=== PATIENT | female | born 1985 | race African-American/Black ===

== ENCOUNTER 2020-05-23 13:27 | Emergency (ER) | payer MEDICAID, SELFPAY ==
[2020-05-23 13:37] VITALS: BP 99/60; PULSE 79; RESP 16; TEMP 36.6; O2SAT 100; BMI 29.1
--- NOTE | 2020-05-23 14:02 | CT_ITS ---
EXAMINATION: CT ABDOMEN AND PELVIS WITHOUT CONTRAST CLINICAL INFORMATION: Back pain COMPARISON: Previous CT of the abdomen and pelvis January 2020 TECHNIQUE: Multidetector volumetric imaging was performed from the superior aspect of the liver through the pubic symphysis. Sagittal and coronal reformatted images were obtained on the technologist's workstation. This CT examination was performed using dose optimization techniques as appropriate, variously including the following: *Automated exposure control *Adjustment of mA and/or kV according to patient size (this includes techniques or standardized protocols for targeted exams where dose is matched to indication/reason for exam; i.e. extremities or head) *Use of iterative reconstruction technique DLP: 628 mGy-cm FINDINGS: LUNG BASES: The visualized lung bases are clear. There is a nodule in the medial inferior right breast that is partially visualized and measures 1 cm axial image 1. This is similar to January 2020 LIVER, GALLBLADDER, AND BILIARY TREE: The liver is normal in size, shape, and attenuation. No focal hepatic lesion or biliary ductal dilatation is present. The gallbladder is unremarkable with no evidence of radiopaque gallstones, gallbladder wall thickening, or obvious pericholecystic inflammatory changes. PANCREAS: Unremarkable. SPLEEN: Unremarkable. ADRENAL GLANDS: Unremarkable. KIDNEYS AND URETERS: The kidneys are normal in size, shape, and attenuation. No hydronephrosis, hydroureter, or calculi seen. No perinephric stranding. BLADDER: Unremarkable. GASTROINTESTINAL TRACT: The small and large bowel are unremarkable. The appendix has been removed. The stomach is unremarkable. ABDOMINAL WALL: No significant hernia is appreciated. LYMPH NODES: There is shotty bilateral inguinal lymphadenopathy that is stable. VASCULAR: Unremarkable. PELVIC VISCERA: Unremarkable. OSSEOUS STRUCTURES: Unremarkable. CT/CT abdomen pelvis wo con IMPRESSION: 1 cm nodule in the right medial inferior breast. This is only partially visualized. This appears unchanged from January 2020 exam. Correlation with physical exam and mammogram or ultrasound should be considered. Otherwise unremarkable exam.
--- NOTE | 2020-05-23 14:03 | ED_ITS ---
HPI - Back Pain/Injury General Chief Complaint: Back Pain/Injury Stated Complaint: LOWER BACK PAIN X1 DAY Time Seen by Provider: 05/23/20 13:42 Source: patient and EMS Mode of arrival: EMS Limitations: no limitations History of Present Illness HPI Narrative: 34yoF c PMHx of asthma presenting to the ED via EMS c complaints of lower back pain since yesterday. Worse with any type of movement. Relieved by nothing. Denies any additional complaints or concerns at this time. Related Data Previous Rx's Medication Instructions Recorded cyclobenzaprine 10 mg PO TID PRN #10 tab 05/23/20 ibuprofen 800 mg PO Q8H PRN #14 tab 05/23/20 lidocaine [Lidoderm] 1 patch TOPICAL DAILY #15 ea 05/23/20 oxycodone-acetaminophen [Percocet] 1 tab PO Q6H PRN #10 tab 05/23/20 prednisone 40 mg PO DAILY 5 Days #10 tab 05/23/20 Allergies Allergy/AdvReac Type Severity Reaction Status Date / Time No Known Allergies Allergy Unverified 03/22/20 15:41 Review of Systems Review of Systems: Constitutional : No trauma, No Weight loss, No Fever, No Chills, ENT/Mouth : No Hearing loss, No Ear Pain, No Nasal Congestion, No Sinus Pain, No Hoarseness, No sore throat, No Rhinorrhea, No Swallowing Difficulty Cardiovascular : No Chest Pain, No SOB Respiratory : No Cough, No Dyspnea Gastrointestinal : No Nausea, No Vomiting, No Diarrhea, No abdominal Pain, No Hematochezia, No Melena Genitourinary : No Dysuria, No Urinary Frequency, No Hematuria, No Urinary or Bowel Incontinence/retention Musculoskeletal : + Back pain, No neck pain, No joint stiffness, No joint swelling Skin : No Skin Lesions, No rash or signs of infection Neuro : No Weakness, No radiation, No Numbness, No Paresthesias, No headache, no loss of bowel or bladder incontinence, no saddle anesthesia Denies history of IV drug usage. Yes all other systems are reviewed and are negative [facility] Past Medical History Attestation statement: The following information was validated with the patient. Medical History Asthma Surgical History History of appendectomy Social History Social History Advance Directives: No Advance Directives Information Provided: No Physical Exam Vital Signs: Vital Signs: Last Vital Signs Temp 97.9 F 05/23/20 13:37 Pulse 79 05/23/20 13:37 Resp 16 05/23/20 13:37 BP 99/60 05/23/20 13:37 Pulse Ox 100 05/23/20 13:37 Body Mass Index 29.1 vital signs have been reviewed as normal and appeared to be correct. Blood pressure normal. Heart rate normal. Respiration rate normal. Temperature normal. Oxygen saturation normal. Appearance: Alert. Oriented X3. No acute distress. Head: Normal external exam. Normocephalic. Atraumatic. No Borjas signs noted. No raccoon eyes noted Eyes: PERRLA. EOMI. Conjunctiva and sclera normal. Eyelids normal. ENT: EAC normal. TM's Normal. Pharynx normal. Uvula midline. Moist mucous membranes. No trismus noted. No drooling noted. No muffled voice noted. Neck: Normal inspection. Neck supple. FROM. No adenopathy. Thyroid Normal. No meningeal signs. No neck mass noted. CVS: Normal heart rate and rhythm. Heart sound normal. No murmurs noted. Pulses normal throughout. Respiratory: No respiratory distress. Painless inspiration. Breath sounds normal. No wheezes/rales/rhonchi noted. Chest nontender. No accessory muscle usage noted or decreased air movement noted. Abdomen: Soft and nontender. Bowel sounds normal in all 4 quadrants. No distention noted. No organomegaly noted. No visible injury noted. Back: No CVA tenderness. Full range of motion noted. No obvious deformities, or edema. Mild para-spinal muscular tenderness from lumbar region to coccyx. Full ROM in back and lower extremities. 5/5 strength hip extension/flexion, abduction, adduction. Mild Lumbar pain with hip flexion against resistance. Straight leg raise test negative on right; Straight leg raise test negative on left; Reflexes normal ankle and knee bilaterally; EHL motor strength normal bilaterally Skin: Skin warm and dry. Normal skin color. Normal skin turgor. No rashes/lesions/lacerations noted. Extremities: No lower extremity edema. Extremities exhibit normal range of motion. Extremities nontender. Neuro: Oriented X 3. No motor deficit. No sensory deficit. Reflexes normal. Course Course Course Narrative: Pt c likely muscular pain, but could be herniated disc. Neuro exam shows no deficits. Not c/w AAA/epidural abscess/dissection.No high risk Hx (Incont, fever, immunosupp, recent surgery/LP, coag, signif trauma, wt loss, puls mass, hx/o Ca, TB, or IVDU) to warrant MRI today. Not c/w Pyelo/UTI/spinal fx. Not cauda equina syndrome. Will obtain a CT scan abdomen pelvis to evaluate for possible kidney stones or any other acute processes if negative will DC c meds and f/u. MDM - Back Pain/Injury Medical Records Attestation: I reviewed the patient's medical records. Imaging Data CT scan - abdomen: Attestation: I personally reviewed and interpreted this imaging study as follows: Radiologist's impression: FINDINGS: LUNG BASES: The visualized lung bases are clear. There is a nodule in the medial inferior right breast that is partially visualized and measures 1 cm axial image 1. This is similar to January 2020 LIVER, GALLBLADDER, AND BILIARY TREE: The liver is normal in size, shape, and attenuation. No focal hepatic lesion or biliary ductal dilatation is present. The gallbladder is unremarkable with no evidence of radiopaque gallstones, gallbladder wall thickening, or obvious pericholecystic inflammatory changes. PANCREAS: Unremarkable. SPLEEN: Unremarkable. ADRENAL GLANDS: Unremarkable. KIDNEYS AND URETERS: The kidneys are normal in size, shape, and attenuation. No hydronephrosis, hydroureter, or calculi seen. No perinephric stranding. BLADDER: Unremarkable. GASTROINTESTINAL TRACT: The small and large bowel are unremarkable. The appendix has been removed. The stomach is unremarkable. ABDOMINAL WALL: No significant hernia is appreciated. LYMPH NODES: There is shotty bilateral inguinal lymphadenopathy that is stable. VASCULAR: Unremarkable. PELVIC VISCERA: Unremarkable. OSSEOUS STRUCTURES: Unremarkable. CT/CT abdomen pelvis wo con IMPRESSION: 1 cm nodule in the right medial inferior breast. This is only partially visualized. This appears unchanged from January 2020 exam. Correlation with physical exam and mammogram or ultrasound should be considered. Otherwise unremarkable exam. Discharge Plan Discharge Clinical Impression: Back pain, Muscle spasm Patient Disposition: Home, Self-Care Instructions: Back Pain (ED), Lower Back Exercises (ED) Prescriptions: New cyclobenzaprine 10 mg tablet 10 mg PO TID PRN (Reason: muscle spasm) Qty: 10 RF: 0 ibuprofen 800 mg tablet 800 mg PO Q8H PRN (Reason: pain) Qty: 14 RF: 0 oxycodone-acetaminophen [Percocet] 5-325 mg tablet 1 tab PO Q6H PRN (Reason: pain) Qty: 10 RF: 0 prednisone 20 mg tablet 40 mg PO DAILY 5 Days Qty: 10 RF: 0 lidocaine [Lidoderm] 5 % adhesive patch,medicated 1 patch topical DAILY Qty: 15 RF: 0 Referrals: Physician,Unknown [Primary Care Provider] - 2 days (your pcp) Stand Alone Forms: Work/School Release Print Language: Singaporean
[2020-05-23] MEDS: Cyclobenzaprine HCl 10 MG TABLET PO (14:25)
[2020-05-23] MEDS: NaPROXEN 500 MG TABLET PO (14:25)
[2020-05-23] MEDS: oxyCODONE HCl Immed Release 5 MG TABLET PO (15:53)
== END 2020-05-23 16:31 | disposition home or self-care (01) ==
PROVIDERS: Emergency Provider Emergency Medicine
DX: M54.5 Low back pain (principal); M62.830 Muscle spasm of back; R10.9 Unspecified abdominal pain; Z79.899 Other long term (current) drug therapy
CPT/HCPCS: 74176; 99284

== ENCOUNTER 2020-10-23 12:01 | Emergency (ER) | payer MEDICAID, SELFPAY ==
--- NOTE | ~2020-10-23 | XR_ITS ---
EXAMINATION: XR CHEST CLINICAL INFORMATION: Cough. Chest tightness. COMPARISON: Thoracic spine radiographs dated 07/03/2019. TECHNIQUE: Frontal view of the chest was obtained. FINDINGS: The lungs are clear. The cardiomediastinal silhouette is normal in size. There is no pleural effusion or pneumothorax. No acute osseous abnormality. XR/XR chest 1V IMPRESSION: No acute cardiopulmonary findings.
--- NOTE | 2020-10-23 12:39 | ED_ITS ---
HPI - General Adult General Chief complaint: General Medical <FATOUMATA Lujan - Last Filed: 10/23/20 14:20> Stated complaint: RUNNING NOSE CHEST HEADACHE <FATOUMATA Lujan Last Filed: 10/23/20 14:20> Time Seen by Provider: 10/23/20 12:38 <FATOUMATA Lujan - Last Filed: 10/23/20 14:20> Source: patient <FATOUMATA Lujan - Last Filed: 10/23/20 14:20> Mode of arrival: ambulatory <FATOUMATA Lujan - Last Filed: 10/23/20 14:20> Limitations: no limitations <FATOUMATA Lujan Last Filed: 10/23/20 14:20> History of Present Illness HPI narrative: 35 y/o female with history of childhood asthma presenting with 2 days of chills, nasal congestion, headaches and dry cough. She also reports 2 episodes of nausea and vomiting. No abdominal pain but she reports a decreased appetite. No known COVID exposure but she works in a [employer]. She denies chest pain, SOB or [place]. <FATOUMATA Lujan - Last Filed: 10/23/20 14:20> MD complaint: COVID symptoms <FATOUMATA Lujan - Last Filed: 10/23/20 14:20> Onset (ago): day(s) (2) <FATOUMATA Lujan Last Filed: 10/23/20 14:20> Location: head, chest and abdomen <FATOUMATA Lujan Last Filed: 10/23/20 14:20> Radiation: non-radiation <FATOUMATA Lujan - Last Filed: 10/23/20 14:20> Severity: moderate <FATOUMATA Lujan Last Filed: 10/23/20 14:20> Quality: aching <FATOUMATA Lujan Last Filed: 10/23/20 14:20> Pain Consistency: intermittent <FATOUMATA Lujan Last Filed: 10/23/20 14:20> Relieving factors: rest <FATOUMATA Lujan Last Filed: 10/23/20 14:20> Exacerbating factors: none <FATOUMATA Lujan Last Filed: 10/23/20 14:20> Associated symptoms: cough, headaches, loss of appetite, nausea/vomiting and weakness <FATOUMATA Lujan - Last Filed: 10/23/20 14:20> Treatments prior to arrival: none <FATOUMATA Lujan - Last Filed: 10/23/20 14:20> Related Data Home medications: Previous Rx's Medication Instructions Recorded cyclobenzaprine 10 mg PO TID PRN #10 tab 05/23/20 ibuprofen 800 mg PO Q8H PRN #14 tab 05/23/20 lidocaine [Lidoderm] 1 patch TOPICAL DAILY #15 ea 05/23/20 oxycodone-acetaminophen [Percocet] 1 tab PO Q6H PRN #10 tab 05/23/20 prednisone 40 mg PO DAILY 5 Days #10 tab 05/23/20 <FATOUMATA Lujan - Last Filed: 10/23/20 14:20> Allergies/adverse reactions: Allergies Allergy/AdvReac Type Severity Reaction Status Date / Time No Known Allergies Allergy Unverified 03/22/20 15:41 <FATOUMATA Lujan - Last Filed: 10/23/20 14:20> Review of Systems Review of Systems: Constitutional: No Fever, No Chills ENT/Mouth: + sore throat, + Rhinorrhea Cardiovascular: No Chest Pain, No SOB Respiratory: + Cough, No Sputum, No Wheezing, No dyspnea Gastrointestinal: + Nausea, + Vomiting, No Diarrhea, No abdominal Pain Genitourinary: No Dysuria, No Urinary Frequency, No Hematuria Musculoskeletal: No joint pain, + Myalgias Skin: No Skin Lesions, No rash Neuro: No Weakness, No Numbness, + Dizziness, + Headache Psych: + Anxiety/Panic Heme/Lyph: No Lymphadenopathy <FATOUMATA Lujan - Last Filed: 10/23/20 14:20> [facility] Past Medical History Attestation statement: The following information was validated with the patient. <FATOUMATA Lujan - Last Filed: 10/23/20 14:20> Medical History: Medical History Asthma <FATOUMATA Lujan - Last Filed: 10/23/20 14:20> Surgical History: Surgical History History of appendectomy <FATOUMATA Lujan - Last Filed: 10/23/20 14:20> Social History Social History: Social History Alcohol intake: never Advance Directives: No Advance Directives Information Provided: No <FATOUMATA Lujan - Last Filed: 10/23/20 14:20> Physical Exam Vital Signs: Vital Signs: Last Vital Signs Temp 99.0 F 10/23/20 12:43 Pulse 95 10/23/20 12:43 Resp 16 10/23/20 12:43 BP 118/76 10/23/20 12:43 Pulse Ox 97 10/23/20 12:43 Body Mass Index 29.0 Appearance: Alert. Oriented X3. No acute distress. Eyes: Pupils equal, round and reactive to light. ENT: Pharynx normal. Neck: Normal inspection. Neck supple. CVS: Normal heart rate and rhythm. Pulses normal. Respiratory: No respiratory distress. Breath sounds normal. Abdomen: Soft and nontender. +BS x4 Skin: Skin warm and dry. Normal skin color. Normal skin turgor. No rashes. Extremities: No lower extremity edema. Neuro: Oriented X 3. Non-focal, steady gait. <FATOUMATA Lujan - Last Filed: 10/23/20 14:20> Vital Signs: Last Vital Signs Temp 99.0 F 10/23/20 12:43 Pulse 95 10/23/20 12:43 Resp 16 10/23/20 12:43 BP 118/76 10/23/20 12:43 Pulse Ox 97 10/23/20 12:43 Body Mass Index 29.0 <Graham Fried MD - Last Filed: 10/31/20 09:05> Course Course Course Narrative: Rapid medical exam: 35 yo otherwise healthy female presenting with feeling unwell for the last 2 days. She reports dry cough, body aches, headaches, nasal congestion, and chest tightness when coughing. Appears non-toxic and lungs are clear. Will get Viral PCR and CXR. <FATOUMATA Lujan - Last Filed: 10/23/20 14:20> I have reviewed the chart <Graham Fried MD - Last Filed: 10/31/20 09:05> Reevaluation(s) Reevaluation #1: CXR negative. Viral PCR + for COVID. Patient counseled on diagnosis and management. She is vitally stable and is stable for discharge home. <FATOUMATA Lujan - Last Filed: 10/23/20 14:20> Medical Decision Making Lab Data Labs: Lab Results 10/23/20 Range/Units 12:59 Coronavirus (PCR) POSITIVE A (Negative) Influenza Type A (PCR) NEGATIVE (Negative) Influenza Type B (PCR) NEGATIVE (Negative) RSV RNA Qual (PCR) NEGATIVE (Negative) <FATOUMATA Lujan - Last Filed: 10/23/20 14:20> Lab Results 10/23/20 Range/Units 12:59 Coronavirus (PCR) POSITIVE A (Negative) Influenza Type A (PCR) NEGATIVE (Negative) Influenza Type B (PCR) NEGATIVE (Negative) RSV RNA Qual (PCR) NEGATIVE (Negative) <Graham Fried MD - Last Filed: 10/31/20 09:05> Critical Care Time Critical Care Time Critical Care Time: No <FATOUMATA Lujan - Last Filed: 10/23/20 14:20> Discharge Plan Discharge Clinical Impression: COVID-19 <FATOUMATA Lujan - Last Filed: 10/23/20 14:20> Patient Disposition: Home, Self-Care <FATOUMATA Lujan - Last Filed: 10/23/20 14:20> Instructions: COVID-19 (Coronavirus Disease 2019) (ED) <FATOUMATA Lujan - Last Filed: 10/23/20 14:20> Additional Instructions: You were found to be COVID-19 POSITIVE today. Your chest x-ray and oxygen levels were normal. Rest. Drink plenty of fluids. Do not go out in public for the next 10 days. Take over the counter cold/flu medications as needed for your symptoms. Take Tylenol and/or Motrin as needed for fevers and body aches. Follow up with your doctor this week. If you shortness of breath worsens , if you develop difficulty breathing or any other concerning symptom come back to the ER for further evaluation. <FATOUMATA Lujan - Last Filed: 10/23/20 14:20> Prescriptions: No Action cyclobenzaprine 10 mg tablet 10 mg PO TID PRN (Reason: muscle spasm) Qty: 10 RF: 0 ibuprofen 800 mg tablet 800 mg PO Q8H PRN (Reason: pain) Qty: 14 RF: 0 oxycodone-acetaminophen [Percocet] 5-325 mg tablet 1 tab PO Q6H PRN (Reason: pain) Qty: 10 RF: 0 prednisone 20 mg tablet 40 mg PO DAILY 5 Days Qty: 10 RF: 0 lidocaine [Lidoderm] 5 % adhesive patch,medicated 1 patch topical DAILY Qty: 15 RF: 0 <FATOUMATA Lujan - Last Filed: 10/23/20 14:20> Stand Alone Forms: Work/School Release <FATOUMATA Lujan - Last Filed: 10/23/20 14:20> Interventions: ED Discharge Assessment Last Done: 10/23/20 14:16 <FATOUMATA Lujan - Last Filed: 10/23/20 14:20> Discharge Date/Time: 10/23/20 14:17 <FATOUMATA Lujan - Last Filed: 10/23/20 14:20>
[2020-10-23 12:43] VITALS: BP 118/76; PULSE 95; RESP 16; TEMP 37.2; O2SAT 97; BMI 29.0
[2020-10-23 13:46] LABS: Influenza A PCR NEGATIVE (Negative); Influenza B PCR NEGATIVE (Negative); Resp Syncy Virus RNA Qual PCR NEGATIVE (Negative); SARS COV2 PCR INHOUSE POSITIVE (Negative)
== END 2020-10-23 14:17 | disposition home or self-care (01) ==
PROVIDERS: Physician Assistant; Emergency Provider Emergency Medicine
DX: U07.1 COVID-19 (principal)
CPT/HCPCS: 0241U; 36415; 71045; 99283

== ENCOUNTER 2021-02-28 10:19 | Emergency (ER) | payer MEDICAID, SELFPAY ==
--- NOTE | ~2021-02-28 | US_ITS ---
EXAMINATION: US PELVIS TRANSVAGINAL CLINICAL INFORMATION: Pain evaluate for cyst. COMPARISON: March 03, 2011 TECHNIQUE: Transcutaneous and transvaginal pelvic ultrasound. Transvaginal scanning was performed after voiding to better evaluate the endometrium and adnexa. FINDINGS: The uterus measures 9.3 x 5.9 x 6.5 cm. The uterus is anteverted. No suspicious abnormalities region of the cervix. The uterine contour is smooth. The endometrium measures 1.2 cm. No focal abnormalities within the myometrium. The right ovary measures approximately 2.8 x 1.8 x 1.7 cm. The calculated right ovarian volume is approximately 4.5 mL. No right adnexal abnormalities appreciated. The left ovary measures 3.3 x 2.2 x 2.3 cm. The calculated left ovarian volume is approximately 8.7 mL. No suspicious left adnexal findings. There is a small amount of free pelvic fluid present. US/US pelvic and transvaginal IMPRESSION: Small amount of fluid seen within the cul-de-sac. No adnexal cysts identified. No significant abnormality seen.
--- NOTE | 2021-02-28 10:34 | ED_ITS ---
HPI - Abdominal Pain General Chief Complaint: General Medical Stated Complaint: abd and back pain Time Seen by Provider: 02/28/21 10:33 Source: patient Mode of arrival: ambulatory Limitations: no limitations History of Present Illness HPI narrative: lower abdominal cramping x 2 weeks, LMP in January neg tests at home MD elicited complaint: abdominal pain Onset (ago): week(s) (2) Pain Consistency: intermittent Location: suprapubic Quality: cramping Radiation: none Exacerbating factors: nothing Relieving factors: nothing Associated symptoms: other (late for menses) Related Data Previous Rx's Medication Instructions Recorded cyclobenzaprine 10 mg tablet 10 mg PO TID PRN #10 tab 05/23/20 ibuprofen 800 mg tablet 800 mg PO Q8H PRN #14 tab 05/23/20 lidocaine 5 % topical patch 1 patch TOPICAL DAILY #15 ea 05/23/20 (Lidoderm) oxycodone-acetaminophen 5 mg-325 1 tab PO Q6H PRN #10 tab 05/23/20 mg tablet (Percocet) prednisone 20 mg tablet 40 mg PO DAILY 5 Days #10 tab 05/23/20 Allergies Allergy/AdvReac Type Severity Reaction Status Date / Time No Known Allergies Allergy Unverified 03/22/20 15:41 Review of Systems Review of Systems Constitutional : No Weight loss, No Fever, No Chills ENT/Mouth : No sore throat, No Rhinorrhea Eyes: No Swelling, No Redness Cardiovascular : No Chest Pain, No SOB, NoEdema Respiratory : No Cough, No Sputum, No Wheezing Gastrointestinal : no Nausea, no Vomiting, no Diarrhea, positive abdominal Pain, No Hematochezia, No Melena Genitourinary : No Dysuria, No Urinary Frequency, No Hematuria, No Urgency , irregular menses Musculoskeletal : No joint pain, No Myalgias, No Joint Swelling Skin : No Skin Lesions, No rash Neuro : No Weakness, No Numbness, No Dizziness, No Headache Psych : No Anxiety/Panic, No Depression Heme/Lymph: No Bruising, No Lymphadenopathy Endocrine : No Polyuria, No Polydipsia All other systems reviewed and are negative. Physical Exam Vital Signs: Vital Signs: Last Vital Signs Temp 98.1 F 02/28/21 10:36 Pulse 83 02/28/21 10:36 Resp 16 02/28/21 10:36 BP 109/71 02/28/21 10:36 Pulse Ox 98 02/28/21 10:36 Body Mass Index 32.3 Appearance: Alert. Oriented X3. No acute distress. Eyes: Pupils equal, round and reactive to light. ENT: Pharynx normal. Neck: Normal inspection. Neck supple. CVS: Normal heart rate and rhythm. Pulses normal. Respiratory: No respiratory distress. Breath sounds normal. Abdomen: Soft and nontender. Skin: Skin warm and dry. Normal skin color. Normal skin turgor. Extremities: No lower extremity edema. No calf ttp Neuro: Oriented X 3. No motor deficit. No sensory deficit. Course Course Course Narrative: no acute findings stable for DC MDM - Abdominal Pain MDM Narrative Medical decision making narrative: 35 yo female with hx of asthma, s/p appendectomy comes in with lower abdominal cramping denies STI concerns reports late LMP with neg tests at home - will obtain quant, US for ovarian cyst, UA, STI panel - dispo per results and findings. Lab Data Labs: Lab Results 02/28/21 02/28/21 02/28/21 Range/Units 11:01 11:02 11:05 Beta HCG, Quant < 2 mIU/mL Urine Color YELLOW Urine Appearance HAZY Urine pH 6.0 (5.0-8.0) Ur Specific Vanderbilt 1.025 (1.005-1.025) Urine Protein NEG (NEG-TRACE) MG/DL Urine Glucose (UA) NEG (NEG) MG/DL Urine Ketones NEG (NEG) MG/DL Urine Blood NEG (NEG) Urine Nitrite NEG (NEG) Ur Leukocyte Esterase NEG (NEG) Chlam trachomat DNA PCR NOT DETECTED (Not Detect.) N.gonorrhoeae DNA (PCR) NOT DETECTED (Not Detect.) Discharge Plan Discharge Clinical Impression: Lower abdominal pain Patient Disposition: Home, Self-Care Instructions: Abdominal Pain (ED) Additional Instructions: return to ED for any worsening symptoms or concerns The right ovary measures approximately 2.8 x 1.8 x 1.7 cm. The calculated right ovarian volume is approximately 4.5 mL. No right adnexal abnormalities appreciated. The left ovary measures 3.3 x 2.2 x 2.3 cm. The calculated left ovarian volume is approximately 8.7 mL. No suspicious left adnexal findings. There is a small amount of free pelvic fluid present. US/US pelvic and transvaginal IMPRESSION: Small amount of fluid seen within the cul-de-sac. ? No adnexal cysts identified. ? No significant abnormality seen. Prescriptions: No Action cyclobenzaprine 10 mg tablet 10 mg PO TID PRN (Reason: muscle spasm) Qty: 10 RF: 0 ibuprofen 800 mg tablet 800 mg PO Q8H PRN (Reason: pain) Qty: 14 RF: 0 oxycodone-acetaminophen [Percocet] 5-325 mg tablet 1 tab PO Q6H PRN (Reason: pain) Qty: 10 RF: 0 prednisone 20 mg tablet 40 mg PO DAILY 5 Days Qty: 10 RF: 0 lidocaine [Lidoderm] 5 % adhesive patch,medicated 1 patch topical DAILY Qty: 15 RF: 0 Stand Alone Forms: Work/School Release [facility] Past Medical History Attestation statement: The following information was validated with the patient. Medical History Asthma Surgical History History of appendectomy Social History Social History (Updated 02/28/21 @ 10:42 by Leah Thao DO) Alcohol intake: never Patient Tobacco Use Status: Never used Tobacco Advance Directives: No Advance Directives Information Provided: No Patient : No
[2021-02-28 10:36] VITALS: BP 109/71; PULSE 83; RESP 16; TEMP 36.7; O2SAT 98; BMI 32.3
[2021-02-28 11:20] LABS: Glucose Urine UA NEG (NEG); Leukocyte Esterase Urine NEG (NEG); Nitrite Urine NEG (NEG); Specific Gravity - Urine 1.025 (1.005-1.025); Urine Blood NEG (NEG); Urine Ketones NEG (NEG); Urine Protein NEG (NEG-TRACE)
[2021-02-28 11:23] LABS: Appearance Urine HAZY; Color Urine YELLOW
[2021-02-28 11:41] LABS: HCG Quantitative < 2 mIU/mL
[2021-02-28] MEDS: cephALEXin 500 MG CAPSULE PO (12:10)
[2021-02-28 12:57] LABS: CT PCR NOT DETECTED (Not Detect.); NG PCR NOT DETECTED (Not Detect.)
== END 2021-02-28 13:58 | disposition home or self-care (01) ==
PROVIDERS: Emergency Provider Emergency Medicine
DX: R10.30 Lower abdominal pain, unspecified (principal); Z86.16 Personal history of COVID-19
CPT/HCPCS: 36415; 76830; 76856; 81003; 84702; 87491; 87591; 99283; 99284

== ENCOUNTER 2021-03-07 13:05 | Emergency (ER) | payer MEDICAID, SELFPAY ==
[2021-03-07 13:28] VITALS: BP 106/76; PULSE 88; RESP 18; TEMP 36.8; O2SAT 99; BMI 31.9
--- NOTE | 2021-03-07 15:16 | ED_ITS ---
HPI - General Adult General Chief complaint: Upper Respiratory Symptoms Stated complaint: chills, sore throat Time Seen by Provider: 03/07/21 15:16 Source: patient Limitations: no limitations History of Present Illness HPI narrative: Patient presenting with 2 day history of cough and body aches. Patient has not been vaccinated for COVID-19 no known COVID 19 exposure. Symptoms are mild to moderate positive tobacco history denies history of diabetes. Slight history of asthma. No recent travel history denies COVID-19 in the past. No chest pain fever chills at this time. Cough is nonproductive. Related Data Previous Rx's Medication Instructions Recorded cyclobenzaprine 10 mg tablet 10 mg PO TID PRN #10 tab 05/23/20 ibuprofen 800 mg tablet 800 mg PO Q8H PRN #14 tab 05/23/20 lidocaine 5 % topical patch 1 patch TOPICAL DAILY #15 ea 05/23/20 (Lidoderm) oxycodone-acetaminophen 5 mg-325 1 tab PO Q6H PRN #10 tab 05/23/20 mg tablet (Percocet) prednisone 20 mg tablet 40 mg PO DAILY 5 Days #10 tab 05/23/20 Allergies Allergy/AdvReac Type Severity Reaction Status Date / Time No Known Allergies Allergy Verified 03/07/21 13:28 Review of Systems Review of Systems: Constitutional : No Weight loss, No Fever, No Chills, No Night Sweats, No Fatigue, No Malaise, positive body ENT/Mouth : No Hearing loss, No Ear Pain, positive nasal congestion sore throat Eyes: No Eye Pain, No Swelling, No Redness, No Foreign Body, No Discharge, No Vision Changes Cardiovascular : No Chest Pain, No SOB, No Dyspnea on Exertion, No Orthopnea, No Edema, No Palpitations Respiratory : Positive Cough, No Sputum, No Wheezing, No Dyspnea Gastrointestinal : No Nausea, No Vomiting, No Diarrhea, No Constipation, No abdominal Pain, No Hematochezia, No Melena Musculoskeletal : No joint pain, No Myalgias, No Joint SwellingSkin : No Skin Lesions, No rash Neuro : No Weakness, No Numbness, No Paresthesias, No Loss of Consciousness, No Dizziness, No Headache Psych : No Anxiety/Panic, No Depression, No SI/HI/AH/VH, No Social Issues, Heme/Lymph: No Bruising, No Bleeding,No Lymphadenopathy Endocrine : No Polyuria, No Polydipsia, No Temperature Intolerance [facility] Past Medical History Attestation statement: The following information was validated with the patient. Medical History Asthma COVID-19 Surgical History History of appendectomy Social History Social History Alcohol intake: never Patient Tobacco Use Status: Never used Tobacco Advance Directives: No Advance Directives Information Provided: No Patient : No Physical Exam Vital Signs: Vital Signs: Last Vital Signs Temp 98.2 F 03/07/21 13:28 Pulse 88 03/07/21 13:28 Resp 18 03/07/21 13:28 BP 106/76 03/07/21 13:28 Pulse Ox 99 03/07/21 13:28 Body Mass Index 31.9 vital signs have been reviewed as normal and appeared to be correct. Blood pressure normal. Heart rate normal. Respiration rate normal. Temperature normal. Oxygen saturation normal. Appearance: Alert. Oriented X3. No acute distress. Head: Normal external exam. Normocephalic. Atraumatic. Eyes: PERRLA. EOMI. Conjunctiva and sclera normal. Eyelids normal. ENT: Pharynx normal. Uvula midline. Moist mucous membranes. No trismus noted. No drooling noted. No muffled voice noted. Neck: Soft full range of motion, no JVD CVS: Heart regular rate and rhythm no murmurs and rubs Respiratory: Breath sounds are clear to auscultation bilaterally. No accessory muscle use noted. Abdomen: Soft nontender no rebound or guarding positive bowel sounds Back: No CVA tenderness. Full range of motion noted. Skin: Skin warm and dry. Normal skin color. Normal skin turgor. No rashes/lesions/lacerations noted. Extremities: No lower extremity edema. Extremities exhibit normal range of motion. Extremities nontender. Neuro: Oriented X 3. No motor deficit. No sensory deficit. Reflexes normal. Course Course Course Narrative: COVID-19 URI Viral syndrome Asthma exacerbation COVID-19 swab obtained Vital signs stable O2 sat 99% on room air Medical Decision Making Lab Data Labs: Lab Results 03/07/21 Range/Units 14:53 COVID-19 (PHI) Negative (Negative) COVID-19 Clin Com See Note Discharge Plan Discharge Clinical Impression: Upper respiratory infection Qualifiers: URI type: acute nasopharyngitis (common cold) Qualified Code(s): J00 - Acute nasopharyngitis [common cold] Patient Disposition: Home, Self-Care Instructions: Upper Respiratory Infection (ED) Additional Instructions: COVID-19 swab is negative Increase fluids rest Symptoms likely secondary to viral URI Prescriptions: No Action cyclobenzaprine 10 mg tablet 10 mg PO TID PRN (Reason: muscle spasm) Qty: 10 RF: 0 ibuprofen 800 mg tablet 800 mg PO Q8H PRN (Reason: pain) Qty: 14 RF: 0 oxycodone-acetaminophen [Percocet] 5-325 mg tablet 1 tab PO Q6H PRN (Reason: pain) Qty: 10 RF: 0 prednisone 20 mg tablet 40 mg PO DAILY 5 Days Qty: 10 RF: 0 lidocaine [Lidoderm] 5 % adhesive patch,medicated 1 patch topical DAILY Qty: 15 RF: 0
[2021-03-07 15:21] LABS: COVID-19 Test Negative (Negative)
== END 2021-03-07 15:51 | disposition home or self-care (01) ==
PROVIDERS: Emergency Provider Emergency Medicine
DX: J02.9 Acute pharyngitis, unspecified (principal); Z20.822 Contact with and (suspected) exposure to COVID-19; Z79.899 Other long term (current) drug therapy
CPT/HCPCS: 36415; 87635; 99283

== ENCOUNTER 2021-04-22 12:01 | Emergency (ER) | payer MEDICAID, SELFPAY ==
--- NOTE | ~2021-04-22 | XR_ITS ---
EXAMINATION: XR ANKLE, LEFT CLINICAL INFORMATION: Injury, pain COMPARISON: None TECHNIQUE: AP, lateral, and mortise views of the left ankle. FINDINGS: The bones and soft tissues are normal. No fracture. Alignment is anatomic. Joint spaces are maintained. No joint effusion. XR/XR ankle LT 2V IMPRESSION: Normal left ankle.
[2021-04-22 13:00] VITALS: BP 97/73; PULSE 73; RESP 18; TEMP 36.7; O2SAT 99; BMI 31.9
--- NOTE | 2021-04-22 13:01 | ED_ITS ---
HPI - Extremity Injury (Lower) General Chief Complaint: Extremity Problem Stated Complaint: ankle injury, low back pain Time Seen by Provider: 04/22/21 12:54 Related Data Previous Rx's Medication Instructions Recorded cyclobenzaprine 10 mg tablet 10 mg PO TID PRN #10 tab 05/23/20 ibuprofen 800 mg tablet 800 mg PO Q8H PRN #14 tab 05/23/20 lidocaine 5 % topical patch 1 patch TOPICAL DAILY #15 ea 05/23/20 (Lidoderm) oxycodone-acetaminophen 5 mg-325 1 tab PO Q6H PRN #10 tab 05/23/20 mg tablet (Percocet) prednisone 20 mg tablet 40 mg PO DAILY 5 Days #10 tab 05/23/20 ketorolac 10 mg tablet 10 mg PO TID 5 Days #15 tab 04/22/21 Allergies Allergy/AdvReac Type Severity Reaction Status Date / Time No Known Allergies Allergy Verified 03/07/21 13:28 [facility] Past Medical History Medical History Asthma COVID-19 Surgical History History of appendectomy Social History Social History Alcohol intake: never Patient Tobacco Use Status: Never used Tobacco Advance Directives: No Advance Directives Information Provided: No Physical Exam Vital Signs: Vital Signs: Last Vital Signs Temp 98.0 F 04/22/21 13:00 Pulse 73 04/22/21 13:00 Resp 18 04/22/21 13:00 BP 97/73 04/22/21 13:00 Pulse Ox 99 04/22/21 13:00 Body Mass Index 31.9 Course Course Course Narrative: 1300-This is rapid medical exam. 35 yo female here with complaints of left ankle pain and swelling after injury . Pain radiates up the leg. Will check x-ray. Deferred additional HPI, ROS, and PE to primary provider. Discharge Plan Discharge Clinical Impression: Ankle sprain Qualifiers: Encounter type: initial encounter Involved ligament of ankle: posterior talofibular ligament Laterality: left Qualified Code(s): S93.492A - Sprain of other ligament of left ankle, initial encounter Patient Disposition: Home, Self-Care Instructions: Ankle Sprain (ED), Crutch Instructions (ED), Ankle Stirrup Splint (ED), R.I.C.E. Treatment (ED) Additional Instructions: Please rest, ice, and elevate your ankle. Please use the Aircast until you are seen and released by Orthopedics. As we discussed, the more you baby your ankle the quicker ankle rolled recover. Please fill the prescription for ketorolac and take as prescribed. Do not take any ibuprofen, Motrin, Aleve, Excedrin, any ibuprofen containing medicine while you are on the ketorolac. Please do not weightbear, and use your crutches. I have written you a note for work that when you return to work you must be on light duty with no walking until Orthopedics releases you. I have referred you to orthopedics and they should be calling you. Prescriptions: New ketorolac 10 mg tablet 10 mg PO TID 5 Days Qty: 15 RF: 0 No Action cyclobenzaprine 10 mg tablet 10 mg PO TID PRN (Reason: muscle spasm) Qty: 10 RF: 0 ibuprofen 800 mg tablet 800 mg PO Q8H PRN (Reason: pain) Qty: 14 RF: 0 oxycodone-acetaminophen [Percocet] 5-325 mg tablet 1 tab PO Q6H PRN (Reason: pain) Qty: 10 RF: 0 prednisone 20 mg tablet 40 mg PO DAILY 5 Days Qty: 10 RF: 0 lidocaine [Lidoderm] 5 % adhesive patch,medicated 1 patch topical DAILY Qty: 15 RF: 0 Referrals: Everett Landeros MD [Physician] - 2 days (ankle sprain) Stand Alone Forms: Work/School Release Interventions: ED Discharge Assessment Last Done: 04/22/21 15:04 Discharge Date/Time: 04/22/21 15:05
[2021-04-22] MEDS: oxyCODONE HCl Immed Release 5 MG TABLET PO (14:44)
[2021-04-22] MEDS: Ketorolac Tromethamine 15 MG/ML VIAL IM (14:45)
--- NOTE | 2021-04-22 14:59 | ED_ITS ---
HPI - Extremity Problem General Chief complaint: Extremity Problem Stated complaint: ankle injury, low back pain Time Seen by Provider: 04/22/21 12:54 Source: patient Mode of arrival: ambulatory Limitations: no limitations History of Present Illness HPI Narrative: Five days of left ankle pain after inverting left ankle while running down stairs. Hurts to bear weight but patient can weightbear. Related Data Previous Rx's Medication Instructions Recorded cyclobenzaprine 10 mg tablet 10 mg PO TID PRN #10 tab 05/23/20 ibuprofen 800 mg tablet 800 mg PO Q8H PRN #14 tab 05/23/20 lidocaine 5 % topical patch 1 patch TOPICAL DAILY #15 ea 05/23/20 (Lidoderm) oxycodone-acetaminophen 5 mg-325 1 tab PO Q6H PRN #10 tab 05/23/20 mg tablet (Percocet) prednisone 20 mg tablet 40 mg PO DAILY 5 Days #10 tab 05/23/20 ketorolac 10 mg tablet 10 mg PO TID 5 Days #15 tab 04/22/21 Allergies Allergy/AdvReac Type Severity Reaction Status Date / Time No Known Allergies Allergy Verified 03/07/21 13:28 Review of Systems Review of Systems: Constitutional : No Weight loss, No Fever, No Chills, No Night Sweats,No Fatigue, No Malaise ENT/Mouth : No Hearing loss, No Ear Pain, No Nasal Congestion, NoSinus Pain, No Hoarseness, No sore throat, No Rhinorrhea, NoSwallowing Difficulty Eyes: No Eye Pain, No Swelling, No Redness, No Foreign Body, NoDischarge, No Vision Changes Cardiovascular : No Chest Pain, No SOB, No Dyspnea on Exertion, NoOrthopnea, No Edema, No Palpitations Respiratory : No Cough, No Sputum, No Wheezing, No Smoke Exposure, No Dyspnea Gastrointestinal : No Nausea, No Vomiting, No Diarrhea, NoConstipation, No a bdominal Pain, No Hematochezia, No Melena Musculoskeletal :left ankle pain Skin : No Skin Lesions, No rash Neuro : No Weakness, No Numbness, No Paresthesias, No Loss ofConsciousness, No Dizziness, No Headache PMFSH Past Medical History Medical History Asthma COVID-19 Surgical History History of appendectomy Social History Social History Alcohol intake: never Patient Tobacco Use Status: Never used Tobacco Advance Directives: No Advance Directives Information Provided: No Physical Exam Vital Signs: Vital Signs: Last Vital Signs Temp 98.0 F 04/22/21 13:00 Pulse 73 04/22/21 13:00 Resp 18 04/22/21 13:00 BP 97/73 04/22/21 13:00 Pulse Ox 99 04/22/21 13:00 Body Mass Index 31.9 Const: General: cooperative, no acute distress, well developed, alert and awake Nutritional Appearance: well nourished Orientation/consciousness: patient oriented x3 Limitations: no limitations Eyes: Pupils: Equal, round and reactive pupils present Neck: Neck: Yes full ROM, Yes no lymphadenopathy and Yes supple Resp: Effort & Inspection: normal respiratory effort and able to speak in complete sentences Auscultation: clear to auscultation bilaterally, no crackles, no rales, no rhonchi and no wheezes Cardio: Rate: regular rate Rhythm: regular rhythm Heart sounds: S1 normal heart sound present and S2 normal heart sound present Skin: General skin exam: no rashes or lesions noted Neuro: General: patient oriented x3, tone normal and moves all extremities Cranial nerves: Yes Equal, round and reactive pupils present Extrem: Left lower extremity: normal capillary refill and ankle Details: tenderness Location: of the lateral malleolus and of the anterior talofibular ligament, swelling Details: laterally, no edema and normal ROM; Negative for no warmth, no lacerations, no ecchymosis, no crepitus and achilles tendon exam normal; No no cyanosis Psych: Appearance: grossly normal Affect: normal affect Attitude: cooperative Thought process: Normal thought process present Course Course Course Narrative: Left ankle sprain. X-ray negative. Patient provided with air cast, crutches, instructions for RICE, follow-up with orthopedics Discharge Plan Discharge Clinical Impression: Ankle sprain Qualifiers: Encounter type: initial encounter Involved ligament of ankle: posterior talofibular ligament Laterality: left Qualified Code(s): S93.492A - Sprain of other ligament of left ankle, initial encounter Patient Disposition: Home, Self-Care Instructions: Ankle Sprain (ED), Crutch Instructions (ED), Ankle Stirrup Splint (ED), R.I.C.E. Treatment (ED) Additional Instructions: Please rest, ice, and elevate your ankle. Please use the Aircast until you are seen and released by Orthopedics. As we discussed, the more you baby your ankle the quicker ankle rolled recover. Please fill the prescription for ketorolac and take as prescribed. Do not take any ibuprofen, Motrin, Aleve, Excedrin, any ibuprofen containing medicine while you are on the ketorolac. Please do not weightbear, and use your crutches. I have written you a note for work that when you return to work you must be on light duty with no walking until Orthopedics releases you. I have referred you to orthopedics and they should be calling you. Prescriptions: New ketorolac 10 mg tablet 10 mg PO TID 5 Days Qty: 15 RF: 0 No Action cyclobenzaprine 10 mg tablet 10 mg PO TID PRN (Reason: muscle spasm) Qty: 10 RF: 0 ibuprofen 800 mg tablet 800 mg PO Q8H PRN (Reason: pain) Qty: 14 RF: 0 oxycodone-acetaminophen [Percocet] 5-325 mg tablet 1 tab PO Q6H PRN (Reason: pain) Qty: 10 RF: 0 prednisone 20 mg tablet 40 mg PO DAILY 5 Days Qty: 10 RF: 0 lidocaine [Lidoderm] 5 % adhesive patch,medicated 1 patch topical DAILY Qty: 15 RF: 0 Referrals: Everett Landeros MD [Physician] - 2 days (ankle sprain) Stand Alone Forms: Work/School Release
== END 2021-04-22 15:05 | disposition home or self-care (01) ==
PROVIDERS: Emergency Provider Student in an Organized Health Care Education/Training Program
DX: S93.492A Sprain of other ligament of left ankle, initial encounter (principal); M25.572 Pain in left ankle and joints of left foot; W10.9XXA Fall (on) (from) unspecified stairs and steps, initial encounter; Y93.9 Activity, unspecified; Y92.9 Unspecified place or not applicable; Y99.9 Unspecified external cause status
CPT/HCPCS: 29515; 73600; 96372; 99284; J1885

== ENCOUNTER → 2021-05-16 09:01 | Outpatient (BNVA) | payer MEDICAID, SELFPAY | PROVIDERS: Referring Provider Nurse Practitioner Family; Visit Provider Surgery | DX: L73.2 Hidradenitis suppurativa (principal) | CPT/HCPCS: 99202 ==

== ENCOUNTER 2021-05-29 07:15 | Day surgery (SDC) | payer MEDICAID, SELFPAY ==
[2021-05-22 12:41] VITALS: BMI 31.1
--- NOTE | 2021-05-28 09:01 | HO.ANESPROP2 ---
Documented by User: Miracle Childs NP 05/28/21 09:01 HPI - Anesthesia Eval Consult details Narrative: 35yo F for Wide Excision of Right Axillary Hidradenitis Suppurativa PMFSH Active Problems Active Problems: All Active Problems (Updated 05/22/21 @ 12:35 by Scarlett Roman RN) COVID-19 (Acute) Hidradenitis suppurativa (Acute) History of appendectomy (Acute) Asthma (Acute) Past Medical History Medical History (Updated 05/22/21 @ 12:35 by Scarlett Roman RN) Asthma COVID-19 Family History Family History Brother Leukemia Surgical History Surgical History (Updated 05/22/21 @ 12:35 by Scarlett Roman RN) History of appendectomy History of axillary surgery Social History Social History Alcohol intake: never Patient Tobacco Use Status: Never used Tobacco Advance Directives Information Provided: Yes (informational brochure mailed) Advance Directives on File: No Meds Allergies Allergy/AdvReac Type Severity Reaction Status Date / Time No Known Allergies Allergy Verified 05/29/21 07:26 Exam Exam Date and Time: May 28, 2021 09 Height,Weight and Vital Signs: Height 5 ft 6 in Weight 87.543 kg Assessment and Plan Assessment Anesthesia Assessment: Chart Reviewed Documented by User: Angelia Beltran MD 05/29/21 07:48 PMFSH Past Medical History Medical History (Updated 05/22/21 @ 12:35 by Scarlett Roman RN) Asthma COVID-19 Family History Family History Brother Leukemia Family history of problems with anesthesia: No Surgical History Surgical History (Updated 05/22/21 @ 12:35 by Scarlett Roman RN) History of appendectomy History of axillary surgery History of Problems with Anesthesia: No Social History Social History Alcohol intake: never Patient Tobacco Use Status: Never used Tobacco Advance Directives Information Provided: Yes (informational brochure mailed) Advance Directives on File: No Meds Allergies Allergy/AdvReac Type Severity Reaction Status Date / Time No Known Allergies Allergy Verified 05/29/21 07:26 Exam Airway Mallampati Class: II TM Dist: >3cm Neck ROM: Full Heart: rrr Lungs: cta Assessment and Plan Assessment Anesthesia Assessment: Anesthesia Plan Discussed and Chart Reviewed Final Anesthetic Review Family History of Problems with Anesthesia: No History of Problems with Anesthesia: No NPO: Yes ASA Class: II Final Preanesthetic Review: No Changes in Pt Med Stat, Meds/Allgs Chart Reviewed and Consent Obtained/Reviewed Patient Risk: Intermediate Procedure Risk: Intermediate Anesthetic Plan Anesthetic Plan: GA Disposition: Standard PACU
[2021-05-29] VITALS (9 sets, daily range): BP systolic 111–121; BP diastolic 70–83; PULSE 72–83; RESP 16; TEMP 36.1–36.6; O2SAT 96–99
[2021-05-29 07:47] LABS: UPreg QC Valid YES; Urine Pregnancy NEGATIVE (NEGATIVE)
[2021-05-29] MEDS: Lactated Ringers 1,000 ML 100 ML IVCONT (08:24)
--- NOTE | 2021-05-29 08:52 | P.OP_ITS ---
Operative Note Operative Note Date of Service: 05/29/21 Narrative: Preoperative diagnosis: Hidradenitis, right axilla Postoperative diagnosis: same Procedure: wide excision, hidradenitis, right axilla Surgeon: Ron Gibbs MD Engineering Administrator: Uyen Bar PA-C Anesthesia: General ET Indications for procedure: 35 yo female presenting with a recurrent hidradenitis right axilla Operative findings: Wide area of hidradenitis, right axilla Specimen: hidradenitis, right axilla Estimated blood loss:15 mls Complications:none Procedure details: Patient was brought to the OR placed in a supine position. After administering general anesthesia the patient's right axilla was prepped with Betadine and draped in a sterile fashion. A surgical time-out was called the consent confirmed. Patient received preoperative antibiotics and Venodyne boots were in place. Local anesthesia consisting of 0.5% Sensorcaine was infiltrated around the area of hidradenitis in the right axilla. An elliptical incision was then made oriented transversely to include multiple areas of hidrad enitis in the right axilla. Incision measuring approximately 10 x 4 cm was created and carried down into the subcutaneous tissue. Electrocautery was then used to dissect the skin off the subcutaneous tissue. Hemostasis was assured using electrocautery. Specimen was passed off the table and sent to pathology for further examination. Wounds were irrigated with saline solution and suctioned dry. Wounds were again checked for hemostasis. Dermis was then reapproximated using interrupted 3-0 Polysorb sutures. Skin was closed using interrupted 4-0 nylon sutures. Sterile dressings consisting of 4 x 4 gauze and paper tape were then applied. The patient tolerated the procedure well. Sponge, instrument, and needle counts reported as correct. The patient was transferred to PACU in stable condition.
--- NOTE | 2021-05-29 08:52 | MHC.SHP ---
Pre-Procedural Eval Section A Date of Service: 05/29/21 The patient is an INPATIENT: No Changes since office visit: Yes Patient answered all questions; No Cold of Flu in the past 2 weeks, No New Medical Problems and No Changes in Medication The History & Physical has been completed within 30 days and I have reviewed it.: Yes Section B Chief Complaint: Hidradenitis suppurativa Allergies: Allergies Allergy/AdvReac Type Severity Reaction Status Date / Time No Known Allergies Allergy Verified 05/29/21 07:26 Plan Diagnosis/Plan: Unchanged I have reviewed the history and physical and performed a pertinent physical examination on my patient. No changes have occurred unless specified.
[2021-05-29] MEDS: oxyCODONE HCl Immed Release 5 MG TABLET PO ×2 (10:33→10:50)
== END 2021-05-29 12:23 | disposition home or self-care (01) ==
PROVIDERS: Nurse Practitioner; Visit Provider Surgery
PROC: (CPT 11450; principal; 2021-05-29 08:40)
DX: L73.2 Hidradenitis suppurativa (principal); J45.909 Unspecified asthma, uncomplicated; Z86.16 Personal history of COVID-19
CPT/HCPCS: 11450; 81025; 88305; J0690; J1100; J1885; J2250; J2405; J3010

== ENCOUNTER → 2021-06-06 10:19 | Outpatient (BNVA) | payer MEDICAID, SELFPAY | PROVIDERS: Visit Provider Surgery | DX: Z48.817 Encounter for surgical aftercare following surgery on the skin and subcutaneous tissue (principal); L73.2 Hidradenitis suppurativa | CPT/HCPCS: 99212 ==

== ENCOUNTER 2021-10-13 13:11 | Emergency (ER) | payer MEDICAID, SELFPAY ==
[2021-10-13 13:21] VITALS: BP 107/70; PULSE 74; RESP 16; TEMP 36.7; O2SAT 98; BMI 32.3
[2021-10-13 13:40] LABS: Strep A Nucleic Acid Negative (Negative)
[2021-10-13 14:54] LABS: COVID-19 Test Negative (Negative); IDNOW Serial# 16C4AD1C; Influenza A Negative (Negative); Influenza B2 Negative (Negative)
--- NOTE | 2021-10-13 15:11 | ED_ITS ---
HPI - General Adult General Chief complaint: Upper Respiratory Symptoms Stated complaint: Fever/Back pain/Sore throat Time Seen by Provider: 10/13/21 14:20 Source: patient Mode of arrival: ambulatory Limitations: no limitations History of Present Illness HPI narrative: 36-year-old female presents to ED for sore throat also chronic lower back pain exacerbation. She states her child recently tested positive for flu. Patient denies any coughing, chest pain or shortness of breath. Patient states fever of 100.9. Patient denies any dysuria, hematuria, none pain, nausea, abdominal pain, or vomiting. Patient denies any immunocompromise diseases. Patient denies any IV drug use. Related Data Previous Rx's Medication Instructions Recorded cyclobenzaprine 10 mg tablet 10 mg PO TID PRN #10 tab 05/23/20 ibuprofen 800 mg tablet 800 mg PO Q8H PRN #14 tab 05/23/20 lidocaine 5 % topical patch 1 patch TOPICAL DAILY #15 ea 05/23/20 (Lidoderm) prednisone 20 mg tablet 40 mg PO DAILY 5 Days #10 tab 05/23/20 ketorolac 10 mg tablet 10 mg PO TID 5 Days #15 tab 04/22/21 acetaminophen 325 mg capsule 650 mg PO Q6H PRN #30 cap 06/03/21 (Tylenol) doxycycline hyclate 100 mg tablet 100 mg PO BID #20 tab 06/04/21 Allergies Allergy/AdvReac Type Severity Reaction Status Date / Time No Known Allergies Allergy Verified 06/06/21 10:28 Review of Systems Review of Systems: Sore throat, fever, and low back pain. Yes all other systems are reviewed and are negative PMF Past Medical History Medical History (Updated 10/13/21 @ 16:21 by FATOUMATA Hinojosa) Asthma COVID-19 Surgical History (Updated 06/06/21 @ 10:28 by ESA Wilson) History of appendectomy History of axillary surgery History of axillary surgery (~2020) Family History Family History Brother Leukemia Social History Social History Alcohol intake: never Patient Tobacco Use Status: Never used Tobacco Advance Directives: No Physical Exam ED Vital Signs: Vital Signs - 24 hr 10/13/21 13:21 10/13/21 16:32 Temperature 98.1 F 98.5 F Pulse Rate 74 80 Respiratory Rate 16 16 Blood Pressure 107/70 111/73 Pulse Oximetry 98 96 BMI result Body Mass Index 32.3 Const General: cooperative, healthy appearing, comfortable, no acute distress, well developed, alert, awake and Physically active Orientation/consciousness: patient oriented x3 [facility] Head: Yes normal to inspection, Yes No palpable skull fracture present, Yes normocephalic, Yes atraumatic and No abrasion Ears: hearing grossly normal bilaterally, external ears normal, TM's normal bilaterally, EAC's normal, mastoids normal and no periauricular adenopathy Throat: Yes posterior oropharynx normal, Yes tonsils normal and Yes uvula midline Eyes General: appearance normal, both eyes and all related structures Neck Neck: Yes normal visual inspection, Yes full ROM, Yes no lymphadenopathy, Yes no meningeal signs, Yes trachea midline, Yes supple, No anterior neck swelling and No tender Chest Chest palpation & inspection: normal inspection of the chest and normal palpation of entire chest wall Resp Effort & Inspection: normal respiratory effort and able to speak in complete sentences Auscultation: clear to auscultation bilaterally Cardio Jugular venous distension: no JVD Heart sounds: S1 normal heart sound present and S2 normal heart sound present GI Inspection: Yes normal to inspection and No abdominal wall ecchymosis Palpation (GI): Soft to palpation, not firm, nontender, no guarding and not rigid General: No CVA tenderness and Yes no CVA tenderness Back/Spine/Pelvis Back: no CVA tenderness, No CVA tenderness and No back tenderness Skin General skin exam: no rashes or lesions noted and elasticity normal Neuro General: patient oriented x3, gait normal and no meningeal signs Cranial nerves: Yes CN's II-XII intact bilaterally Extrem General: Yes normal to inspection and Yes full ROM Psych Appearance: grossly normal, well kempt and not disheveled Course Course Course Narrative: Strep test ordered and negative. Will add COVID influenza. Reevaluation(s) Reevaluation #1: Influenza COVID negative for any UA to make sure there is no UTI although very unlikely the patient have any spinal CVA tenderness Time: 15:19 Reevaluation #2: UA negative. Patient is safe for discharge. Not suspecting any epidural abscess or cauda equinus syndrome. Patient denies any urinary/bowel incontinence. Time: 16:18 Medical Decision Making MDM Narrative Medical decision making narrative: Viral syndrome. Lab Data Labs: Lab Results 10/13/21 10/13/21 10/13/21 Range/Units 13:28 14:27 14:27 Urine Color Urine Appearance Urine pH (5.0-8.0) Ur Specific Wayne (1.005-1.025) Urine Protein (NEG-TRACE) MG/DL Urine Glucose (UA) (NEG) MG/DL Urine Ketones (NEG) MG/DL Urine Blood (NEG) Urine Nitrite (NEG) Ur Leukocyte Esterase (NEG) Urine RBC (0) /HPF Urine WBC (0-4) /HPF Ur Squamous Epith Cells /LPF Urine Bacteria /LPF Urine Mucus /LPF Urine Test (NEGATIVE) COVID-19 (PHI) Negative (Negative) COVID-19 Clin Com See Note Influenza Type A (ALEJANDRA) Negative (Negative) Influenza Type B (ALEJANDRA) Negative (Negative) Influenza A & B Note See Note S. pyogenes GrpA ALEJANDRA Negative (Negative) 10/13/21 10/13/21 Range/Units 15:27 15:27 Urine Color YELLOW Urine Appearance CLEAR Urine pH 7.0 (5.0-8.0) Ur Specific Wayne 1.020 (1.005-1.025) Urine Protein NEG (NEG-TRACE) MG/DL Urine Glucose (UA) NEG (NEG) MG/DL Urine Ketones NEG (NEG) MG/DL Urine Blood TRACE (NEG) Urine Nitrite NEG (NEG) Ur Leukocyte Esterase NEG (NEG) Urine RBC 1-4 (0) /HPF Urine WBC 0-2 (0-4) /HPF Ur Squamous Epith Cells 2+ /LPF Urine Bacteria 1+ /LPF Urine Mucus TRACE /LPF Urine Test NEGATIVE (NEGATIVE) COVID-19 (PHI) (Negative) COVID-19 Clin Com Influenza Type A (ALEJANDRA) (Negative) Influenza Type B (ALEJANDRA) (Negative) Influenza A & B Note S. pyogenes GrpA ALEJANDRA (Negative) Discharge Plan Discharge Clinical Impression: Acute viral syndrome, Pharyngitis with viral syndrome Patient Disposition: Home, Self-Care Instructions: Pharyngitis (ED), Viral Syndrome (ED) Additional Instructions: Strep, influenza, and COVID swab came back negative. UA came back normal. Return to the ED for any chest pain, shortness of breath, coughing up blood, weakness, dizziness, inability tolerate solid food/liquids, abdominal pain, flank pain, dysuria, hematuria, or any other concerning symptoms. Prescriptions: No Action acetaminophen [Tylenol] 325 mg capsule 650 mg PO Q6H PRN (Reason: pain (scale score 4-6)) Qty: 30 2RF doxycycline hyclate 100 mg tablet 100 mg PO BID Qty: 20 0RF cyclobenzaprine 10 mg tablet 10 mg PO TID PRN (Reason: muscle spasm) Qty: 10 0RF ibuprofen 800 mg tablet 800 mg PO Q8H PRN (Reason: pain) Qty: 14 0RF prednisone 20 mg tablet 40 mg PO DAILY 5 Days Qty: 10 0RF lidocaine [Lidoderm] 5 % adhesive patch,medicated 1 patch topical DAILY Qty: 15 0RF Rx Instructions: leave on most painful area for up to 12 hrs ketorolac 10 mg tablet 10 mg PO TID 5 Days Qty: 15 0RF Stand Alone Forms: Work/School Release Interventions: ED Discharge Assessment Last Done: 10/13/21 16:32 Discharge Date/Time: 10/13/21 16:33 Print Language: Kiswahili
[2021-10-13 15:34] LABS: Appearance Urine CLEAR; Color Urine YELLOW; Glucose Urine UA NEG (NEG); Leukocyte Esterase Urine NEG (NEG); Nitrite Urine NEG (NEG); UACC Culture Trigger NO; Urine Blood TRACE (NEG); Urine Ketones NEG (NEG); Urine Protein NEG (NEG-TRACE)
[2021-10-13 15:35] LABS: UPreg QC Valid YES; Urine Pregnancy NEGATIVE (NEGATIVE)
[2021-10-13 15:41] LABS: Bacteria Urine 1+ /LPF; Mucus Urine TRACE /LPF; Squamous Epithelial Cell Urine 2+ /LPF; WBC Urine 0-2 /HPF (0-4)
[2021-10-13 16:32] VITALS: BP 111/73; PULSE 80; RESP 16; TEMP 36.9; O2SAT 96
== END 2021-10-13 16:33 | disposition home or self-care (01) ==
PROVIDERS: Physician Assistant; Emergency Provider Emergency Medicine
DX: J02.9 Acute pharyngitis, unspecified (principal); B34.9 Viral infection, unspecified; R50.9 Fever, unspecified; M54.50 Low back pain, unspecified; Z20.822 Contact with and (suspected) exposure to COVID-19; Z79.899 Other long term (current) drug therapy
CPT/HCPCS: 36415; 81001; 81025; 87502; 87635; 87651; 99283; 99284

== ENCOUNTER 2021-12-25 09:50 | Emergency (ER) | payer MEDICAID, SELFPAY ==
--- NOTE | ~2021-12-25 | XR_ITS ---
EXAMINATION: XR ANKLE, RIGHT CLINICAL INFORMATION: Twisting injury, pain. COMPARISON: None TECHNIQUE: AP, lateral, and mortise views of the right ankle. FINDINGS: No visible acute fracture or dislocation. Slight asymmetric of the ankle mortise may be related to positioning/projection. Talar dome appears intact. Base of the fifth metatarsal, anterior process of the calcaneus is intact. No significant tibiotalar joint effusion is identified. No abnormal soft tissue calcification. XR/XR ankle RT 2V IMPRESSION: No radiographically evident discrete acute fracture or dislocation.
[2021-12-25 10:12] VITALS: BP 116/70; PULSE 74; RESP 18; TEMP 36.2; O2SAT 97; BMI 32.3
--- NOTE | 2021-12-25 11:27 | ED.EXTPRO ---
HPI - Extremity Problem General Chief complaint: Extremity Problem Stated complaint: R Ankle Sprain Back Pain S/P Injury 12/23/21 Time Seen by Provider: 12/25/21 11:07 Source: patient Mode of arrival: ambulatory Limitations: no limitations History of Present Illness HPI Narrative: 36-year-old female here with reports of right ankle pain after twisting 2 days ago. Pain is worsened with weight-bearing. No redness, warmth, fevers, chills, numbness, tingling. Related Data Previous Rx's Medication Instructions Recorded cyclobenzaprine 10 mg tablet 10 mg PO TID PRN muscle spasm #10 05/23/20 tabs ibuprofen 800 mg tablet 800 mg PO Q8H PRN pain #14 tabs 05/23/20 lidocaine 5 % topical patch 1 patch topical DAILY pain #15 ea 05/23/20 (Lidoderm) prednisone 20 mg tablet 40 mg PO DAILY inflammation 5 05/23/20 days #10 tabs ketorolac 10 mg tablet 10 mg PO TID 5 days #15 tabs 04/22/21 acetaminophen 325 mg capsule 650 mg PO Q6H PRN pain (scale 06/03/21 (Tylenol) score 4-6) #30 caps doxycycline hyclate 100 mg tablet 100 mg PO BID Hidradenitis #20 06/04/21 tabs Allergies Allergy/AdvReac Type Severity Reaction Status Date / Time No Known Allergies Allergy Verified 06/06/21 10:28 Review of Systems Review of Systems: Yes all other systems are reviewed and are negative Constitutional: Constitutional: Reports no additional constitutional complaints, Denies body ache(s), Denies chills, Denies fever(s), Denies headache(s) and Denies weakness Eyes: Eyes: Reports no additional eye complaints and Denies change in vision ENT: Reports system reviewed and no additional complaints, except as documented, Denies dizziness, Denies headache(s), Denies nasal congestion, Denies nasal discharge and Denies neck pain Cardiovascular: Cardiovascular: Reports no additional cardiovascular complaints, Denies chest pain, Denies leg edema and Denies dyspnea Respiratory: Respiratory: Reports no additional respiratory complaints, Denies cough and Denies dyspnea Gastrointestinal: Gastrointestinal: Reports no additional gastrointestinal complaints, Denies abdominal pain, Denies diarrhea, Denies nausea and Denies vomiting Genitourinary: Genitourinary: Reports no additional female genitourinary complaints and Denies urinary incontinence Musculoskeletal: Musculoskeletal: Reports no additional musculoskeletal complaints, Denies back pain, Reports arthralgias, Reports joint swelling, Denies neck pain, Denies numbness and Denies tingling Integumentary/Breasts: Skin/Breast: Reports system reviewed and no additional complaints, except as docu and Denies rash Neurologic: Reports system reviewed and no additional complaints, except as documented, Denies Abnormal speech present, Denies dizziness, Denies headache(s), Denies numbness, Denies tingling and Denies weakness [facility] Past Medical History Attestation statement: The following information was validated with the patient. Source: old records reviewed and nursing notes reviewed Medical History COVID-19 Surgical History History of axillary surgery History of axillary surgery (~2020) Family History Family History Brother Leukemia Social History Social History Alcohol intake: never Patient Tobacco Use Status: Never used Tobacco Advance Directives: No Advance Directives Information Provided: No Physical Exam Vital Signs: Vital Signs: Last Vital Signs Temp 97.2 F 12/25/21 10:12 Pulse 74 12/25/21 10:12 Resp 18 12/25/21 10:12 BP 116/70 12/25/21 10:12 Pulse Ox 97 12/25/21 10:12 O2 Del Method 12/25/21 10:12 BMI result Body Mass Index 32.3 Const: General: cooperative, healthy appearing, comfortable and no acute distress Orientation/consciousness: patient oriented x3 Limitations: no limitations HEENT: Head: Yes normal to inspection Ears: hearing grossly normal bilaterally General nose exam: Normal external nose present Face and sinus: Yes normal facial exam Mouth: Normal oral and palatal mucosa present Throat: Yes posterior oropharynx normal Eyes: General: appearance normal, both eyes and all related structures Pupils: Equal, round and reactive pupils present Neck: Neck: Yes normal visual inspection Chest: Chest palpation & inspection: normal inspection of the chest Resp: Effort & Inspection: normal respiratory effort Auscultation: clear to auscultation bilaterally Cardio: Rate: regular rate Rhythm: regular rhythm Peripheral pulses: Peripheral pulses 2+ throughout GI: Inspection: Yes normal to inspection Palpation (GI): Soft to palpation and nontender Auscultation: normal bowel sounds Back/Spine/Pelvis: Thoracic/Lumbar Spine: thoracic and lumbar spine normal to inspection Skin: General skin exam: no rashes or lesions noted Neuro: General: patient oriented x3, no focal motor deficits and normal sensation to monofilament Cranial nerves: Yes Equal, round and reactive pupils present Cognition (Neuro): normal cognition Speech: No Abnormal speech present Gait exam (Neuro): Normal gait present Motor exam (neuro): 5/5 motor strength present throughout Extrem: Other: There is tenderness to the right lateral ankle there is full range of motion. There is no foot tenderness. There are palpable DP and but still pulses. There is no posterior ankle pain General: Yes normal to inspection Course Course Course Narrative: X-ray show no bony abnormality. Likely ankle sprain. Patient placed in air cast and given crutches for home. Reviewed rice. Reviewed worrisome signs and symptoms of when to return to the emergency department. Comfortable discharge home. MDM - Extremity (Nontraumatic) MDM Narrative Medical decision making narrative: 36-year-old female here with right ankle pain after twisting injury 2 days ago. Will check x-rays Medical Records Attestation: I reviewed the patient's medical records. Lab Data Attestation: I reviewed the patient's lab results. Imaging Data ankle xray: Attestation: I personally reviewed and interpreted this imaging study as follows: Radiologist's impression: Launch?Image [address] [address] XRay Report Signed Patient: Keli Tuttle MR#: [id number] : 1985 Acct:[id number] Age/Sex: 36 / F ADM Date: 12/25/21 Loc: .ED Attending Dr: Ordering Physician: Leah Thao DO Date of Service: 12/25/21 Procedure(s): XR ankle RT 2V Accession Number(s): [id number] cc: Leah Thao DO~ EXAMINATION: XR ANKLE, RIGHT CLINICAL INFORMATION: Twisting injury, pain.? COMPARISON: None? TECHNIQUE: AP, lateral, and mortise views of the right ankle. FINDINGS: No visible acute fracture or dislocation. Slight asymmetric of the ankle mortise may be related to positioning/projection. Talar dome appears intact. Base of the fifth metatarsal, anterior process of the calcaneus is intact. No significant tibiotalar joint effusion is identified. No abnormal soft tissue calcification.? XR/XR ankle RT 2V IMPRESSION: No radiographically evident discrete acute fracture or dislocation. Procedures Procedure Narrative Procedure Narrative: Aircast and crutches Discharge Plan Discharge Clinical Impression: Right ankle sprain Patient Disposition: Home, Self-Care Instructions: Ankle Sprain (ED) Additional Instructions: Ice, rest, elevation Use the Aircast and crutches until able to bear weight without experiencing pain Take Motrin or Tylenol for pain as needed Prescriptions: No Action acetaminophen [Tylenol] 325 mg capsule 650 mg PO Q6H PRN (Reason: pain (scale score 4-6)) Qty: 30 2RF doxycycline hyclate 100 mg tablet 100 mg PO BID Qty: 20 0RF cyclobenzaprine 10 mg tablet 10 mg PO TID PRN (Reason: muscle spasm) Qty: 10 0RF ibuprofen 800 mg tablet 800 mg PO Q8H PRN (Reason: pain) Qty: 14 0RF prednisone 20 mg tablet 40 mg PO DAILY 5 Days Qty: 10 0RF lidocaine [Lidoderm] 5 % adhesive patch,medicated 1 patch topical DAILY Qty: 15 0RF Rx Instructions: leave on most painful area for up to 12 hrs ketorolac 10 mg tablet 10 mg PO TID 5 Days Qty: 15 0RF Referrals: Physician,Unknown J [Primary Care Provider] - 1 week (For persistent symptoms) Stand Alone Forms: Work/School Release Interventions: ED Discharge Assessment Last Done: 12/25/21 12:44 Discharge Date/Time: 12/25/21 12:45
== END 2021-12-25 12:45 | disposition home or self-care (01) ==
PROVIDERS: Emergency Provider Emergency Medicine
DX: M25.571 Pain in right ankle and joints of right foot (principal)
CPT/HCPCS: 73600; 99283; 99284

== ENCOUNTER 2022-03-10 18:10 | Emergency (ER) | payer MEDICAID, SELFPAY ==
--- NOTE | ~2022-03-10 | XR_ITS ---
EXAMINATION: XR CHEST CLINICAL INFORMATION: Fall. COMPARISON: Chest x-ray 10/23/2020 TECHNIQUE: Frontal view of the chest was obtained. FINDINGS: No significant abnormality is noted involving the heart, lungs, mediastinum, bony thorax or soft tissues. XR/XR chest 1V IMPRESSION: Unremarkable examination.
--- NOTE | ~2022-03-10 | CT_ITS ---
EXAMINATION: CT HEAD WITHOUT CONTRAST CT CERVICAL SPINE WITHOUT CONTRAST CLINICAL INFORMATION: Nausea and vomiting. Headache. Neck pain. COMPARISON: None. TECHNIQUE: Imaging was performed from the skull base to vertex without intravenous administration of contrast. In addition, helical noncontrast CT imaging was acquired through the cervical spine and source images were reviewed along with axial reconstructions and sagittal and coronal MPRs. [This CT examination was performed using dose optimization techniques as appropriate, variously including the following: *Automated exposure control *Adjustment of mA and/or kV according to patient size (this includes techniques or standardized protocols for targeted exams where dose is matched to indication/reason for exam; i.e. extremities or head) *Use of iterative reconstruction technique] DLP: 1141 mGy-cm FINDINGS: HEAD: No intracranial mass, hemorrhage, or midline shift is visualized. The ventricles and sulci are proportional. No extra-axial collections are identified. The paranasal sinuses and mastoid air cells are well aerated. CERVICAL SPINE: There is no evidence of acute cervical spine fracture. Vertebral bodies remain normal in height. Cervical vertebrae have normal alignment. Minimal degenerative spurring of the endplates of the C4, C5 and C6 vertebrae. Facet joints are normal. No pre- or paravertebral soft tissue abnormality is identified. Limited assessment of the lung apices is unremarkable. CT/CT cervical spine wo IV con IMPRESSION: 1. No acute intracranial pathology. 2. No CT evidence of acute cervical spine fracture or traumatic subluxation
--- NOTE | ~2022-03-10 | CT_ITS ---
EXAMINATION: CT HEAD WITHOUT CONTRAST CT CERVICAL SPINE WITHOUT CONTRAST CLINICAL INFORMATION: Nausea and vomiting. Headache. Neck pain. COMPARISON: None. TECHNIQUE: Imaging was performed from the skull base to vertex without intravenous administration of contrast. In addition, helical noncontrast CT imaging was acquired through the cervical spine and source images were reviewed along with axial reconstructions and sagittal and coronal MPRs. [This CT examination was performed using dose optimization techniques as appropriate, variously including the following: *Automated exposure control *Adjustment of mA and/or kV according to patient size (this includes techniques or standardized protocols for targeted exams where dose is matched to indication/reason for exam; i.e. extremities or head) *Use of iterative reconstruction technique] DLP: 1141 mGy-cm FINDINGS: HEAD: No intracranial mass, hemorrhage, or midline shift is visualized. The ventricles and sulci are proportional. No extra-axial collections are identified. The paranasal sinuses and mastoid air cells are well aerated. CERVICAL SPINE: There is no evidence of acute cervical spine fracture. Vertebral bodies remain normal in height. Cervical vertebrae have normal alignment. Minimal degenerative spurring of the endplates of the C4, C5 and C6 vertebrae. Facet joints are normal. No pre- or paravertebral soft tissue abnormality is identified. Limited assessment of the lung apices is unremarkable. CT/CT head/brain wo IV con IMPRESSION: 1. No acute intracranial pathology. 2. No CT evidence of acute cervical spine fracture or traumatic subluxation
[2022-03-10 18:12] VITALS: BP 121/81; PULSE 77; RESP 18; TEMP 36.8; O2SAT 99; BMI 30.4
--- NOTE | 2022-03-10 22:16 | ED_ITS ---
HPI - Head Injury General Chief complaint: Head Injury Stated complaint: Light Headed S/P Injury 03/08/22 Time Seen by Provider: 03/10/22 22:14 Source: patient Mode of arrival: ambulatory Limitations: no limitations History of Present Illness HPI Narrative: This is a 36-year-old female history of asthma presenting to the emergency department with complaints of headache and neck pain status post hitting her head against a dresser on Thursday, 3 days ago. Patient tells me she woke up startled, rolled out of her bed falling out of her bed and hitting her head onto a dresser, she does not think she lost consciousness, she reports ever since then she has been having headaches, intermittent blurred vision, neck pain has been feeling extremely tired. Patient reports that she came in today because the symptoms are not going away on their own. She is not on blood thinners. Patient has associated complaints of nausea however no vomiting and complaints of intermittent lightheadedness. Denies chest pain, shortness of breath, fevers, chills. States vision is normal at the moment Related Data Previous Rx's Medication Instructions Recorded cyclobenzaprine 10 mg tablet 10 mg PO TID PRN muscle spasm #10 05/23/20 tabs ibuprofen 800 mg tablet 800 mg PO Q8H PRN pain #14 tabs 05/23/20 lidocaine 5 % topical patch 1 patch topical DAILY pain #15 ea 05/23/20 (Lidoderm) prednisone 20 mg tablet 40 mg PO DAILY inflammation 5 05/23/20 days #10 tabs ketorolac 10 mg tablet 10 mg PO TID 5 days #15 tabs 04/22/21 acetaminophen 325 mg capsule 650 mg PO Q6H PRN pain (scale 06/03/21 (Tylenol) score 4-6) #30 caps doxycycline hyclate 100 mg tablet 100 mg PO BID Hidradenitis #20 06/04/21 tabs cyclobenzaprine 10 mg tablet 10 mg PO BEDTIME PRN muscle spasm 03/10/22 #7 tabs lidocaine 5 % topical patch 1 patch topical DAILY PRN pain #15 03/10/22 ea Allergies Allergy/AdvReac Type Severity Reaction Status Date / Time No Known Allergies Allergy Verified 06/06/21 10:28 Review of Systems Review of Systems: Constitutional : No Weight loss, No Fever, No Chills, + Fatigue, + Malaise ENT/Mouth : No sore throat, No Rhinorrhea, + intermittent blurred vision Eyes: No Eye Pain, No Swelling, No Redness Cardiovascular : No Chest Pain, No SOB, No Dyspnea on Exertion, No Orthopnea, No Edema, No Palpitations Respiratory : No Cough, No Sputum, No Wheezing Gastrointestinal : + Nausea, No Vomiting, No Diarrhea, No Constipation, No abdominal Pain, No Hematochezia, No Melena Genitourinary : No Dysuria, No Urinary Frequency, No Hematuria, Musculoskeletal : No joint pain, No Myalgias, No Joint Swelling Skin : No Skin Lesions, No rash Neuro : No Weakness, No Numbness, + Dizziness, + Headache Psych : No Anxiety/Panic, No Depression All other systems reviewed and are negative Yes all other systems are reviewed and are negative [facility] Past Medical History Attestation statement: The following information was validated with the patient. Source: old records reviewed and nursing notes reviewed Medical History Asthma COVID-19 Surgical History History of appendectomy History of axillary surgery History of axillary surgery (~2020) Family History Family History Brother Leukemia Social History Social History Alcohol intake: never Patient Tobacco Use Status: Never used Tobacco Advance Directives: No Advance Directives Information Provided: No Physical Exam Vital Signs: Vital Signs: Last Vital Signs Temp 98.2 F 03/10/22 23:07 Pulse 64 03/10/22 23:07 Resp 16 03/10/22 23:07 BP 119/80 03/10/22 23:07 Pulse Ox 98 03/10/22 23:07 O2 Del Method 03/10/22 23:07 BMI result Body Mass Index 30.4 vss Appearance: Alert.? Oriented X3.? No acute distress.? Head: Normocephalic, atraumatic, no step-offs or deformities Eyes: Pupils equal, round and reactive to light.? Extraocular movements intact, no nystagmus. ENT: Pharynx normal.? Neck: Normal inspection.? Neck supple.? No meningeal signs. No midline tenderness. CVS: Normal heart rate and rhythm.? Pulses normal.? Respiratory: No respiratory distress.? Breath sounds normal.? Abdomen: Soft and nontender.? Skin: Skin warm and dry.? Normal skin color.? Normal skin turgor.? Extremities: No lower extremity edema.? No calf ttp. 5/5 strength to bilateral upper and lower extremities. Normal hand strength bilaterally. Back: No midline tenderness, no C-spine tenderness, full range of motion, no CVA tenderness bilaterally Neuro: Oriented X 3.? No motor deficit.? No sensory deficit. CN 2-12 intact . Patient ambulating with steady tandem gait, normal coordination. Normal rapid alternating movements, normal [id number], [id number]. Course Reevaluation(s) Reevaluation #1: CBC with no acute findings. Chemistry no acute electrolyte abnormalities requiring intervention. Beta-hCG negative. Coags within normal limits. UA without infection. COVID negative. Patient remains without nausea and vomiting, no blurred vision at this time, reports symptoms slightly improved with medication. At this time head CT and cervical spine CT pending. Time: 23:37 Reevaluation #2: Chest CT had no acute findings. Cervical spine CT and head CT is no acute findings, no signs of cervical spine fractures or dislocations or subluxations. Head CT in with no evidence of intracranial hemorrhage, no signs of stroke on exam. At this time patient will be discharged home, feeling better than she did when she arrived. Educated on post concussive syndrome and when to return. At this time I feel comfortable discharge. Time: 00:45 [facility] - Head Injury [facility] Narrative Medical decision making narrative: [id number] 36-year-old female presents with nausea, headache, neck pain status post hitting her head against a dresser on Thursday after rolling out of bed. Not on blood thinners. Physical examination benign. Unlikely ICH, cervical spine fracture. However, will obtain imaging to rule this out. Likely concussion. Unlikely post concussive syndrome. No meningeal signs on exam. Plan at this time is basic labs, imaging. Will give Lidoderm patch, cyclobenzaprine and Zofran for nausea. Medical Records Attestation: I reviewed the patient's medical records. Lab Data Attestation: I reviewed the patient's lab results. Result diagrams: 03/10/22 22:58 03/10/22 22:58 Labs: Lab Results 03/10/22 03/10/22 03/10/22 Range/Units 22:58 22:58 22:58 WBC 9.6 (4.8-10.8) X10*3/uL RBC 4.67 (4.20-5.50) X10*6/uL Hgb 11.9 L (12.0-16.0) g/dl Hct 37.5 (37.0-47.0) % MCV 80.3 (80.0-98.0) fL MCH 25.5 L (27.0-33.0) pg MCHC 31.7 (31.0-35.0) g/dl RDW 14.0 (11.0-16.0) % Plt Count 379 (160-400) X10*3/uL MPV 10.5 (9.4-12.3) fL Immature Gran % (Auto) 0.3 (0.0-0.4) % Neut % (Auto) 60.0 (45-73) % Lymph % (Auto) 32.6 (20-40) % [place] % (Auto) 4.5 (2-11) % Eos % (Auto) 1.9 (0-4) % Baso % (Auto) 0.7 (0-2) % Lymph # (Auto) 3.1 (1.2-4.9) X10*3/uL [place] # (Auto) 0.4 (0.1-1.2) X10*3/uL Eos # (Auto) 0.2 (0.0-0.4) X10*3/uL Baso # (Auto) 0.1 (0.0-0.2) X10*3/uL Abs Immat Gran (auto) 0.03 (0.00-0.03) X10*3/uL Absolute Neuts (auto) 5.8 (2.0-8.3) x10*3/uL Absolute Nucleated RBC 0.000 (0.0-0.012) X10*3/uL Nucleated RBC % (auto) 0.0 (0.0-0.2) /100WBC PT 11.0 (10.0-13.1) SEC INR 1.0 (0.9-1.1) Sodium 140 (135-145) mmol/L Potassium 3.7 (3.3-5.1) mmol/L Chloride 104 (96-108) mmol/L Carbon Dioxide 26 (22-29) mmol/L Anion Gap 14 (12-20) BUN 15 (9-16) mg/dL Creatinine 0.78 (0.5-1.4) mg/dL Estim Creat Clear Calc 111.0 Estimated GFR > 60 Random Glucose 96 (60-115) mg/dL Calcium 9.4 (8.4-10.2) mg/dL Magnesium 2.0 (1.6-2.6) mg/dL Total Bilirubin < 0.2 (0.0-1.0) mg/dL AST 17 (5-31) U/L ALT 22 (0-31) U/L Alkaline Phosphatase 84 (39-117) U/L Total Protein 8.3 H (6.5-8.0) g/dL Albumin 4.4 (3.5-5.0) g/dL Beta HCG, Quant < 2 mIU/mL Urine Color Urine Appearance Urine pH (5.0-9.0) Ur Specific [place] (1.005-1.025) Urine Protein (Neg-Trace) mg/dL Urine Glucose (UA) (Negative) mg/dL Urine Ketones (Negative) mg/dL Urine Blood (Negative) Urine Nitrite (Negative) Ur Leukocyte Esterase (Negative) Urine RBC (0-2) /HPF Urine WBC (0-5) /HPF Ur Squamous Epith Cells (0-2) /HPF Urine Bacteria (None Seen) Hyaline Casts (0-2) /LPF Urine Opiates Screen (Not Detect) Urine Fentanyl Screen (Not Detect) Ur Barbiturates Screen (Not Detect) Ur Phencyclidine Scrn (Not Detect) Ur Amphetamines Screen (Not Detect) U Benzodiazepines Scrn (Not Detect) Urine Cocaine Screen (Not Detect) U Marijuana (THC) Screen (Not Detect) COVID-19 (PHI) (Negative) COVID-19 Clin Com 03/10/22 03/10/22 03/10/22 Range/Units 22:58 23:11 23:11 WBC (4.8-10.8) X10*3/uL RBC (4.20-5.50) X10*6/uL Hgb (12.0-16.0) g/dl Hct (37.0-47.0) % MCV (80.0-98.0) fL MCH (27.0-33.0) pg MCHC (31.0-35.0) g/dl RDW (11.0-16.0) % Plt Count (160-400) X10*3/uL MPV (9.4-12.3) fL Immature Gran % (Auto) (0.0-0.4) % Neut % (Auto) (45-73) % Lymph % (Auto) (20-40) % [place] % (Auto) (2-11) % Eos % (Auto) (0-4) % Baso % (Auto) (0-2) % Lymph # (Auto) (1.2-4.9) X10*3/uL [place] # (Auto) (0.1-1.2) X10*3/uL Eos # (Auto) (0.0-0.4) X10*3/uL Baso # (Auto) (0.0-0.2) X10*3/uL Abs Immat Gran (auto) (0.00-0.03) X10*3/uL Absolute Neuts (auto) (2.0-8.3) x10*3/uL Absolute Nucleated RBC (0.0-0.012) X10*3/uL Nucleated RBC % (auto) (0.0-0.2) /100WBC PT (10.0-13.1) SEC INR (0.9-1.1) Sodium (135-145) mmol/L Potassium (3.3-5.1) mmol/L Chloride (96-108) mmol/L Carbon Dioxide (22-29) mmol/L Anion Gap (12-20) BUN (9-16) mg/dL Creatinine (0.5-1.4) mg/dL Estim Creat Clear Calc Estimated GFR Random Glucose (60-115) mg/dL Calcium (8.4-10.2) mg/dL Magnesium (1.6-2.6) mg/dL Total Bilirubin (0.0-1.0) mg/dL AST (5-31) U/L ALT (0-31) U/L Alkaline Phosphatase (39-117) U/L Total Protein (6.5-8.0) g/dL Albumin (3.5-5.0) g/dL Beta HCG, Quant mIU/mL Urine Color Yellow Urine Appearance Cloudy Urine pH 6.5 (5.0-9.0) Ur Specific [place] 1.025 (1.005-1.025) Urine Protein Trace (Neg-Trace) mg/dL Urine Glucose (UA) Negative (Negative) mg/dL Urine Ketones Negative (Negative) mg/dL Urine Blood Negative (Negative) Urine Nitrite Negative (Negative) Ur Leukocyte Esterase Trace H (Negative) Urine RBC 0-2 (0-2) /HPF Urine WBC 0-5 (0-5) /HPF Ur Squamous Epith Cells >20 (0-2) /HPF Urine Bacteria 4+ (None Seen) Hyaline Casts 0-2 (0-2) /LPF Urine Opiates Screen Not Detected (Not Detect) Urine Fentanyl Screen Not Detected (Not Detect) Ur Barbiturates Screen Not Detected (Not Detect) Ur Phencyclidine Scrn Not Detected (Not Detect) Ur Amphetamines Screen Not Detected (Not Detect) U Benzodiazepines Scrn Not Detected (Not Detect) Urine Cocaine Screen Not Detected (Not Detect) U Marijuana (THC) Screen Not Detected (Not Detect) COVID-19 (PHI) Negative (Negative) COVID-19 Clin Com See Note Critical Care Time Critical Care Time Critical Care Time: No Discharge Plan Discharge Clinical Impression: Concussion without loss of consciousness Patient Disposition: Home, Self-Care Instructions: Post Concussion Syndrome (ED) Additional Instructions: Take your medications as prescribed. If you were prescribed antibiotics today, it is important that you take your medication to their entirety, do not skip any doses, do not finish them early. Follow-up with your primary care provider this week. Return to the emergency department with new or worsening symptoms. Such as fevers, chills, chest pain, shortness of breath, nausea, vomiting, dizziness, headache, vision changes, lethargy In case of emergency call 911 Please limit screen time. We have discussed signs and symptoms of post concussive syndrome and I gave you a handout to read, if any of these arise please report immediately to the emergency department. You can take ibuprofen every 6 hours, Tylenol every 4 as needed for pain or discomfort. XR/XR chest 1V IMPRESSION: Unremarkable examination. CT/CT head/brain wo IV con IMPRESSION: 1. No acute intracranial pathology. 2. No CT evidence of acute cervical spine fracture or traumatic subluxation ? ? ? Prescriptions: New cyclobenzaprine 10 mg tablet 10 mg PO BEDTIME PRN (Reason: muscle spasm) Qty: 7 0RF lidocaine 5 % adhesive patch,medicated 1 patch topical DAILY PRN (Reason: pain) Qty: 15 0RF Rx Instructions: leave on most painful area for up to 12 hrs No Action acetaminophen [Tylenol] 325 mg capsule 650 mg PO Q6H PRN (Reason: pain (scale score 4-6)) Qty: 30 2RF doxycycline hyclate 100 mg tablet 100 mg PO BID Qty: 20 0RF cyclobenzaprine 10 mg tablet 10 mg PO TID PRN (Reason: muscle spasm) Qty: 10 0RF ibuprofen 800 mg tablet 800 mg PO Q8H PRN (Reason: pain) Qty: 14 0RF prednisone 20 mg tablet 40 mg PO DAILY 5 Days Qty: 10 0RF lidocaine [Lidoderm] 5 % adhesive patch,medicated 1 patch topical DAILY Qty: 15 0RF Rx Instructions: leave on most painful area for up to 12 hrs ketorolac 10 mg tablet 10 mg PO TID 5 Days Qty: 15 0RF Referrals: [facility] [Physician] - 2 days Stand Alone Forms: Work/School Release
[2022-03-10 23:03] LABS: MANUAL DIFF FLAG NO
[2022-03-10 23:04] LABS: Basophils Absolute Auto 0.1 X10*3/uL (0.0-0.2); Basophils Percent Auto 0.7 % (0-2); Eosinophils Absolute Auto 0.2 X10*3/uL (0.0-0.4); Eosinophils Percent Auto 1.9 % (0-4); Hematocrit 37.5 % (37.0-47.0); Hemoglobin 11.9 g/dl (12.0-16.0); Imm Gran Abs Auto 0.03 X10*3/uL (0.00-0.03); Imm Gran Pct Auto 0.3 % (0.0-0.4); Lymphocytes Absolute Auto 3.1 X10*3/uL (1.2-4.9); Lymphocytes Percent Auto 32.6 % (20-40); Mean Corpuscular HGB Conc 31.7 g/dl (31.0-35.0); Mean Corpuscular Hemoglobin 25.5 pg (27.0-33.0); Mean Corpuscular Volume 80.3 fL (80.0-98.0); Mean Platelet Volume 10.5 fL (9.4-12.3); Monocytes Absolute Auto 0.4 X10*3/uL (0.1-1.2); Monocytes Percent Auto 4.5 % (2-11); Neutrophils Absolute Auto 5.8 x10*3/uL (2.0-8.3); Platelet Count 379 X10*3/uL (160-400); Red Blood Count 4.67 X10*6/uL (4.20-5.50); White Blood Count 9.6 X10*3/uL (4.8-10.8)
[2022-03-10 23:07] VITALS: BP 119/80; PULSE 64; RESP 16; TEMP 36.8; O2SAT 98
[2022-03-10 23:19] LABS: COVID-19 Test Negative (Negative)
[2022-03-10 23:20] LABS: Appearance Urine Cloudy; Color Urine Yellow; Glucose Urine UA Negative (Negative); Leukocyte Esterase Urine Trace (Negative); Nitrite Urine Negative (Negative); PH 6.5 (5.0-9.0); Specific Gravity - Urine 1.025 (1.005-1.025); Urine Blood Negative (Negative); Urine Ketones Negative (Negative); Urine Protein Trace mg/dL (Neg-Trace)
[2022-03-10 23:20] LABS: Alanine Aminotransferase 22 U/L (0-31); Albumin Level 4.4 g/dL (3.5-5.0); Alkaline Phosphatase 84 U/L (39-117); Anion Gap 14 (12-20); Aspartate Amino Transferase 17 U/L (5-31); Bilirubin Total < 0.2 mg/dL (0.0-1.0); Blood Urea Nitrogen 15 mg/dL (9-16); Calcium 9.4 mg/dL (8.4-10.2); Carbon Dioxide 26 mmol/L (22-29); Chloride 104 mmol/L (96-108); Estimated Glomerular Filt Rate > 60; Glucose Random 96 mg/dL (60-115); Potassium 3.7 mmol/L (3.3-5.1); Sodium 140 mmol/L (135-145); Total Protein 8.3 g/dL (6.5-8.0)
[2022-03-10] MEDS: Lidocaine 4 % Patch ADH..PATCH 1 PATCH TRANSDERMA (23:20)
[2022-03-10] MEDS: Ondansetron ODT 4 MG TAB.RAPDIS TRANSLINGU (23:20)
[2022-03-10] MEDS: Cyclobenzaprine HCl 10 MG TABLET PO (23:20)
[2022-03-10 23:25] LABS: Bacteria Urine 4+ (None Seen); Hyaline Casts Urine 0-2 /LPF (0-2); RBC Urine 0-2 /HPF (0-2); Squamous Epithelial Cell Urine >20 /HPF (0-2); WBC Urine 0-5 /HPF (0-5)
[2022-03-10 23:26] LABS: HCG Quantitative < 2 mIU/mL
[2022-03-10 23:38] LABS: Amphetamine Screen Urine Not Detected (Not Detect); Barbiturates, Urine Not Detected (Not Detect); Benzodiazepines Screen Urine Not Detected (Not Detect); Cannabinoid Screen Urine Not Detected (Not Detect); Cocaine Screen Urine Not Detected (Not Detect); Fentanyl, urine Not Detected (Not Detect); Opiate Screen Urine Not Detected (Not Detect); Phencyclidine Screen Urine Not Detected (Not Detect)
[2022-03-11] MEDS: Ketorolac Tromethamine 15 MG/ML VIAL 30 MG IVPUSH (00:39)
[2022-03-11 00:59] VITALS: BP 119/84; PULSE 55; RESP 16; TEMP 36.8; O2SAT 98
== END 2022-03-11 01:31 | disposition home or self-care (01) ==
PROVIDERS: Physician Assistant; Emergency Provider Student in an Organized Health Care Education/Training Program
DX: S06.0X0A Concussion without loss of consciousness, initial encounter (principal); W06.XXXA Fall from bed, initial encounter; Z20.822 Contact with and (suspected) exposure to COVID-19; Y93.84 Activity, sleeping; Y92.032 Bedroom in apartment as the place of occurrence of the external cause; Y99.9 Unspecified external cause status; Z79.899 Other long term (current) drug therapy
CPT/HCPCS: 70450; 71045; 72125; 80053; 80307; 81001; 83735; 84702; 85025; 85610; 87635; 96374; 99284; J1885

== ENCOUNTER 2022-05-25 13:18 | Emergency (ER) | payer MEDICAID, SELFPAY ==
--- NOTE | ~2022-05-25 | XR_ITS ---
EXAMINATION: XR CHEST CLINICAL INFORMATION: Cough. COMPARISON: 03/10/2022 chest radiograph. TECHNIQUE: Frontal view of the chest was obtained. FINDINGS: No significant abnormality is noted involving the heart, lungs, mediastinum, bony thorax or soft tissues. XR/XR chest 1V IMPRESSION: No acute cardiopulmonary process.
--- NOTE | 2022-05-25 13:32 | ED.URI ---
HPI - URI/Sore Throat General Chief Complaint: Nausea/Vomiting/Diarrhea <FATOUMATA Sarmiento - Last Filed: 05/25/22 13:37> Stated Complaint: Vomiting/Headache/Chest tightness <FATOUMATA Sarmiento - Last Filed: 05/25/22 13:37> Time Seen by Provider: 05/25/22 16:20 <FATOUMATA Sarmiento - Last Filed: 05/25/22 13:37> Source: patient <Jamie Zuniga MD - Last Filed: 05/25/22 20:32> Mode of arrival: ambulatory <Jamie Zuniga MD - Last Filed: 05/25/22 20:32> Limitations: no limitations <Jamie Zuniga MD - Last Filed: 05/25/22 20:32> History of Present Illness HPI Narrative: Patient been feeling sick for last 4 days with headache occasional dry cough vomiting once or twice a day and diarrhea 3- 4 times since yesterday no fever no shortness of breath has mild hyper abdominal pain no urinary complaint <Jamie Zuniga MD - Last Filed: 05/25/22 20:32> Related Data Home Medications: Previous Rx's Medication Instructions Recorded cyclobenzaprine 10 mg tablet 10 mg PO TID PRN muscle spasm #10 05/23/20 tabs ibuprofen 800 mg tablet 800 mg PO Q8H PRN pain #14 tabs 05/23/20 lidocaine 5 % topical patch 1 patch topical DAILY pain #15 ea 05/23/20 (Lidoderm) prednisone 20 mg tablet 40 mg PO DAILY inflammation 5 05/23/20 days #10 tabs ketorolac 10 mg tablet 10 mg PO TID 5 days #15 tabs 04/22/21 acetaminophen 325 mg capsule 650 mg PO Q6H PRN pain (scale 06/03/21 (Tylenol) score 4-6) #30 caps doxycycline hyclate 100 mg tablet 100 mg PO BID Hidradenitis #20 06/04/21 tabs cyclobenzaprine 10 mg tablet 10 mg PO BEDTIME PRN muscle spasm 03/10/22 #7 tabs lidocaine 5 % topical patch 1 patch topical DAILY PRN pain #15 03/10/22 ea ondansetron 4 mg disintegrating 4 mg PO Q6-8H PRN nausea and 05/25/22 tablet vomiting #7 tabs <FATOUMATA Sarmiento - Last Filed: 05/25/22 13:37> Allergies/Adverse Reactions: Allergies Allergy/AdvReac Type Severity Reaction Status Date / Time No Known Allergies Allergy Verified 05/25/22 13:34 <FATOUMATA Sarmiento - Last Filed: 05/25/22 13:37> Review of Systems Review of Systems: Yes all other systems are reviewed and are negative <Jamie Zuniga MD - Last Filed: 05/25/22 20:32> [facility] Past Medical History Medical History: Medical History Asthma COVID-19 <FATOUMATA Sarmiento - Last Filed: 05/25/22 13:37> Surgical History: Surgical History History of appendectomy History of axillary surgery History of axillary surgery (~2020) <FATOUMATA Sarmiento - Last Filed: 05/25/22 13:37> Family History Family History: Family History Brother Leukemia <FATOUMATA Sarmiento - Last Filed: 05/25/22 13:37> Social History Social History: Social History Alcohol intake: never Patient Tobacco Use Status: Never used Tobacco Advance Directives: No Advance Directives Information Provided: Yes <FATOUMATA Sarmiento - Last Filed: 05/25/22 13:37> Physical Exam Vital Signs: Vital Signs: Last Vital Signs Temp 97.8 F 05/25/22 16:00 Pulse 75 05/25/22 16:00 Resp 16 05/25/22 16:00 BP 108/65 05/25/22 16:00 Pulse Ox 98 05/25/22 16:00 O2 Del Method 05/25/22 16:00 BMI result Body Mass Index 30.2 <FATOUMATA Sarmiento - Last Filed: 05/25/22 13:37> Vital Signs: Last Vital Signs Temp 97.8 F 05/25/22 16:00 Pulse 75 05/25/22 16:00 Resp 16 05/25/22 16:00 BP 108/65 05/25/22 16:00 Pulse Ox 98 05/25/22 16:00 O2 Del Method 05/25/22 16:00 BMI result Body Mass Index 30.2 <Jamie Zuniga MD - Last Filed: 05/25/22 20:32> Appearance: Alert. Oriented X3. No acute distress. Eyes: PERRLA, No Nystagmus ENT: Pharynx normal. Oral Mucosa moist Neck: Normal inspection. Neck supple. CVS: Normal heart rate and rhythm. Pulses normal. Respiratory: No respiratory distress. Equal air entry bilateral, no wheezing/rales/rhonchi Abdomen: Soft and nontender. Bowel sounds are present, no mass palpable, no CVA tenderness Skin: Skin warm and dry. Normal skin color. Normal skin turgor. Extremities: No lower extremity edema. No calf tenderness Neuro: Oriented X 3. <Jamie Zuniga MD - Last Filed: 05/25/22 20:32> Course Course Course Narrative: RME--36 year-old female with past medical history of asthma presenting to complaining of dry cough, chest tightness lower quadrant abdominal pain, nausea, and vomiting x4 days. LMP 05/06. Admits to fever on , resolved at present. Denies urinary symptoms. Abdomen soft with RLQ tenderness, no rebound or guarding. EKG, COVID-19/ influenza, CXR, CT AP, IVF, IV Zofran ordered in triage <FATOUMATA Sarmiento - Last Filed: 05/25/22 13:37> Medications Administered Discontinued Medications Generic Name Dose Route Start Last Admin Trade Name Freq PRN Reason Stop Dose Admin Sodium Chloride 1,000 mls @ 999 mls/hr 05/25/22 13:45 05/25/22 18:09 Ns IV 05/25/22 14:45 Infused .Q1H1M ELIDIA Infusion Ondansetron HCl 4 mg 05/25/22 13:32 05/25/22 16:22 Ondansetron Hcl 4 Mg/2 Ml Vial IVPUSH 05/25/22 13:33 4 mg ONCE ONE Administration <FATOUMATA Sarmiento - Last Filed: 05/25/22 13:37> Medications Administered Discontinued Medications Generic Name Dose Route Start Last Admin Trade Name Roman PRN Reason Stop Dose Admin Sodium Chloride 1,000 mls @ 999 mls/hr 05/25/22 13:45 05/25/22 18:09 Ns IV 05/25/22 14:45 Infused .Q1H1M ELIDIA Infusion Ondansetron HCl 4 mg 05/25/22 13:32 05/25/22 16:22 Ondansetron Hcl 4 Mg/2 Ml Vial IVPUSH 05/25/22 13:33 4 mg ONCE ONE Administration <Jamie Zuniga MD - Last Filed: 05/25/22 20:32> MDM - URI/Sore Throat Lab Data Attestation: I reviewed the patient's lab results. <Jamie Zuniga MD - Last Filed: 05/25/22 20:32> Result diagrams: : 05/25/22 15:16 05/25/22 15:16 <FATOUMATA Sarmiento - Last Filed: 05/25/22 13:37> Labs: Lab Results 05/25/22 05/25/22 05/25/22 Range/Units 15:16 15:16 15:16 WBC 5.5 (4.8-10.8) X10*3/uL RBC 5.02 (4.20-5.50) X10*6/uL Hgb 12.6 (12.0-16.0) g/dl Hct 40.5 (37.0-47.0) % MCV 80.7 (80.0-98.0) fL MCH 25.1 L (27.0-33.0) pg MCHC 31.1 (31.0-35.0) g/dl RDW 13.7 (11.0-16.0) % Plt Count 334 (160-400) X10*3/uL MPV 10.6 (9.4-12.3) fL Immature Gran % (Auto) 0.2 (0.0-0.4) % Neut % (Auto) 56.8 (45-73) % Lymph % (Auto) 31.6 (20-40) % [place] % (Auto) 8.0 (2-11) % Eos % (Auto) 2.7 (0-4) % Baso % (Auto) 0.7 (0-2) % Lymph # (Auto) 1.7 (1.2-4.9) X10*3/uL [place] # (Auto) 0.4 (0.1-1.2) X10*3/uL Eos # (Auto) 0.2 (0.0-0.4) X10*3/uL Baso # (Auto) 0.0 (0.0-0.2) X10*3/uL Abs Immat Gran (auto) 0.01 (0.00-0.03) X10*3/uL Absolute Neuts (auto) 3.1 (2.0-8.3) x10*3/uL Absolute Nucleated RBC 0.000 (0.0-0.012) X10*3/uL Nucleated RBC % (auto) 0.0 (0.0-0.2) /100WBC Sodium 140 (135-145) mmol/L Potassium 4.1 (3.3-5.1) mmol/L Chloride 106 (96-108) mmol/L Carbon Dioxide 28 (22-29) mmol/L Anion Gap 10 L (12-20) BUN 14 (9-16) mg/dL Creatinine 0.80 (0.5-1.4) mg/dL Estim Creat Clear Calc 107.7 Estimated GFR > 60 Random Glucose 94 (60-115) mg/dL Calcium 9.6 (8.4-10.2) mg/dL Magnesium 2.0 (1.6-2.6) mg/dL Total Bilirubin 0.2 (0.0-1.0) mg/dL Direct Bilirubin < 0.2 (0.0-0.5) mg/dL AST 20 (5-31) U/L ALT 23 (0-31) U/L Alkaline Phosphatase 73 (39-117) U/L Troponin I High Sens < 3.5 (<3.5-17.0) ng/L Total Protein 8.2 H (6.5-8.0) g/dL Albumin 4.5 (3.5-5.0) g/dL Lipase 21 (8-78) U/L Urine Color Urine Appearance Urine pH (5.0-9.0) Ur Specific [place] (1.005-1.025) Urine Protein (Neg-Trace) mg/dL Urine Glucose (UA) (Negative) mg/dL Urine Ketones (Negative) mg/dL Urine Blood (Negative) Urine Nitrite (Negative) Ur Leukocyte Esterase (Negative) Urine Test (NEGATIVE) COVID-19 (PHI) (Negative) COVID-19 Clin Com Influenza Type A (ALEJANDRA) (Negative) Influenza Type B (ALEJANDRA) (Negative) Influenza A & B Note 05/25/22 05/25/22 05/25/22 Range/Units 15:16 15:16 16:48 WBC (4.8-10.8) X10*3/uL RBC (4.20-5.50) X10*6/uL Hgb (12.0-16.0) g/dl Hct (37.0-47.0) % MCV (80.0-98.0) fL MCH (27.0-33.0) pg MCHC (31.0-35.0) g/dl RDW (11.0-16.0) % Plt Count (160-400) X10*3/uL MPV (9.4-12.3) fL Immature Gran % (Auto) (0.0-0.4) % Neut % (Auto) (45-73) % Lymph % (Auto) (20-40) % [place] % (Auto) (2-11) % Eos % (Auto) (0-4) % Baso % (Auto) (0-2) % Lymph # (Auto) (1.2-4.9) X10*3/uL [place] # (Auto) (0.1-1.2) X10*3/uL Eos # (Auto) (0.0-0.4) X10*3/uL Baso # (Auto) (0.0-0.2) X10*3/uL Abs Immat Gran (auto) (0.00-0.03) X10*3/uL Absolute Neuts (auto) (2.0-8.3) x10*3/uL Absolute Nucleated RBC (0.0-0.012) X10*3/uL Nucleated RBC % (auto) (0.0-0.2) /100WBC Sodium (135-145) mmol/L Potassium (3.3-5.1) mmol/L Chloride (96-108) mmol/L Carbon Dioxide (22-29) mmol/L Anion Gap (12-20) BUN (9-16) mg/dL Creatinine (0.5-1.4) mg/dL Estim Creat Clear Calc Estimated GFR Random Glucose (60-115) mg/dL Calcium (8.4-10.2) mg/dL Magnesium (1.6-2.6) mg/dL Total Bilirubin (0.0-1.0) mg/dL Direct Bilirubin (0.0-0.5) mg/dL AST (5-31) U/L ALT (0-31) U/L Alkaline Phosphatase (39-117) U/L Troponin I High Sens (<3.5-17.0) ng/L Total Protein (6.5-8.0) g/dL Albumin (3.5-5.0) g/dL Lipase (8-78) U/L Urine Color Yellow Urine Appearance Clear Urine pH 6.0 (5.0-9.0) Ur Specific [place] >= 1.030 H (1.005-1.025) Urine Protein Trace (Neg-Trace) mg/dL Urine Glucose (UA) Negative (Negative) mg/dL Urine Ketones Trace (Negative) mg/dL Urine Blood Negative (Negative) Urine Nitrite Negative (Negative) Ur Leukocyte Esterase Negative (Negative) Urine Test (NEGATIVE) COVID-19 (PHI) Negative (Negative) COVID-19 Clin Com See Note Influenza Type A (ALEJANDRA) Negative (Negative) Influenza Type B (ALEJANDRA) Negative (Negative) Influenza A & B Note See Note 05/25/22 Range/Units 16:48 WBC (4.8-10.8) X10*3/uL RBC (4.20-5.50) X10*6/uL Hgb (12.0-16.0) g/dl Hct (37.0-47.0) % MCV (80.0-98.0) fL MCH (27.0-33.0) pg MCHC (31.0-35.0) g/dl RDW (11.0-16.0) % Plt Count (160-400) X10*3/uL MPV (9.4-12.3) fL Immature Gran % (Auto) (0.0-0.4) % Neut % (Auto) (45-73) % Lymph % (Auto) (20-40) % [place] % (Auto) (2-11) % Eos % (Auto) (0-4) % Baso % (Auto) (0-2) % Lymph # (Auto) (1.2-4.9) X10*3/uL [place] # (Auto) (0.1-1.2) X10*3/uL Eos # (Auto) (0.0-0.4) X10*3/uL Baso # (Auto) (0.0-0.2) X10*3/uL Abs Immat Gran (auto) (0.00-0.03) X10*3/uL Absolute Neuts (auto) (2.0-8.3) x10*3/uL Absolute Nucleated RBC (0.0-0.012) X10*3/uL Nucleated RBC % (auto) (0.0-0.2) /100WBC Sodium (135-145) mmol/L Potassium (3.3-5.1) mmol/L Chloride (96-108) mmol/L Carbon Dioxide (22-29) mmol/L Anion Gap (12-20) BUN (9-16) mg/dL Creatinine (0.5-1.4) mg/dL Estim Creat Clear Calc Estimated GFR Random Glucose (60-115) mg/dL Calcium (8.4-10.2) mg/dL Magnesium (1.6-2.6) mg/dL Total Bilirubin (0.0-1.0) mg/dL Direct Bilirubin (0.0-0.5) mg/dL AST (5-31) U/L ALT (0-31) U/L Alkaline Phosphatase (39-117) U/L Troponin I High Sens (<3.5-17.0) ng/L Total Protein (6.5-8.0) g/dL Albumin (3.5-5.0) g/dL Lipase (8-78) U/L Urine Color Urine Appearance Urine pH (5.0-9.0) Ur Specific [place] (1.005-1.025) Urine Protein (Neg-Trace) mg/dL Urine Glucose (UA) (Negative) mg/dL Urine Ketones (Negative) mg/dL Urine Blood (Negative) Urine Nitrite (Negative) Ur Leukocyte Esterase (Negative) Urine Test NEGATIVE (NEGATIVE) COVID-19 (PHI) (Negative) COVID-19 Clin Com Influenza Type A (ALEJANDRA) (Negative) Influenza Type B (ALEJANDRA) (Negative) Influenza A & B Note <FATOUMATA Sarmiento - Last Filed: 05/25/22 13:37> Lab Results 05/25/22 05/25/22 05/25/22 Range/Units 15:16 15:16 15:16 WBC 5.5 (4.8-10.8) X10*3/uL RBC 5.02 (4.20-5.50) X10*6/uL Hgb 12.6 (12.0-16.0) g/dl Hct 40.5 (37.0-47.0) % MCV 80.7 (80.0-98.0) fL MCH 25.1 L (27.0-33.0) pg MCHC 31.1 (31.0-35.0) g/dl RDW 13.7 (11.0-16.0) % Plt Count 334 (160-400) X10*3/uL MPV 10.6 (9.4-12.3) fL Immature Gran % (Auto) 0.2 (0.0-0.4) % Neut % (Auto) 56.8 (45-73) % Lymph % (Auto) 31.6 (20-40) % [place] % (Auto) 8.0 (2-11) % Eos % (Auto) 2.7 (0-4) % Baso % (Auto) 0.7 (0-2) % Lymph # (Auto) 1.7 (1.2-4.9) X10*3/uL [place] # (Auto) 0.4 (0.1-1.2) X10*3/uL Eos # (Auto) 0.2 (0.0-0.4) X10*3/uL Baso # (Auto) 0.0 (0.0-0.2) X10*3/uL Abs Immat Gran (auto) 0.01 (0.00-0.03) X10*3/uL Absolute Neuts (auto) 3.1 (2.0-8.3) x10*3/uL Absolute Nucleated RBC 0.000 (0.0-0.012) X10*3/uL Nucleated RBC % (auto) 0.0 (0.0-0.2) /100WBC Sodium 140 (135-145) mmol/L Potassium 4.1 (3.3-5.1) mmol/L Chloride 106 (96-108) mmol/L Carbon Dioxide 28 (22-29) mmol/L Anion Gap 10 L (12-20) BUN 14 (9-16) mg/dL Creatinine 0.80 (0.5-1.4) mg/dL Estim Creat Clear Calc 107.7 Estimated GFR > 60 Random Glucose 94 (60-115) mg/dL Calcium 9.6 (8.4-10.2) mg/dL Magnesium 2.0 (1.6-2.6) mg/dL Total Bilirubin 0.2 (0.0-1.0) mg/dL Direct Bilirubin < 0.2 (0.0-0.5) mg/dL AST 20 (5-31) U/L ALT 23 (0-31) U/L Alkaline Phosphatase 73 (39-117) U/L Troponin I High Sens < 3.5 (<3.5-17.0) ng/L Total Protein 8.2 H (6.5-8.0) g/dL Albumin 4.5 (3.5-5.0) g/dL Lipase 21 (8-78) U/L Urine Color Urine Appearance Urine pH (5.0-9.0) Ur Specific [place] (1.005-1.025) Urine Protein (Neg-Trace) mg/dL Urine Glucose (UA) (Negative) mg/dL Urine Ketones (Negative) mg/dL Urine Blood (Negative) Urine Nitrite (Negative) Ur Leukocyte Esterase (Negative) Urine Test (NEGATIVE) COVID-19 (PHI) (Negative) COVID-19 Clin Com Influenza Type A (ALEJANDRA) (Negative) Influenza Type B (ALEJANDRA) (Negative) Influenza A & B Note 05/25/22 05/25/22 05/25/22 Range/Units 15:16 15:16 16:48 WBC (4.8-10.8) X10*3/uL RBC (4.20-5.50) X10*6/uL Hgb (12.0-16.0) g/dl Hct (37.0-47.0) % MCV (80.0-98.0) fL MCH (27.0-33.0) pg MCHC (31.0-35.0) g/dl RDW (11.0-16.0) % Plt Count (160-400) X10*3/uL MPV (9.4-12.3) fL Immature Gran % (Auto) (0.0-0.4) % Neut % (Auto) (45-73) % Lymph % (Auto) (20-40) % [place] % (Auto) (2-11) % Eos % (Auto) (0-4) % Baso % (Auto) (0-2) % Lymph # (Auto) (1.2-4.9) X10*3/uL [place] # (Auto) (0.1-1.2) X10*3/uL Eos # (Auto) (0.0-0.4) X10*3/uL Baso # (Auto) (0.0-0.2) X10*3/uL Abs Immat Gran (auto) (0.00-0.03) X10*3/uL Absolute Neuts (auto) (2.0-8.3) x10*3/uL Absolute Nucleated RBC (0.0-0.012) X10*3/uL Nucleated RBC % (auto) (0.0-0.2) /100WBC Sodium (135-145) mmol/L Potassium (3.3-5.1) mmol/L Chloride (96-108) mmol/L Carbon Dioxide (22-29) mmol/L Anion Gap (12-20) BUN (9-16) mg/dL Creatinine (0.5-1.4) mg/dL Estim Creat Clear Calc Estimated GFR Random Glucose (60-115) mg/dL Calcium (8.4-10.2) mg/dL Magnesium (1.6-2.6) mg/dL Total Bilirubin (0.0-1.0) mg/dL Direct Bilirubin (0.0-0.5) mg/dL AST (5-31) U/L ALT (0-31) U/L Alkaline Phosphatase (39-117) U/L Troponin I High Sens (<3.5-17.0) ng/L Total Protein (6.5-8.0) g/dL Albumin (3.5-5.0) g/dL Lipase (8-78) U/L Urine Color Yellow Urine Appearance Clear Urine pH 6.0 (5.0-9.0) Ur Specific [place] >= 1.030 H (1.005-1.025) Urine Protein Trace (Neg-Trace) mg/dL Urine Glucose (UA) Negative (Negative) mg/dL Urine Ketones Trace (Negative) mg/dL Urine Blood Negative (Negative) Urine Nitrite Negative (Negative) Ur Leukocyte Esterase Negative (Negative) Urine Test (NEGATIVE) COVID-19 (PHI) Negative (Negative) COVID-19 Clin Com See Note Influenza Type A (ALEJANDRA) Negative (Negative) Influenza Type B (ALEJANDRA) Negative (Negative) Influenza A & B Note See Note 05/25/22 Range/Units 16:48 WBC (4.8-10.8) X10*3/uL RBC (4.20-5.50) X10*6/uL Hgb (12.0-16.0) g/dl Hct (37.0-47.0) % MCV (80.0-98.0) fL MCH (27.0-33.0) pg MCHC (31.0-35.0) g/dl RDW (11.0-16.0) % Plt Count (160-400) X10*3/uL MPV (9.4-12.3) fL Immature Gran % (Auto) (0.0-0.4) % Neut % (Auto) (45-73) % Lymph % (Auto) (20-40) % [place] % (Auto) (2-11) % Eos % (Auto) (0-4) % Baso % (Auto) (0-2) % Lymph # (Auto) (1.2-4.9) X10*3/uL [place] # (Auto) (0.1-1.2) X10*3/uL Eos # (Auto) (0.0-0.4) X10*3/uL Baso # (Auto) (0.0-0.2) X10*3/uL Abs Immat Gran (auto) (0.00-0.03) X10*3/uL Absolute Neuts (auto) (2.0-8.3) x10*3/uL Absolute Nucleated RBC (0.0-0.012) X10*3/uL Nucleated RBC % (auto) (0.0-0.2) /100WBC Sodium (135-145) mmol/L Potassium (3.3-5.1) mmol/L Chloride (96-108) mmol/L Carbon Dioxide (22-29) mmol/L Anion Gap (12-20) BUN (9-16) mg/dL Creatinine (0.5-1.4) mg/dL Estim Creat Clear Calc Estimated GFR Random Glucose (60-115) mg/dL Calcium (8.4-10.2) mg/dL Magnesium (1.6-2.6) mg/dL Total Bilirubin (0.0-1.0) mg/dL Direct Bilirubin (0.0-0.5) mg/dL AST (5-31) U/L ALT (0-31) U/L Alkaline Phosphatase (39-117) U/L Troponin I High Sens (<3.5-17.0) ng/L Total Protein (6.5-8.0) g/dL Albumin (3.5-5.0) g/dL Lipase (8-78) U/L Urine Color Urine Appearance Urine pH (5.0-9.0) Ur Specific [place] (1.005-1.025) Urine Protein (Neg-Trace) mg/dL Urine Glucose (UA) (Negative) mg/dL Urine Ketones (Negative) mg/dL Urine Blood (Negative) Urine Nitrite (Negative) Ur Leukocyte Esterase (Negative) Urine Test NEGATIVE (NEGATIVE) COVID-19 (PHI) (Negative) COVID-19 Clin Com Influenza Type A (ALEJANDRA) (Negative) Influenza Type B (ALEJANDRA) (Negative) Influenza A & B Note <Jamie Zuniga MD - Last Filed: 05/25/22 20:32> Discharge Plan Discharge Clinical Impression: Gastroenteritis <FATOUMATA Sarmiento - Last Filed: 05/25/22 13:37> Patient Disposition: Home, Self-Care <FATOUMATA Sarmiento - Last Filed: 05/25/22 13:37> Instructions: Gastroenteritis (ED) <FATOUMATA Sarmiento - Last Filed: 05/25/22 13:37> Additional Instructions: Drink plenty of fluids Nausea medicine as prescribed Follow with PCP as needed <FATOUMATA Sarmiento - Last Filed: 05/25/22 13:37> Prescriptions: New ondansetron 4 mg tablet,disintegrating 4 mg PO Q6-8H PRN (Reason: nausea and vomiting) Qty: 7 0RF No Action acetaminophen [Tylenol] 325 mg capsule 650 mg PO Q6H PRN (Reason: pain (scale score 4-6)) Qty: 30 2RF doxycycline hyclate 100 mg tablet 100 mg PO BID Qty: 20 0RF cyclobenzaprine 10 mg tablet 10 mg PO TID PRN (Reason: muscle spasm) Qty: 10 0RF ibuprofen 800 mg tablet 800 mg PO Q8H PRN (Reason: pain) Qty: 14 0RF prednisone 20 mg tablet 40 mg PO DAILY 5 Days Qty: 10 0RF lidocaine [Lidoderm] 5 % adhesive patch,medicated 1 patch topical DAILY Qty: 15 0RF Rx Instructions: leave on most painful area for up to 12 hrs ketorolac 10 mg tablet 10 mg PO TID 5 Days Qty: 15 0RF cyclobenzaprine 10 mg tablet 10 mg PO BEDTIME PRN (Reason: muscle spasm) Qty: 7 0RF lidocaine 5 % adhesive patch,medicated 1 patch topical DAILY PRN (Reason: pain) Qty: 15 0RF Rx Instructions: leave on most painful area for up to 12 hrs <FATOUMATA Sarmiento - Last Filed: 05/25/22 13:37> Stand Alone Forms: Work/School Release <FATOUMATA Sarmiento - Last Filed: 05/25/22 13:37> Interventions: ED Discharge Assessment Last Done: 05/25/22 18:21 <FATOUMATA Sarmiento - Last Filed: 05/25/22 13:37> Discharge Date/Time: 05/25/22 18:22 <FATOUMATA Sarmiento - Last Filed: 05/25/22 13:37>
[2022-05-25 13:34] VITALS: BP 120/97; PULSE 75; RESP 16; TEMP 36.8; O2SAT 97; BMI 30.2
--- NOTE | 2022-05-25 13:34 | ECG_ITS ---
Test Reason : CHEST TIGHTNESS Blood Pressure : / mmHG Vent. Rate : 068 BPM Atrial Rate : 068 BPM P-R Int : 124 ms QRS Dur : 076 ms QT Int : 388 ms P-R-T Axes : 010 -13 -11 degrees QTc Int : 412 ms Normal sinus rhythm RSR' or QR pattern in V1 suggests right ventricular conduction delay Nonspecific T wave abnormality Anterolateral leads Abnormal ECG No previous ECGs available Referred By: Evelin Luna Electronically Signed By:SUSHANT PALUMBO MD
[2022-05-25 15:22] LABS: MANUAL DIFF FLAG NO
[2022-05-25 15:23] LABS: Basophils Percent Auto 0.7 % (0-2); Eosinophils Absolute Auto 0.2 X10*3/uL (0.0-0.4); Eosinophils Percent Auto 2.7 % (0-4); Hematocrit 40.5 % (37.0-47.0); Hemoglobin 12.6 g/dl (12.0-16.0); Imm Gran Abs Auto 0.01 X10*3/uL (0.00-0.03); Imm Gran Pct Auto 0.2 % (0.0-0.4); Lymphocytes Absolute Auto 1.7 X10*3/uL (1.2-4.9); Lymphocytes Percent Auto 31.6 % (20-40); Mean Corpuscular HGB Conc 31.1 g/dl (31.0-35.0); Mean Corpuscular Hemoglobin 25.1 pg (27.0-33.0); Mean Corpuscular Volume 80.7 fL (80.0-98.0); Mean Platelet Volume 10.6 fL (9.4-12.3); Monocytes Absolute Auto 0.4 X10*3/uL (0.1-1.2); Neutrophils Absolute Auto 3.1 x10*3/uL (2.0-8.3); Neutrophils Percent Auto 56.8 % (45-73); Platelet Count 334 X10*3/uL (160-400); Red Blood Count 5.02 X10*6/uL (4.20-5.50); Red Cell Distribution Width 13.7 % (11.0-16.0); White Blood Count 5.5 X10*3/uL (4.8-10.8)
[2022-05-25 15:38] LABS: COVID-19 Test Negative (Negative); IDNOW Serial# 16C4AD1C; IDNOW Serial# BCCEAD1C; Influenza A Negative (Negative); Influenza B2 Negative (Negative)
[2022-05-25 15:39] LABS: Alanine Aminotransferase 23 U/L (0-31); Albumin Level 4.5 g/dL (3.5-5.0); Alkaline Phosphatase 73 U/L (39-117); Anion Gap 10 (12-20); Aspartate Amino Transferase 20 U/L (5-31); Bilirubin Direct < 0.2 mg/dL (0.0-0.5); Bilirubin Total 0.2 mg/dL (0.0-1.0); Blood Urea Nitrogen 14 mg/dL (9-16); Calcium 9.6 mg/dL (8.4-10.2); Carbon Dioxide 28 mmol/L (22-29); Chloride 106 mmol/L (96-108); Creatinine Clr Calc Pharmacy 107.7; Estimated Glomerular Filt Rate > 60; Glucose Random 94 mg/dL (60-115); Lipase 21 U/L (8-78); Potassium 4.1 mmol/L (3.3-5.1); Sodium 140 mmol/L (135-145); Total Protein 8.2 g/dL (6.5-8.0)
[2022-05-25 15:46] LABS: Troponin-I High Sensitivity < 3.5 ng/L (<3.5-17.0)
[2022-05-25 16:00] VITALS: BP 108/65; PULSE 75; RESP 16; TEMP 36.6; O2SAT 98
[2022-05-25] MEDS: 0.9 % Sodium Chloride 1,000 ML 999 ML IV (16:21)
[2022-05-25] MEDS: ondansetron HCL 4 MG/2 ML VIAL IVPUSH (16:22)
[2022-05-25 16:58] LABS: Appearance Urine Clear; Color Urine Yellow; Glucose Urine UA Negative (Negative); Leukocyte Esterase Urine Negative (Negative); Nitrite Urine Negative (Negative); Specific Gravity - Urine >= 1.030 (1.005-1.025); Urine Blood Negative (Negative); Urine Ketones Trace mg/dL (Negative); Urine Protein Trace mg/dL (Neg-Trace)
[2022-05-25 17:00] LABS: UPreg QC Valid YES; Urine Pregnancy NEGATIVE (NEGATIVE)
== END 2022-05-25 18:22 | disposition home or self-care (01) ==
PROVIDERS: Physician Assistant; Emergency Provider Internal Medicine
DX: K52.9 Noninfective gastroenteritis and colitis, unspecified (principal); R07.89 Other chest pain; R11.2 Nausea with vomiting, unspecified; R51.9 Headache, unspecified; Z20.822 Contact with and (suspected) exposure to COVID-19; Z79.899 Other long term (current) drug therapy
CPT/HCPCS: 71045; 80048; 80076; 81003; 81025; 83690; 83735; 84484; 85025; 87502; 87635; 93005; 99284; J2405

== ENCOUNTER 2022-06-14 14:22 | Emergency (ER) | payer MEDICAID, SELFPAY ==
--- NOTE | ~2022-06-14 | XR_ITS ---
EXAMINATION: XR LUMBOSACRAL SPINE CLINICAL INFORMATION: Back pain. COMPARISON: CT abdomen pelvis 05/23/2020 TECHNIQUE: Three views of the lumbosacral spine. FINDINGS: The vertebral bodies and posterior elements are normal. The disc spaces are preserved and the vertebral alignment is normal. The paraspinal soft tissues are normal. XR/XR lumbar spine 2-3V IMPRESSION: Unremarkable examination.
--- NOTE | ~2022-06-14 | XR_ITS ---
EXAMINATION: XR THORACIC SPINE CLINICAL INFORMATION: Thoracic back pain status post heavy lifting. COMPARISON: None TECHNIQUE: 3 views of the thoracic spine were obtained. FINDINGS: Mild mid thoracic dextro scoliosis is seen. There is normal spinal alignment. The vertebral bodies and intervertebral disc spaces are unremarkable. The posterior ribs are intact. The soft tissues are unremarkable. XR/XR thoracic spine 3V IMPRESSION: Mild mid thoracic dextro scoliosis. No acute abnormality or significant degenerative changes.
[2022-06-14 14:27] VITALS: BP 110/67; PULSE 72; RESP 16; O2SAT 97; BMI 29.0
--- NOTE | 2022-06-14 14:27 | ED.BACK ---
HPI - Back Pain/Injury General Chief Complaint: Back Pain/Injury <FATOUMATA Purvis - Last Filed: 06/14/22 14:31> Stated Complaint: back inj at work <FATOUMATA Purvis - Last Filed: 06/14/22 14:31> Time Seen by Provider: 06/14/22 15:15 <FATOUMATA Purvis - Last Filed: 06/14/22 14:31> Source: patient <Sangita Palomo NP - Last Filed: 06/14/22 16:54> Mode of arrival: ambulatory <Sangita Palomo NP - Last Filed: 06/14/22 16:54> Limitations: no limitations <Sangita Palomo NP - Last Filed: 06/14/22 16:54> History of Present Illness HPI Narrative: 36-year-old female with a past medical history of asthma presents to the emergency department today, with her daughter, complaining of a low back strain 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 She states she has been having issues walking since the injury due to pain. She denies any loss bladder or bowel control however she does endorse new pelvic pressure after urinating. Rectal exam is deferred by patient. She denies any chest pain, shortness of breath, diarrhea, constipation, headache, or change of vision. She denies any recent illness, fever, chills. <Sangita Palomo NP - Last Filed: 06/14/22 16:54> MD elicited complaint: back pain and back injury <Sangita Palomo NP - Last Filed: 06/14/22 16:54> Onset (ago): day(s) (1) <Sangita Palomo NP - Last Filed: 06/14/22 16:54> Timing: constant <Sangita Palomo NP - Last Filed: 06/14/22 16:54> Severity: moderate <Sangita Palomo NP - Last Filed: 06/14/22 16:54> Pain scale (0-10): 6 <Sangita Palomo NP - Last Filed: 06/14/22 16:54> Similar Symptoms Previously: No <Sangita Palomo NP - Last Filed: 06/14/22 16:54> Quality: sharp <Sangita Palomo NP - Last Filed: 06/14/22 16:54> Location: lumbar spine and thoracic spine <Sangita Palomo NP - Last Filed: 06/14/22 16:54> Radiation: left upper leg and neck <Sangita Palomo NP - Last Filed: 06/14/22 16:54> Exacerbating factors: movement, supine positioning, sitting upright and walking <Sangita Palomo NP - Last Filed: 06/14/22 16:54> Relieving factors: none <Sangita Palomo NP - Last Filed: 06/14/22 16:54> Context: other (pushing/leaning) <Sangita Palomo NP - Last Filed: 06/14/22 16:54> Associated symptoms: denies other symptoms <Sangita Palomo NP - Last Filed: 06/14/22 16:54> Work related injury: Yes <Sangita Palomo NP - Last Filed: 06/14/22 16:54> Related Data Home Medications: Previous Rx's Medication Instructions Recorded cyclobenzaprine 10 mg tablet 10 mg PO TID PRN muscle spasm #10 05/23/20 tabs ibuprofen 800 mg tablet 800 mg PO Q8H PRN pain #14 tabs 05/23/20 lidocaine 5 % topical patch 1 patch topical DAILY pain #15 ea 05/23/20 (Lidoderm) prednisone 20 mg tablet 40 mg PO DAILY inflammation 5 05/23/20 days #10 tabs ketorolac 10 mg tablet 10 mg PO TID 5 days #15 tabs 04/22/21 acetaminophen 325 mg capsule 650 mg PO Q6H PRN pain (scale 06/03/21 (Tylenol) score 4-6) #30 caps doxycycline hyclate 100 mg tablet 100 mg PO BID Hidradenitis #20 06/04/21 tabs cyclobenzaprine 10 mg tablet 10 mg PO BEDTIME PRN muscle spasm 03/10/22 #7 tabs lidocaine 5 % topical patch 1 patch topical DAILY PRN pain #15 03/10/22 ea ondansetron 4 mg disintegrating 4 mg PO Q6-8H PRN nausea and 05/25/22 tablet vomiting #7 tabs cefuroxime axetil 500 mg tablet 500 mg PO BID 5 days #10 tabs 06/14/22 cyclobenzaprine 5 mg tablet 5 mg PO TID PRN muscle spasm #14 06/14/22 tabs lidocaine 4 % topical patch 1 patch topical TID PRN pain #10 ea 06/14/22 naproxen 500 mg tablet 500 mg PO BID PRN pain #30 tabs 06/14/22 <FATOUMATA Purvis Last Filed: 06/14/22 14:31> Allergies/Adverse Reactions: Allergies Allergy/AdvReac Type Severity Reaction Status Date / Time No Known Allergies Allergy Verified 05/25/22 13:34 <FATOUMATA Purvis Last Filed: 06/14/22 14:31> Review of Systems Review of Systems: In addition to documented HPI above, the additional ROS was obtained: Constitutional: No Weight loss, No Fever, No Chills ENT/Mouth: No Ear Pain, No Nasal Congestion, No Sinus Pain, No Hoarseness, No sore throat, No Rhinorrhea, No Swallowing Difficulty Cardiovascular: No Chest Pain, No SOB Respiratory: No Cough, No Sputum, No Wheezing Gastrointestinal: No Nausea, No Vomiting, No Diarrhea, No Constipation, No Abdominal pain Genitourinary: No Dysuria, No Urinary Frequency, No Hematuria, No Urinary Incontinence/retention, No Urgency, No Flank Pain Musculoskeletal: No joint pain, No Myalgias, No Joint Swelling Skin: No Skin Lesions, No rash Neuro: per HPI <Sangita Palomo NP - Last Filed: 06/14/22 16:54> Yes all other systems are reviewed and are negative <Sangita Palomo NP - Last Filed: 06/14/22 16:54> [facility] Past Medical History Attestation statement: The following information was validated with the patient. <LEONOR Brothers Last Filed: 06/14/22 16:54> Source: old records reviewed <LEONOR Brothers Last Filed: 06/14/22 16:54> Medical History: Medical History Asthma COVID-19 <FATOUMATA Purvis - Last Filed: 06/14/22 14:31> Surgical History: Surgical History History of appendectomy History of axillary surgery History of axillary surgery (~2020) <FATOUMATA Purvis - Last Filed: 06/14/22 14:31> Family History Family History: Family History Brother Leukemia <FATOMUATA Purvis - Last Filed: 06/14/22 14:31> Social History Social History: Social History Alcohol intake: never Patient Tobacco Use Status: Never used Tobacco Advance Directives: No Advance Directives Information Provided: No <FATOUMATA Purvis - Last Filed: 06/14/22 14:31> Physical Exam Vital Signs: Vital Signs: Last Vital Signs Pulse 72 06/14/22 14:27 Resp 16 06/14/22 14:27 BP 110/67 06/14/22 14:27 Pulse Ox 97 06/14/22 14:27 O2 Del Method 06/14/22 14:27 BMI result Body Mass Index 29.0 <FATOUMATA Purvis - Last Filed: 06/14/22 14:31> Vital Signs: Last Vital Signs Pulse 72 06/14/22 14:27 Resp 16 06/14/22 14:27 BP 110/67 06/14/22 14:27 Pulse Ox 97 06/14/22 14:27 O2 Del Method 06/14/22 14:27 BMI result Body Mass Index 29.0 <Sangita Palomo NP - Last Filed: 06/14/22 16:54> Const: General: cooperative, alert and awake <Sangita Palomo NP - Last Filed: 06/14/22 16:54> Nutritional Appearance: well nourished <Sangita Palomo SHIPBOARD INTELLIGENCE ANALYST - Last Filed: 06/14/22 16:54> Orientation/consciousness: patient oriented x3 <Sanigta Palomo SHIPBOARD INTELLIGENCE ANALYST - Last Filed: 06/14/22 16:54> Limitations: no limitations <Sangita Palomo SHIPBOARD INTELLIGENCE ANALYST - Last Filed: 06/14/22 16:54> HEENT: Head: Yes normal to inspection, Yes normocephalic and Yes atraumatic <Sangita Palomo SHIPBOARD INTELLIGENCE ANALYST - Last Filed: 06/14/22 16:54> Ears: hearing grossly normal bilaterally and external ears normal <Sangita Palomo SHIPBOARD INTELLIGENCE ANALYST - Last Filed: 06/14/22 16:54> General nose exam: Normal external nose present <Sangita Palomo SHIPBOARD INTELLIGENCE ANALYST - Last Filed: 06/14/22 16:54> Face and sinus: Yes normal facial exam <Sangita Palomo SHIPBOARD INTELLIGENCE ANALYST - Last Filed: 06/14/22 16:54> Eyes: General: appearance normal, both eyes and all related structures <Sangita Palomo SHIPBOARD INTELLIGENCE ANALYST - Last Filed: 06/14/22 16:54> Visual Plascencia: normal visual plascencia by confrontation <Sangita Palomo SHIPBOARD INTELLIGENCE ANALYST - Last Filed: 06/14/22 16:54> Alignment and Position: alignment normal <Sangita Palomo SHIPBOARD INTELLIGENCE ANALYST - Last Filed: 06/14/22 16:54> Periorbital: periorbital findings normal <Sangita Palomo SHIPBOARD INTELLIGENCE ANALYST - Last Filed: 06/14/22 16:54> Eyelids: Yes eyelids normal <Sangita Palomo SHIPBOARD INTELLIGENCE ANALYST - Last Filed: 06/14/22 16:54> Conjunctivae: conjunctivae normal <Sangita Palomo SHIPBOARD INTELLIGENCE ANALYST - Last Filed: 06/14/22 16:54> Sclerae: sclerae normal <Sangita Palomo SHIPBOARD INTELLIGENCE ANALYST - Last Filed: 06/14/22 16:54> Corneas: corneas normal <Sangita Palomo SHIPBOARD INTELLIGENCE ANALYST - Last Filed: 06/14/22 16:54> Pupils: Equal, round and reactive pupils present <Sangita Palomo SHIPBOARD INTELLIGENCE ANALYST - Last Filed: 06/14/22 16:54> EOM: EOMs intact bilaterally <Sangita Plucfuentesrussell, SHIPBOARD INTELLIGENCE ANALYST - Last Filed: 06/14/22 16:54> Neck: Neck: Yes normal visual inspection and Yes full ROM <Sangitabharat Palomo, SHIPBOARD INTELLIGENCE ANALYST - Last Filed: 06/14/22 16:54> Chest: Chest palpation & inspection: normal inspection of the chest <Sangita Palomo SHIPBOARD INTELLIGENCE ANALYST - Last Filed: 06/14/22 16:54> Resp: Effort & Inspection: normal respiratory effort, no cough and not labored <Sangitabharat Palomo, SHIPBOARD INTELLIGENCE ANALYST - Last Filed: 06/14/22 16:54> Auscultation: clear to auscultation bilaterally, no crackles, no rhonchi and no wheezes <Sangitaalena Palomo, SHIPBOARD INTELLIGENCE ANALYST - Last Filed: 06/14/22 16:54> Cardio: Rate: regular rate <Sangitaalena Palomo, SHIPBOARD INTELLIGENCE ANALYST - Last Filed: 06/14/22 16:54> Rhythm: regular rhythm <Sangitabharat Palomo, SHIPBOARD INTELLIGENCE ANALYST - Last Filed: 06/14/22 16:54> GI: Rectal Exam - Female: deferred <Sangitabharat Palomo, SHIPBOARD INTELLIGENCE ANALYST - Last Filed: 06/14/22 16:54> Back/Spine/Pelvis: Back: No erythema, No warmth and No ecchymosis <Sangitabharat Palomo, SHIPBOARD INTELLIGENCE ANALYST - Last Filed: 06/14/22 16:54> Cervical Spine: cervical ROM normal <Sangitabharat Palomo, SHIPBOARD INTELLIGENCE ANALYST - Last Filed: 06/14/22 16:54> Thoracic/Lumbar Spine: straight leg raise negative bilaterally, No kyphosis, pain with thoraco-lumbar ROM and No Thoracic/lumbar scoliosis <Sangitabharat Palomo, SHIPBOARD INTELLIGENCE ANALYST - Last Filed: 06/14/22 16:54> Skin: General skin exam: no rashes or lesions noted <Sangitaalena Palomo, SHIPBOARD INTELLIGENCE ANALYST - Last Filed: 06/14/22 16:54> Neuro: General: patient oriented x3, gait normal, tone normal and moves all extremities <Sangita Palomo SHIPBOARD INTELLIGENCE ANALYST - Last Filed: 06/14/22 16:54> Cranial nerves: Yes Equal, round and reactive pupils present <Sangita Palomo NP - Last Filed: 06/14/22 16:54> Cognition (Neuro): normal cognition <Sangita Palomo NP - Last Filed: 06/14/22 16:54> Gait exam (Neuro): Normal gait present <Sangita Palomo NP - Last Filed: 06/14/22 16:54> Motor exam (neuro): 5/5 motor strength present throughout <Sangita Palomo NP - Last Filed: 06/14/22 16:54> Extrem: General: Yes normal to inspection, Yes full ROM and Yes capillary refill normal <Sangita Palomo NP - Last Filed: 06/14/22 16:54> Course Course Course Narrative: 1427 36 year old female hx of asthma presents w/ work related injury complaining of thoracic and lumbar back pain X2 days. 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 Since then has had pain. Denies red flag sx. Ambulatory into triage w/ discomfort PE- ambulatory w/ slight discomfort Plan- xray <FATOUMATA Purvis - Last Filed: 06/14/22 14:31> Medications Administered Discontinued Medications Generic Name Dose Route Start Last Admin Trade Name Freq PRN Reason Stop Dose Admin Cefuroxime Axetil 500 mg 06/14/22 15:49 06/14/22 15:59 Cefuroxime Axetil 500 Mg Tablet PO 06/14/22 15:50 500 mg ONCE ONE Administration Ketorolac Tromethamine 15 mg 06/14/22 15:37 06/14/22 15:58 Ketorolac Tromethamine 15 Mg/Ml Vial IM 06/14/22 15:38 15 mg ONCE ONE Administration <FATOUMATA Purvis - Last Filed: 06/14/22 14:31> Medications Administered Discontinued Medications Generic Name Dose Route Start Last Admin Trade Name Freq PRN Reason Stop Dose Admin Cefuroxime Axetil 500 mg 06/14/22 15:49 06/14/22 15:59 Cefuroxime Axetil 500 Mg Tablet PO 06/14/22 15:50 500 mg ONCE ONE Administration Ketorolac Tromethamine 15 mg 06/14/22 15:37 06/14/22 15:58 Ketorolac Tromethamine 15 Mg/Ml Vial IM 06/14/22 15:38 15 mg ONCE ONE Administration <Sangita Palomo NP - Last Filed: 06/14/22 16:54> Medical Decision Making Medical Decision Making MDM Narrative: 36-year-old female with a past medical history of asthma presents to the emergency department today for 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 X-ray thoracic with no acute abnormality or significant degenerative changes. X-ray lumbar spine unremarkable. Urinalysis positive for urinary tract infection. Cefuroxime 500 mg started in the emergency department with plan to continue at home for 5 day course. On physical exam no step-offs or red flags noted. Low back pain consistent with muscle strain.? Low suspicion of cauda equina, epidural abscess, lumbar stenosis. Pt is safe for discharge with symptom management.? Prescriptions written for Flexeril, naproxen, and Lidocaine topical patches.? HPI, physical exam, plan discussed with patient and family with no unanswered questions at this time.?Educated to return to the emergency department with new numbness or weakness, loss of bladder or bowel function, inability to urinate, fever, chills, headache, vision changes, or any other concerning emergent symptoms.? Recommended follow-up with her primary care provider for further treatment and management. <Sangita Palomo NP - Last Filed: 06/14/22 16:54> Discharge Plan Discharge Clinical Impression: Urinary tract infection, Back pain <FATOUMATA Purvis - Last Filed: 06/14/22 14:31> Patient Disposition: Home, Self-Care <FATOUMATA Purvis - Last Filed: 06/14/22 14:31> Instructions: Urinary Tract Infection in Women (ED), Acute Low Back Pain (ED), Back Pain (ED) <FATOUMATA Purvis - Last Filed: 06/14/22 14:31> Additional Instructions: Your urinalysis is positive for a urinary tract infection. Antibiotics have been written for you for treatment of your UTI. Please complete course of antibiotics and take as directed. A muscle relaxer, lidocaine patches, and naproxen have been prescribed to you for your acute low back pain. Please take as directed. Please return to the emergency department with new numbness or weakness, loss of bladder or bowel function, inability to urinate, fever, chills, headache, vision changes, or any other concerning emergent symptoms. Recommended to follow-up the primary care for provider. <FATOUMATA Purvis - Last Filed: 06/14/22 14:31> Prescriptions: New cefuroxime axetil 500 mg tablet 500 mg PO BID 5 Days Qty: 10 0RF cyclobenzaprine 5 mg tablet 5 mg PO TID PRN (Reason: muscle spasm) Qty: 14 0RF naproxen 500 mg tablet 500 mg PO BID PRN (Reason: pain) Qty: 30 0RF lidocaine 4 % adhesive patch,medicated 1 patch topical TID PRN (Reason: pain) Qty: 10 0RF No Action acetaminophen [Tylenol] 325 mg capsule 650 mg PO Q6H PRN (Reason: pain (scale score 4-6)) Qty: 30 2RF doxycycline hyclate 100 mg tablet 100 mg PO BID Qty: 20 0RF cyclobenzaprine 10 mg tablet 10 mg PO TID PRN (Reason: muscle spasm) Qty: 10 0RF ibuprofen 800 mg tablet 800 mg PO Q8H PRN (Reason: pain) Qty: 14 0RF prednisone 20 mg tablet 40 mg PO DAILY 5 Days Qty: 10 0RF lidocaine [Lidoderm] 5 % adhesive patch,medicated 1 patch topical DAILY Qty: 15 0RF Rx Instructions: leave on most painful area for up to 12 hrs ketorolac 10 mg tablet 10 mg PO TID 5 Days Qty: 15 0RF cyclobenzaprine 10 mg tablet 10 mg PO BEDTIME PRN (Reason: muscle spasm) Qty: 7 0RF lidocaine 5 % adhesive patch,medicated 1 patch topical DAILY PRN (Reason: pain) Qty: 15 0RF Rx Instructions: leave on most painful area for up to 12 hrs ondansetron 4 mg tablet,disintegrating 4 mg PO Q6-8H PRN (Reason: nausea and vomiting) Qty: 7 0RF <FATOUMATA Purvis - Last Filed: 06/14/22 14:31> [place] [facility] [place] [facility] [place] Group] [facility] [Provider Group] <FATOUMATA Purvis - Last Filed: 06/14/22 14:31> Stand Alone Forms: Work/School Release <FATOUMATA Purvis - Last Filed: 06/14/22 14:31> Interventions: ED Discharge Assessment Last Done: 06/14/22 16:07 <FATOUMATA Purvis - Last Filed: 06/14/22 14:31> Discharge Date/Time: 06/14/22 16:09 <FATOUMATA Purvis - Last Filed: 06/14/22 14:31> Print Language: [place]ican <FATOUMATA Purvis - Last Filed: 06/14/22 14:31>
[2022-06-14 15:45] LABS: Appearance Urine Turbid; Color Urine Yellow; Glucose Urine UA Negative (Negative); Leukocyte Esterase Urine Large (3+) (Negative); Nitrite Urine Positive (Negative); UMIC TRIGGER UACC YES; Urine Blood Moderate (2+) (Negative); Urine Ketones Trace mg/dL (Negative); Urine Protein 300 (3+) mg/dL (Neg-Trace)
[2022-06-14] MEDS: Ketorolac Tromethamine 15 MG/ML VIAL IM (15:58)
[2022-06-14 16:02] LABS: Bacteria Urine 4+ (None Seen); RBC Urine >20 /HPF (0-2); UACC Culture Trigger YES; WBC Urine >50 /HPF (0-5)
== END 2022-06-14 16:09 | disposition home or self-care (01) ==
PROVIDERS: Nurse Practitioner Family; Emergency Provider Emergency Medicine
DX: N39.0 Urinary tract infection, site not specified (principal); M54.50 Low back pain, unspecified
CPT/HCPCS: 72072; 72100; 81001; 87086; 87088; 87186; 96372; 99283; 99284; J1885

== ENCOUNTER 2022-07-05 15:54 | Emergency (ER) | payer MEDICAID, SELFPAY ==
[2022-07-05 16:32] VITALS: BP 127/79; PULSE 102; RESP 16; TEMP 36.7; O2SAT 98; BMI 29.0
--- NOTE | 2022-07-05 16:32 | ED_ITS ---
HPI - General Adult General Chief complaint: Animal Bite Stated complaint: Dog bite Time Seen by Provider: 07/05/22 16:37 Source: patient Mode of arrival: ambulatory Limitations: no limitations History of Present Illness HPI narrative: Patient is a 37 year old assigned female at with a history of hidradenitis suppurativa presenting to the emergency department today with a dog bite to her left upper thigh. Patient states that her neighbors dog bit her left upper thigh. Patient states that her neighbor produced paperwork to confirm the dog is up to date on all shots. Patient states that she had a tetanus shot last year. Patient denies any dizziness, lightheadedness, abdominal pain, nausea, vomiting, fever, chills, blurry vision, double vision, loss of vision, chest pain, difficulty breathing, shortness of breath, back pain, night sweats, pain with urination, increased urinary frequency, increased urinary urgency, blood in her urine or stool, syncope or a near syncopal episode, bowel incontinence, bladder incontinence, bowel retention, bladder retention, or any other complaints at this time. Onset (ago): minute(s) Location: left and lower extremity Severity: mild Severity scale (1-10): 2 Relieving factors: none Exacerbating factors: none Associated symptoms: denies other symptoms Treatments prior to arrival: none Related Data Previous Rx's Medication Instructions Recorded cyclobenzaprine 10 mg tablet 10 mg PO TID PRN muscle spasm #10 05/23/20 tabs ibuprofen 800 mg tablet 800 mg PO Q8H PRN pain #14 tabs 05/23/20 lidocaine 5 % topical patch 1 patch topical DAILY pain #15 ea 05/23/20 (Lidoderm) prednisone 20 mg tablet 40 mg PO DAILY inflammation 5 05/23/20 days #10 tabs ketorolac 10 mg tablet 10 mg PO TID 5 days #15 tabs 04/22/21 acetaminophen 325 mg capsule 650 mg PO Q6H PRN pain (scale 06/03/21 (Tylenol) score 4-6) #30 caps doxycycline hyclate 100 mg tablet 100 mg PO BID Hidradenitis #20 06/04/21 tabs cyclobenzaprine 10 mg tablet 10 mg PO BEDTIME PRN muscle spasm 03/10/22 #7 tabs lidocaine 5 % topical patch 1 patch topical DAILY PRN pain #15 09/05/22 ea ondansetron 4 mg disintegrating 4 mg PO Q6-8H PRN nausea and 05/25/22 tablet vomiting #7 tabs cefuroxime axetil 500 mg tablet 500 mg PO BID 5 days #10 tabs 06/14/22 cyclobenzaprine 5 mg tablet 5 mg PO TID PRN muscle spasm #14 06/14/22 tabs lidocaine 4 % topical patch 1 patch topical TID PRN pain #10 ea 06/14/22 naproxen 500 mg tablet 500 mg PO BID PRN pain #30 tabs 06/14/22 amoxicillin 875 mg-potassium 1 tab PO BID 7 days #14 tabs 07/05/22 clavulanate 125 mg tablet amoxicillin 875 mg-potassium 1 tab PO BID dog bite 10 days #20 07/07/22 clavulanate 125 mg tablet tabs Allergies Allergy/AdvReac Type Severity Reaction Status Date / Time No Known Allergies Allergy Verified 07/05/22 16:32 Review of Systems Constitutional: Constitutional: Reports no additional constitutional complaints, Denies chills, Denies fever(s) and Denies night sweats Eyes: Eyes: Reports no additional eye complaints, Denies blurry vision, Denies change in vision, Denies diplopia, Denies eye discharge, Denies loss of vision and Denies eye pain ENT: Denies dizziness Cardiovascular: Cardiovascular: Reports no additional cardiovascular complaints, Denies chest pain, Denies lightheadedness, Denies Loss of Consciousness and Denies dyspnea Respiratory: Respiratory: Reports no additional respiratory complaints and Denies dyspnea Gastrointestinal: Gastrointestinal: Reports no additional gastrointestinal complaints, Denies abdominal pain, Denies melena, Denies hematochezia, Denies change in bowel habits and Denies change in stool character Genitourinary: Genitourinary: Denies hematuria, Denies urinary frequency, Denies dysuria, Denies urinary incontinence, Denies urinary hesitancy and Denies urinary urgency Musculoskeletal: Musculoskeletal: Reports no additional musculoskeletal complaints, Denies numbness and Denies tingling Integumentary/Breasts: Comments: dog bite to the left upper thigh Neurologic: Denies dizziness, Denies loss of vision, Denies numbness and Denies tingling Psychiatric: Psychiatric: Reports no additional psychiatric complaints Endocrine: Endocrine: Reports no additional endocrine complaints Hematologic/Lymphatic: Hematologic/Lymphatic: Reports no additional hematologic/lymphatic complaints Allergic/Immunologic: Allergic/Immunologic: Reports no additional allergic/immunologic complaints [facility] Past Medical History Attestation statement: The following information was validated with the patient. Source: old records reviewed and nursing notes reviewed Medical History Asthma COVID-19 Surgical History History of appendectomy History of axillary surgery History of axillary surgery (~2020) Family History Family History Brother Leukemia Social History Social History Alcohol intake: never Patient Tobacco Use Status: Never used Tobacco Advance Directives: No Advance Directives Information Provided: No Physical Exam ED Vital Signs: Vital Signs - 24 hr 07/05/22 16:32 Temperature 98.0 F Pulse Rate 102 H Respiratory Rate 16 Blood Pressure 127/79 Pulse Oximetry 98 Oxygen Delivery Method Room Air BMI result Body Mass Index 29.0 Const General: cooperative, no acute distress, alert and awake Nutritional Appearance: well nourished Orientation/consciousness: patient oriented x3 Limitations: no limitations HENMT Head: Yes normal to inspection and Yes atraumatic Ears: hearing grossly normal bilaterally and external ears normal General nose exam: Normal external nose present, no nasal discharge noted and no epistaxis Face and sinus: Yes normal facial exam, No abrasion and No laceration Mouth: Normal oral and palatal mucosa present, no drooling and no muffled voice Eyes General: appearance normal, both eyes and all related structures Periorbital: periorbital findings normal Eyelids: Yes eyelids normal Conjunctivae: conjunctivae normal Pupils: Equal, round and reactive pupils present EOM: EOMs intact bilaterally Neck Neck: Yes normal visual inspection, Yes full ROM and Yes no lymphadenopathy Chest Chest palpation & inspection: normal inspection of the chest Resp Effort & Inspection: normal respiratory effort and able to speak in complete sentences Auscultation: clear to auscultation bilaterally Cardio Rate: regular rate Rhythm: regular rhythm GI Inspection: Yes normal to inspection Palpation (GI): Soft to palpation, not firm, nontender, no guarding and not r igid Skin Other: small laceration to the left upper thigh - no active bleeding, no gaping areas Neuro General: patient oriented x3 and moves all extremities Cranial nerves: Yes Equal, round and reactive pupils present Cognition (Neuro): normal cognition Motor exam (neuro): 5/5 motor strength present throughout Sensory Exam: Normal double simultaneous stimulation for sensation Coordination: [id number] test normal Extrem General: Yes full ROM and Yes capillary refill normal Psych Appearance: grossly normal Mental Status: mental status grossly normal Affect: normal affect Attitude: cooperative Thought process: Normal thought process present Thought content: Normal thought content present Insight: Good insight present (Psych) Medical Decision Making Medical Decision Making MDM Narrative: Patient is a 37 year old assigned female at with a history of hidradenitis suppurativa presenting to the emergency department today with a dog bite to the left upper thigh. Patient's physical exam showed a small and superficial laceration to the left upper thigh but was otherwise unremarkable. I explained my physical exam findings to the patient. I answered all questions asked by the patient. I stressed the importance of the patient taking her medication as prescribed. I stressed the importance of the patient following up with her primary care provider. I stressed the importance of the patient returning to the emergency department immediately if her symptoms were to worsen or if she were to develop any dizziness, shortness of breath, difficulty breathing, chest pain, blurry vision, loss of vision, nausea, vomiting, abdominal pain, fever, chills, back pain, or any other complaints. Patient verbalized agreement and understanding with this treatment plan and discharge. Differential Diagnosis Differential Diagnoses: The differential diagnosis associated with the presentation includes dog bite, laceration Discharge Plan Discharge Clinical Impression: Dog bite Patient Disposition: Home, Self-Care Instructions: Animal Bite (ED) Additional Instructions: Follow up with your primary care provider. Return to the emergency department immediately if your symptoms worsen or if you develop any dizziness, shortness of breath, difficulty breathing, chest pain, blurry vision, loss of vision, nausea, vomiting, abdominal pain, fever, chills, back pain, or any other complaints. Prescriptions: New amoxicillin-pot clavulanate 875-125 mg tablet 1 tab PO BID 7 Days Qty: 14 0RF No Action acetaminophen [Tylenol] 325 mg capsule 650 mg PO Q6H PRN (Reason: pain (scale score 4-6)) Qty: 30 2RF doxycycline hyclate 100 mg tablet 100 mg PO BID Qty: 20 0RF cyclobenzaprine 10 mg tablet 10 mg PO TID PRN (Reason: muscle spasm) Qty: 10 0RF ibuprofen 800 mg tablet 800 mg PO Q8H PRN (Reason: pain) Qty: 14 0RF prednisone 20 mg tablet 40 mg PO DAILY 5 Days Qty: 10 0RF lidocaine [Lidoderm] 5 % adhesive patch,medicated 1 patch topical DAILY Qty: 15 0RF Rx Instructions: leave on most painful area for up to 12 hrs ketorolac 10 mg tablet 10 mg PO TID 5 Days Qty: 15 0RF cyclobenzaprine 10 mg tablet 10 mg PO BEDTIME PRN (Reason: muscle spasm) Qty: 7 0RF lidocaine 5 % adhesive patch,medicated 1 patch topical DAILY PRN (Reason: pain) Qty: 15 0RF Rx Instructions: leave on most painful area for up to 12 hrs ondansetron 4 mg tablet,disintegrating 4 mg PO Q6-8H PRN (Reason: nausea and vomiting) Qty: 7 0RF cefuroxime axetil 500 mg tablet 500 mg PO BID 5 Days Qty: 10 0RF cyclobenzaprine 5 mg tablet 5 mg PO TID PRN (Reason: muscle spasm) Qty: 14 0RF naproxen 500 mg tablet 500 mg PO BID PRN (Reason: pain) Qty: 30 0RF lidocaine 4 % adhesive patch,medicated 1 patch topical TID PRN (Reason: pain) Qty: 10 0RF amoxicillin-pot clavulanate 875-125 mg tablet 1 tab PO BID 10 Days Qty: 20 0RF Referrals: [facility] Family Medicine [Provider Group] (Call to establish and follow up with a primary care provider. If you already have a primary care provider, please follow up with them. ) [facility] Primary CareTheresa [Provider Group] (Call to establish and follow up with a primary care provider. If you already have a primary care provider, please follow up with them. ) [facility] Primary CareYasmin [Provider Group] (Call to establish and follow up with a primary care provider. If you already have a primary care provider, please follow up with them. ) Stand Alone Forms: Work/School Release Interventions: ED Discharge Assessment Last Done: 07/05/22 16:38 Discharge Date/Time: 07/05/22 16:46 Print Language: Occitan
--- OUTSIDE RECORDS SUMMARY | 2022-07-05 16:42 | XMS_ITS | Continuity of Care Document ---
:1985 Author Organization [facility] Address [address] [place] [id number]- Care Team Providers Name Role Phone Chinyere PRUITT, Adin Montague Primary Care Physician Encounter [facility] Date(s): 08/10/19 - 08/10/[address] [address]- [facility] Attending Physician: Angelia Moore
== END 2022-07-05 16:46 | disposition home or self-care (01) ==
LOC: HO.ED 16:40
PROVIDERS: Emergency Provider Emergency Medicine
DX: S70.372A Other superficial bite of left thigh, initial encounter (principal); W54.0XXA Bitten by dog, initial encounter; Y93.9 Activity, unspecified; Y92.480 Sidewalk as the place of occurrence of the external cause; Y99.9 Unspecified external cause status
CPT/HCPCS: 99282; 99283

== ENCOUNTER 2022-07-07 10:45 | Emergency (ER) | payer MEDICAID, SELFPAY ==
[2022-07-07 11:17] VITALS: BP 117/81; PULSE 70; RESP 16; TEMP 36.4; O2SAT 98; BMI 29.0
--- NOTE | 2022-07-07 11:17 | ED.RECABL ---
HPI - Recheck/Abnormal Lab/Rx General Chief Complaint: Wound/Laceration Stated Complaint: follow dog bite Time Seen by Provider: 07/07/22 11:26 Source: patient Mode of arrival: ambulatory Limitations: no limitations History of Present Illness HPI narrative: 37-year-old female presenting to the ER for wound recheck after she was seen here on 07/05/2022 for a dog bite to her left buttock/thigh area. She was sent home with Augmentin although she has not actually started due to the pharmacy has been close at [facility] and she reports that she did not think about calling us to change pharmacy. She denies any new symptoms related to this. She reports she is up-to-date on tetanus. She has not been in contact with animal control she is unsure if the dog is up-to-date on rabies although reports that if we give her the information she can call today. She denies any other symptoms complaints or concerns at this time. MD complaint: wound re-check Initial visit (ago): day(s) (3) Initial visit for: animal bite Returns today for: wound recheck Symptoms since prior visit: no new symptoms Context: other (Has not been able to picker and sorter load and unload her antibiotic) Associated symptoms: none Related Data Previous Rx's Medication Instructions Recorded cyclobenzaprine 10 mg tablet 10 mg PO TID PRN muscle spasm #10 05/23/20 tabs ibuprofen 800 mg tablet 800 mg PO Q8H PRN pain #14 tabs 05/23/20 lidocaine 5 % topical patch 1 patch topical DAILY pain #15 ea 05/23/20 (Lidoderm) prednisone 20 mg tablet 40 mg PO DAILY inflammation 5 05/23/20 days #10 tabs ketorolac 10 mg tablet 10 mg PO TID 5 days #15 tabs 04/22/21 acetaminophen 325 mg capsule 650 mg PO Q6H PRN pain (scale 06/03/21 (Tylenol) score 4-6) #30 caps doxycycline hyclate 100 mg tablet 100 mg PO BID Hidradenitis #20 06/04/21 tabs cyclobenzaprine 10 mg tablet 10 mg PO BEDTIME PRN muscle spasm 03/10/22 #7 tabs lidocaine 5 % topical patch 1 patch topical DAILY PRN pain #15 03/10/22 ea ondansetron 4 mg disintegrating 4 mg PO Q6-8H PRN nausea and 05/25/22 tablet vomiting #7 tabs cefuroxime axetil 500 mg tablet 500 mg PO BID 5 days #10 tabs 06/14/22 cyclobenzaprine 5 mg tablet 5 mg PO TID PRN muscle spasm #14 06/14/22 tabs lidocaine 4 % topical patch 1 patch topical TID PRN pain #10 ea 06/14/22 naproxen 500 mg tablet 500 mg PO BID PRN pain #30 tabs 06/14/22 amoxicillin 875 mg-potassium 1 tab PO BID 7 days #14 tabs 07/05/22 clavulanate 125 mg tablet amoxicillin 875 mg-potassium 1 tab PO BID dog bite 10 days #20 07/07/22 clavulanate 125 mg tablet tabs Allergies Allergy/AdvReac Type Severity Reaction Status Date / Time No Known Allergies Allergy Verified 07/05/22 16:32 Review of Systems Review of Systems: Constitutional : Denies history of same, Denies any other sites involved, Denies IV drug use, Denies history of MRSA, Denies swollen glands, Denies injury, Denies Fever, Denies Chills, NO Sig Pain, Denies Systemic symptoms Cardiovascular : No Chest Pain, No SOB Respiratory : No Dyspnea Gastrointestinal : No abdominal pain Musculoskeletal : No Joint Swelling Skin : + DOG BITE WOUNDS TO LEFT BUTTOCK/THIGH AREA, no abscess, No surrounding erythema, No skin laceration, No Foreign bodies, No spreading rash, Denies any new bites, Denies discharge, Neuro : No Weakness, No Numbness/tingling Psych : No SI/HI/thoughts of self injury Yes all other systems are reviewed and are negative [facility] Past Medical History Attestation statement: The following information was validated with the patient. Source: old records reviewed and nursing notes reviewed Medical History Asthma COVID-19 Surgical History History of appendectomy History of axillary surgery History of axillary surgery (~2020) Family History Family History Brother Leukemia Social History Social History Alcohol intake: never Patient Tobacco Use Status: Never used Tobacco Advance Directives: No Advance Directives Information Provided: No Physical Exam Vital Signs: Vital Signs: Last Vital Signs Temp 97.6 F 07/07/22 11:17 Pulse 70 07/07/22 11:17 Resp 16 07/07/22 11:17 BP 117/81 07/07/22 11:17 Pulse Ox 98 07/07/22 11:17 O2 Del Method 07/07/22 11:17 BMI result Body Mass Index 29.0 vital signs have been reviewed as normal and appeared to be correct. Blood pressure normal Heart rate normal. Respiration rate normal. Temperature normal. Oxygen saturation normal. Appearance: Alert. Oriented X3. No acute distress. Head: Normal external exam. Normocephalic. Atraumatic. Eyes: PERRLA. EOMI. Conjunctiva and sclera normal. Eyelids normal. ENT: Pharynx normal. Uvula midline. Moist mucous membranes. Neck: Normal inspection. Neck supple. FROM. CVS: Normal heart rate and rhythm. Respiratory: No respiratory distress. Painless inspiration. Skin: Skin warm and dry. Normal skin color. Normal skin turgor. Patient well healing dog bite wounds to left buttock/thigh. No surrounding erythema only soft tissue swelling and ecchymosis noted. No purulent drainage or streaking noted. No addition rashes/lesions/lacerations noted. Extremities: No lower extremity edema. Extremities exhibit normal range of motion. Extremities nontender. Neuro: Oriented X 3. No motor deficit. No sensory deficit. Reflexes normal. Normal steady gait. No focal neuro deficits noted. Vascular: + radial pulses/+ 2 distal pedal pulses/+2 dorsalis pedis b/l. Normal cap refill. No cyanosis noted to upper extremity nails and lower extremity toes nails. Course Course Course Narrative: Therefore at this time no additional labs or imaging indicated at this time. Vital signs are stable. No streaking is noted. No signs of abscess noted. Patient will be discharged with a new antibiotic sent to a new pharmacy and instructions return if any new or worsening symptoms and to call us if she cannot fill the prescription. She will also call animal control today I gave her information. She understands agrees with this plan. Discharge Plan Discharge Clinical Impression: Dog bite Patient Disposition: Home, Self-Care Instructions: Animal Bite (ED) Prescriptions: New amoxicillin-pot clavulanate 875-125 mg tablet 1 tab PO BID 10 Days Qty: 20 0RF No Action acetaminophen [Tylenol] 325 mg capsule 650 mg PO Q6H PRN (Reason: pain (scale score 4-6)) Qty: 30 2RF doxycycline hyclate 100 mg tablet 100 mg PO BID Qty: 20 0RF cyclobenzaprine 10 mg tablet 10 mg PO TID PRN (Reason: muscle spasm) Qty: 10 0RF ibuprofen 800 mg tablet 800 mg PO Q8H PRN (Reason: pain) Qty: 14 0RF prednisone 20 mg tablet 40 mg PO DAILY 5 Days Qty: 10 0RF lidocaine [Lidoderm] 5 % adhesive patch,medicated 1 patch topical DAILY Qty: 15 0RF Rx Instructions: leave on most painful area for up to 12 hrs ketorolac 10 mg tablet 10 mg PO TID 5 Days Qty: 15 0RF cyclobenzaprine 10 mg tablet 10 mg PO BEDTIME PRN (Reason: muscle spasm) Qty: 7 0RF lidocaine 5 % adhesive patch,medicated 1 patch topical DAILY PRN (Reason: pain) Qty: 15 0RF Rx Instructions: leave on most painful area for up to 12 hrs ondansetron 4 mg tablet,disintegrating 4 mg PO Q6-8H PRN (Reason: nausea and vomiting) Qty: 7 0RF amoxicillin-pot clavulanate 875-125 mg tablet 1 tab PO BID 7 Days Qty: 14 0RF cefuroxime axetil 500 mg tablet 500 mg PO BID 5 Days Qty: 10 0RF cyclobenzaprine 5 mg tablet 5 mg PO TID PRN (Reason: muscle spasm) Qty: 14 0RF naproxen 500 mg tablet 500 mg PO BID PRN (Reason: pain) Qty: 30 0RF lidocaine 4 % adhesive patch,medicated 1 patch topical TID PRN (Reason: pain) Qty: 10 0RF Referrals: ED Physician,Generic [Physician] - 2 days (your pcp) Interventions: ED Discharge Assessment Last Done: 07/07/22 11:30 Discharge Date/Time: 07/07/22 11:32
== END 2022-07-07 11:32 | disposition home or self-care (01) ==
PROVIDERS: Emergency Provider Student in an Organized Health Care Education/Training Program
DX: Z48.00 Encounter for change or removal of nonsurgical wound dressing (principal); S31.825D Open bite of left buttock, subsequent encounter; W54.0XXD Bitten by dog, subsequent encounter
CPT/HCPCS: 99282; 99283

== ENCOUNTER 2022-10-30 11:43 | Emergency (ER) | payer MEDICAID, SELFPAY ==
--- NOTE | 2022-10-30 11:52 | ED_ITS ---
HPI - General Adult General Chief complaint: Upper Respiratory Symptoms <FATOUMATA Purvis - Last Filed: 10/30/22 11:55> Stated complaint: fever/ sore throat <FATOUMATA Purvis - Last Filed: 10/30/22 11:55> Time Seen by Provider: 10/30/22 12:03 <FATOUMATA Purvis - Last Filed: 10/30/22 11:55> Source: patient <FATOUMATA Sarmiento - Last Filed: 10/30/22 18:07> Mode of arrival: ambulatory <FATOUMATA Sarmiento - Last Filed: 10/30/22 18:07> History of Present Illness HPI narrative: 37-year-old female with past medical history of asthma, hidradenitis, presenting to the ED complaining of sore throat & subjective fever since last night. Denies ear pain, cough, SOB/CP, recent travel. + sick contacts <FATOUMATA Sarmiento - Last Filed: 10/30/22 18:07> Onset (ago): hour(s) <FATOUMATA Sarmiento - Last Filed: 10/30/22 18:07> Related Data Home medications: Previous Rx's Medication Instructions Recorded cyclobenzaprine 10 mg tablet 10 mg PO TID PRN muscle spasm #10 05/23/20 tabs ibuprofen 800 mg tablet 800 mg PO Q8H PRN pain #14 tabs 05/23/20 lidocaine 5 % topical patch 1 patch topical DAILY pain #15 ea 05/23/20 (Lidoderm) prednisone 20 mg tablet 40 mg PO DAILY inflammation 5 05/23/20 days #10 tabs ketorolac 10 mg tablet 10 mg PO TID 5 days #15 tabs 04/22/21 acetaminophen 325 mg capsule 650 mg PO Q6H PRN pain (scale 06/03/21 (Tylenol) score 4-6) #30 caps doxycycline hyclate 100 mg tablet 100 mg PO BID Hidradenitis #20 06/04/21 tabs cyclobenzaprine 10 mg tablet 10 mg PO BEDTIME PRN muscle spasm 03/10/22 #7 tabs lidocaine 5 % topical patch 1 patch topical DAILY PRN pain #15 03/10/22 ea ondansetron 4 mg disintegrating 4 mg PO Q6-8H PRN nausea and 05/25/22 tablet vomiting #7 tabs cefuroxime axetil 500 mg tablet 500 mg PO BID 5 days #10 tabs 06/14/22 cyclobenzaprine 5 mg tablet 5 mg PO TID PRN muscle spasm #14 06/14/22 tabs lidocaine 4 % topical patch 1 patch topical TID PRN pain #10 ea 06/14/22 naproxen 500 mg tablet 500 mg PO BID PRN pain #30 tabs 06/14/22 amoxicillin 875 mg-potassium 1 tab PO BID 7 days #14 tabs 07/05/22 clavulanate 125 mg tablet amoxicillin 875 mg-potassium 1 tab PO BID dog bite 10 days #20 07/07/22 clavulanate 125 mg tablet tabs <FATOUMATA Purvis Last Filed: 10/30/22 11:55> Allergies/adverse reactions: Allergies Allergy/AdvReac Type Severity Reaction Status Date / Time No Known Allergies Allergy Verified 07/05/22 16:32 <FATOUMATA Purvis Last Filed: 10/30/22 11:55> Review of Systems Review of Systems: Constitutional: +subj Fever, No Chills ENT/Mouth: No Ear Pain, No Nasal Congestion, No Hoarseness, + sore throat, + Rhinorrhea, No Swallowing Difficulty Cardiovascular: No Chest Pain, No SOB Respiratory: No Cough, No Sputum Gastrointestinal: No Nausea, No Vomiting, No Diarrhea, No Constipation, No Abdominal pain Genitourinary: No Dysuria, No Urinary Frequency, No Hematuria, No Flank Pain Musculoskeletal: No joint pain, No Myalgias, No Joint Swelling Skin: No Skin Lesions, No rash Neuro: No Weakness, No Numbness, No Paresthesias <FATOUAMTA Sarmiento Last Filed: 10/30/22 18:07> Yes all other systems are reviewed and are negative <FATOUMATA Sarmiento Last Filed: 10/30/22 18:07> Constitutional: Constitutional: Reports as per HPI <FATOUMATA Sarmiento Last Filed: 10/30/22 18:07> [facility] Past Medical History Attestation statement: The following information was validated with the patient. <FATOUMATA Sarmiento Last Filed: 10/30/22 18:07> Medical History: Medical History Asthma COVID-19 <FATOUMATA Purvis - Last Filed: 10/30/22 11:55> Surgical History: Surgical History History of appendectomy History of axillary surgery History of axillary surgery (~2020) <FATOUMATA Purvis - Last Filed: 10/30/22 11:55> Family History Family History: Family History Brother Leukemia <FATOUMATA Purvis - Last Filed: 10/30/22 11:55> Social History Social History: Social History Alcohol intake: never Patient Tobacco Use Status: Never used Tobacco Advance Directives: No <FATOUMATA Purvis - Last Filed: 10/30/22 11:55> Physical Exam ED Vital Signs: Vital Signs - 24 hr 10/30/22 11:54 Temperature 98 F Pulse Rate 78 Respiratory Rate 18 Blood Pressure 120/78 Pulse Oximetry 99 Oxygen Delivery Method Room Air BMI result Body Mass Index 30.8 <FATOUMATA Purvis - Last Filed: 10/30/22 11:55> Vital Signs - 24 hr 10/30/22 11:54 Temperature 98 F Pulse Rate 78 Respiratory Rate 18 Blood Pressure 120/78 Pulse Oximetry 99 Oxygen Delivery Method Room Air BMI result Body Mass Index 30.8 <FATOUMATA Sarmiento - Last Filed: 10/30/22 18:07> Const General: cooperative, healthy appearing and no acute distress <FATOUMATA Sarmiento - Last Filed: 10/30/22 18:07> Orientation/consciousness: patient oriented x3 <FATOUMATA Sarmiento - Last Filed: 10/30/22 18:07> Limitations: no limitations <FATOUMATA Sarmiento - Last Filed: 10/30/22 18:07> HENMT Head: Yes normal to inspection and Yes atraumatic <FATOUMATA Sarmiento - Last Filed: 10/30/22 18:07> Ears: hearing grossly normal bilaterally, external ears normal, TM's normal bilaterally and mastoids normal <Evelin Luna [place] - Last Filed: 10/30/22 18:07> General nose exam: Normal external nose present <Evelin Luna [facility] Last Filed: 10/30/22 18:07> Face and sinus: Yes normal facial exam <Evelin Luna [place] - Last Filed: 10/30/22 18:07> Mouth: Normal oral and palatal mucosa present <Evelin Luna [facility] Last Filed: 10/30/22 18:07> Throat: Yes posterior oropharynx normal, Yes tonsils normal, Yes uvula midline, No peritonsillar mass, No uvula laterally displaced and No uvular edema <Evelin Luna [place] - Last Filed: 10/30/22 18:07> Eyes General: appearance normal, both eyes and all related structures <Evelin Luna [facility] Last Filed: 10/30/22 18:07> EOM: EOMs intact bilaterally <Evelin Luna [facility] Last Filed: 10/30/22 18:07> Neck Neck: Yes normal visual inspection, Yes no meningeal signs, Yes supple and No anterior neck swelling <Evelin Luna [facility] Last Filed: 10/30/22 18:07> Resp Effort & Inspection: normal respiratory effort and no respiratory distress <Evelin Luna [facility] Last Filed: 10/30/22 18:07> Auscultation: clear to auscultation bilaterally, no rales, no rhonchi and no wheezes <Evelin Luna [facility] Last Filed: 10/30/22 18:07> Cardio Rate: regular rate <Evelin Luna [facility] Last Filed: 10/30/22 18:07> Heart sounds: S1 normal heart sound present and S2 normal heart sound present <FATOUMATA Sarmiento Last Filed: 10/30/22 18:07> Skin Rashes: no rashes <Evelin Luna [facility] Last Filed: 10/30/22 18:07> Wounds: no wounds <Evelin Luna [facility] Last Filed: 10/30/22 18:07> Neuro General: patient oriented x3, tone normal and no meningeal signs <FATOUMATA Sarmiento Last Filed: 10/30/22 18:07> Gait exam (Neuro): Normal gait present <FATOUMATA Sarmiento Last Filed: 10/30/22 18:07> Extrem General: Yes normal to inspection <FATOUMATA Sarmiento Last Filed: 10/30/22 18:07> Course Course Course Narrative: This is an RME: Additional HPI, ROS, PE not included below will be deferred to primary provider. 37 year old female with PMH of asthma presents with fever, sore throat, fatigue and malaise. Patient reports she has a fever of 101F last night at home and she hasn't taken it since. B/L tonsils without exudates. PE: benign Plan: viral testing <FATOUMATA Purvis - Last Filed: 10/30/22 11:55> This is an RME: Additional HPI, ROS, PE not included below will be deferred to primary provider. 37 year old female with PMH of asthma presents with fever, sore throat, fatigue and malaise. Patient reports she has a fever of 101F last night at home and she hasn't taken it since. B/L tonsils without exudates. PE: benign Plan: viral testing -1258--COVID/flu and rapid strep negative Results discussed with patient including worrisome signs and symptoms and strict return precautions, and when to return to the emergency department. They verbalized understanding and feel safe for discharge at this time. <FATOUMATA Sarmiento Last Filed: 10/30/22 18:07> Medical Decision Making Medical Decision Making MDM Narrative: 37-year-old female with past medical history of asthma, hidradenitis, presenting to the ED complaining of sore throat & subjective fever since last night. On exam vital signs stable, NAD, nontoxic appearing, TMs WNL, lungs CTA, or pharynx without erythema or exudate. Uvula midline. Concern for viral illness. Lower suspicion for strep, no evidence of [employer]. The suspicion for pneumonia Plan: COVID/flu, rapid strep Please refer to course for remaining clinical decision making, interpretation of labs/imaging results, and discussions with consultants and/or family members. <FATOUMATA Sarmiento - Last Filed: 10/30/22 18:07> Differential Diagnosis Differential Diagnoses: The differential diagnosis associated with the presentation includes <FATOUMATA Sarmiento - Last Filed: 10/30/22 18:07> As above <FATOUMATA Sarmiento - Last Filed: 10/30/22 18:07> Admission/Observation Consideration of admission/observation: Escalation of care including admission/observation considered <FATOUMATA Sarmiento - Last Filed: 10/30/22 18:07> Lab Data MDM Lab Attestation statement: I reviewed the patient's lab results. <FATOUMATA Sarmiento - Last Filed: 10/30/22 18:07> Labs: Lab Results 10/30/22 10/30/22 10/30/22 Range/Units 12:01 12:01 12:28 COVID-19 (PHI) Negative (Negative) COVID-19 Clin Com See Note Influenza Type A (ALEJANDRA) Negative (Negative) Influenza Type B (ALEJANDRA) Negative (Negative) Influenza A & B Note See Note S. pyogenes GrpA ALEJANDRA Negative (Negative) <FATOUMATA Purvis - Last Filed: 10/30/22 11:55> Lab Results 10/30/22 10/30/22 10/30/22 Range/Units 12:01 12:01 12:28 COVID-19 (PHI) Negative (Negative) COVID-19 Clin Com See Note Influenza Type A (ALEJANDRA) Negative (Negative) Influenza Type B (ALEJANDRA) Negative (Negative) Influenza A & B Note See Note S. pyogenes GrpA ALEJANDRA Negative (Negative) <FATOUMATA Sarmiento - Last Filed: 10/30/22 18:07> Radiology Impression Discussion of test interpretation with radiology: I have reviewed the radiologist's reading. <FATOUMATA Sarmiento - Last Filed: 10/30/22 18:07> External Record Review External record reviewed: Inpatient record, Office record, Outpatient record, Prior outpatient labs, Prior outpatient radiology, Primary care record and Outside ED record <FATOUMATA Sarmiento Last Filed: 10/30/22 18:07> Discharge Plan Discharge Clinical Impression: Upper respiratory infection <FATOUMATA Purvis - Last Filed: 10/30/22 11:55> Patient Disposition: Home, Self-Care <FATOUMATA Purvis Last Filed: 10/30/22 11:55> Instructions: Upper Respiratory Infection (ED) <FATOUMATA Purvis Last Filed: 10/30/22 11:55> Additional Instructions: You tested negative for COVID, flu, and strep throat Rest. Stay hydrated Take Tylenol/ Motrin as needed Follow-up with her doctor Return to the ED if symptoms persist or worsen <FATOUMATA Purvis - Last Filed: 10/30/22 11:55> Prescriptions: No Action acetaminophen [Tylenol] 325 mg capsule 650 mg PO Q6H PRN (Reason: pain (scale score 4-6)) Qty: 30 2RF doxycycline hyclate 100 mg tablet 100 mg PO BID Qty: 20 0RF cyclobenzaprine 10 mg tablet 10 mg PO TID PRN (Reason: muscle spasm) Qty: 10 0RF ibuprofen 800 mg tablet 800 mg PO Q8H PRN (Reason: pain) Qty: 14 0RF prednisone 20 mg tablet 40 mg PO DAILY 5 Days Qty: 10 0RF lidocaine [Lidoderm] 5 % adhesive patch,medicated 1 patch topical DAILY Qty: 15 0RF Rx Instructions: leave on most painful area for up to 12 hrs ketorolac 10 mg tablet 10 mg PO TID 5 Days Qty: 15 0RF cyclobenzaprine 10 mg tablet 10 mg PO BEDTIME PRN (Reason: muscle spasm) Qty: 7 0RF lidocaine 5 % adhesive patch,medicated 1 patch topical DAILY PRN (Reason: pain) Qty: 15 0RF Rx Instructions: leave on most painful area for up to 12 hrs ondansetron 4 mg tablet,disintegrating 4 mg PO Q6-8H PRN (Reason: nausea and vomiting) Qty: 7 0RF amoxicillin-pot clavulanate 875-125 mg tablet 1 tab PO BID 7 Days Qty: 14 0RF cefuroxime axetil 500 mg tablet 500 mg PO BID 5 Days Qty: 10 0RF cyclobenzaprine 5 mg tablet 5 mg PO TID PRN (Reason: muscle spasm) Qty: 14 0RF naproxen 500 mg tablet 500 mg PO BID PRN (Reason: pain) Qty: 30 0RF lidocaine 4 % adhesive patch,medicated 1 patch topical TID PRN (Reason: pain) Qty: 10 0RF amoxicillin-pot clavulanate 875-125 mg tablet 1 tab PO BID 10 Days Qty: 20 0RF <FATOUMATA Purvis - Last Filed: 10/30/22 11:55> Referrals: Physician,Unknown J [Primary Care Provider] - <FATOUMATA Purvis - Last Filed: 10/30/22 11:55> Interventions: ED Discharge Assessment Last Done: 10/30/22 13:26 <FATOUMATA Purvis - Last Filed: 10/30/22 11:55> Discharge Date/Time: 10/30/22 13:27 <FATOUMATA Purvis - Last Filed: 10/30/22 11:55>
[2022-10-30 11:54] VITALS: BP 120/78; PULSE 78; RESP 18; TEMP 36.6; O2SAT 99; BMI 30.8
[2022-10-30 12:35] LABS: COVID-19 Test Negative (Negative); IDNOW Serial# 9DB6401D; IDNOW Serial# BCCEAD1C; Influenza A Negative (Negative); Influenza B2 Negative (Negative)
[2022-10-30 12:47] LABS: IDNOW Serial# 08D9AD1C; Strep A Nucleic Acid Negative (Negative)
== END 2022-10-30 13:27 | disposition home or self-care (01) ==
PROVIDERS: Physician Assistant; Emergency Provider Emergency Medicine
DX: J06.9 Acute upper respiratory infection, unspecified (principal); J02.9 Acute pharyngitis, unspecified; Z20.822 Contact with and (suspected) exposure to COVID-19; Z79.899 Other long term (current) drug therapy
CPT/HCPCS: 87502; 87635; 87651; 99282; 99283

== ENCOUNTER 2022-11-17 13:28 | Emergency (ER) | payer MEDICAID, SELFPAY ==
--- NOTE | 2022-11-17 14:43 | ED_ITS ---
HPI - Back Pain/Injury General Chief Complaint: Back Pain/Injury Stated Complaint: Back inj/Work related Time Seen by Provider: 11/17/22 14:45 Source: patient Mode of arrival: ambulatory Limitations: no limitations History of Present Illness HPI Narrative: This is a 37-year-old female who is otherwise healthy who presents to the ER with complaints of back pain after an injury which occurred while working. 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 Patient reports this occurred on evening. She did notify her employer. She is waiting to hear from occupational health for an appointment. She reports she has some pain which radiates down the right leg. No numbness or tingling. No numbness in the groin. No bowel or bladder incontinence. No fevers or chills. Patient is ambulatory. Related Data Previous Rx's Medication Instructions Recorded cyclobenzaprine 10 mg tablet 10 mg PO TID PRN muscle spasm #10 05/23/20 tabs ibuprofen 800 mg tablet 800 mg PO Q8H PRN pain #14 tabs 05/23/20 lidocaine 5 % topical patch 1 patch topical DAILY pain #15 ea 05/23/20 (Lidoderm) prednisone 20 mg tablet 40 mg PO DAILY inflammation 5 05/23/20 days #10 tabs ketorolac 10 mg tablet 10 mg PO TID 5 days #15 tabs 04/22/21 acetaminophen 325 mg capsule 650 mg PO Q6H PRN pain (scale 06/03/21 (Tylenol) score 4-6) #30 caps doxycycline hyclate 100 mg tablet 100 mg PO BID Hidradenitis #20 06/04/21 tabs cyclobenzaprine 10 mg tablet 10 mg PO BEDTIME PRN muscle spasm 03/10/22 #7 tabs lidocaine 5 % topical patch 1 patch topical DAILY PRN pain #15 03/10/22 ea ondansetron 4 mg disintegrating 4 mg PO Q6-8H PRN nausea and 05/25/22 tablet vomiting #7 tabs cefuroxime axetil 500 mg tablet 500 mg PO BID 5 days #10 tabs 06/14/22 cyclobenzaprine 5 mg tablet 5 mg PO TID PRN muscle spasm #14 06/14/22 tabs lidocaine 4 % topical patch 1 patch topical TID PRN pain #10 ea 06/14/22 naproxen 500 mg tablet 500 mg PO BID PRN pain #30 tabs 06/14/22 amoxicillin 875 mg-potassium 1 tab PO BID 7 days #14 tabs 07/05/22 clavulanate 125 mg tablet amoxicillin 875 mg-potassium 1 tab PO BID dog bite 10 days #20 07/07/22 clavulanate 125 mg tablet tabs cyclobenzaprine 10 mg tablet 10 mg PO TID PRN muscle spasm #14 11/17/22 tabs lidocaine 5 % topical patch 1 patch topical DAILY #15 ea 11/17/22 (Lidoderm) naproxen 500 mg tablet 500 mg PO BID PRN pain #20 tabs 11/17/22 Allergies Allergy/AdvReac Type Severity Reaction Status Date / Time No Known Allergies Allergy Verified 11/17/22 14:44 Review of Systems Review of Systems: Yes all other systems are reviewed and are negative Constitutional: Constitutional: Reports no additional constitutional complaints, Denies body ache(s), Denies chills, Denies fever(s), Denies headache(s) and Denies weakness Eyes: Eyes: Reports no additional eye complaints and Denies change in vision ENT: Reports system reviewed and no additional complaints, except as do cumented, Denies dizziness, Denies headache(s), Denies nasal congestion, Denies nasal discharge and Denies neck pain Cardiovascular: Cardiovascular: Reports no additional cardiovascular complaints, Denies chest pain, Denies leg edema and Denies dyspnea Respiratory: Respiratory: Reports no additional respiratory complaints, Denies cough and Denies dyspnea Gastrointestinal: Gastrointestinal: Reports no additional gastrointestinal complaints, Denies abdominal pain, Denies diarrhea, Denies nausea and Denies vomiting Genitourinary: Genitourinary: Reports no additional female genitourinary complaints and Denies urinary incontinence Musculoskeletal: Musculoskeletal: Reports no additional musculoskeletal complaints, Reports back pain, Denies arthralgias, Denies joint swelling, Denies neck pain, Denies numbness and Denies tingling Integumentary/Breasts: Skin/Breast: Reports system reviewed and no additional complaints, except as docu and Denies rash Neurologic: Reports system reviewed and no additional complaints, except as documented, Denies Abnormal speech present, Denies dizziness, Denies headache(s), Denies numbness, Denies tingling and Denies weakness PMFSH Past Medical History Attestation statement: The following information was validated with the patient. Source: old records reviewed and nursing notes reviewed Medical History Asthma COVID-19 Surgical History History of appendectomy History of axillary surgery History of axillary surgery (~2020) Family History Family History Brother Leukemia Social History Social History Alcohol intake: never Patient Tobacco Use Status: Never used Tobacco Advance Directives: No Advance Directives Information Provided: Yes Physical Exam Vital Signs: Vital Signs: Last Vital Signs Temp 97.4 F 11/17/22 14:44 Pulse 77 11/17/22 14:44 Resp 18 11/17/22 14:44 BP 136/77 11/17/22 14:44 Pulse Ox 99 11/17/22 14:44 O2 Del Method Room Air 11/17/22 14:44 BMI result Body Mass Index 31.1 Const: General: cooperative, healthy appearing, comfortable and no acute distress Orientation/consciousness: patient oriented x3 Limitations: no limitations HEENT: Head: Yes normal to inspection Ears: hearing grossly normal bilaterally General nose exam: Normal external nose present Face and sinus: Yes normal facial exam Mouth: Normal oral and palatal mucosa present Throat: Yes posterior oropharynx normal Eyes: General: appearance normal, both eyes and all related structures Pupils: Equal, round and reactive pupils present Neck: Neck: Yes normal visual inspection Chest: Chest palpation & inspection: normal inspection of the chest Resp: Effort & Inspection: normal respiratory effort Auscultation: clear to auscultation bilaterally Cardio: Rate: regular rate Rhythm: regular rhythm Peripheral pulses: Peripheral pulses 2+ throughout GI: Inspection: Yes normal to inspection Palpation (GI): Soft to palpation and nontender Auscultation: normal bowel sounds Back/Spine/Pelvis: Other: There is tenderness the lumbar mid spine with no step-offs or deformities. There is also tenderness the left lumbar soft tissue area. Straight leg raise is normal Thoracic/Lumbar Spine: thoracic and lumbar spine normal to inspection Skin: General skin exam: no rashes or lesions noted Neuro: General: patient oriented x3, no focal motor deficits and normal sensation to monofilament Cranial nerves: Yes Equal, round and reactive pupils present Cognition (Neuro): normal cognition Speech: No Abnormal speech present Gait exam (Neuro): Normal gait present Motor exam (neuro): 5/5 motor strength present throughout Sensory Exam: Normal double simultaneous stimulation for sensation Deep tendon reflexes (DTR's): Right patellar reflex intensity grade: 2+ and Left patellar reflex intensity grade: 2+ Extrem: General: Yes normal to inspection Course Course Course Narrative: This is a rapid medical exam. deferred additional HPI, ROS, PE to primary provider. 37 with no known medical history here with complaints of back pain since evening while working. 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 Medical Decision Making Medical Decision Making [facility] Narrative: 37-year-old female here with lower back pain after a work injury which occurred evening. 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 On arrival patient has tenderness over the lumbar spine and left lumbar soft tissue with no step-offs deformities. Normal neuro exam with no focal deficits. Recommend patient follow-up with occupational health. Patient will be treated with NSAIDs, muscle relaxers, medicated patches. Reviewed worrisome signs and symptoms of when to return to the emergency room. Comfortable plan for discharge home. Differential Diagnosis Differential Diagnoses: The differential diagnosis associated with the presentation includes Low concern for fracture, herniated disc, epidural hematoma or epidural abscess, cord compression, quite with no neurological deficits or red flag symptoms. Discharge Plan Discharge Clinical Impression: Lumbar strain Patient Disposition: Home, Self-Care Instructions: Low Back Strain (ED), Lower Back Exercises (ED) Additional Instructions: Heat or ice Gentle stretching No heavy lifting or bending Follow-up with your employers occupational health Prescriptions: New cyclobenzaprine 10 mg tablet 10 mg PO TID PRN (Reason: muscle spasm) Qty: 14 0RF naproxen 500 mg tablet 500 mg PO BID PRN (Reason: pain) Qty: 20 0RF lidocaine [Lidoderm] 5 % adhesive patch,medicated 1 patch topical DAILY Qty: 15 0RF Rx Instructions: leave on most painful area for up to 12 hrs No Action acetaminophen [Tylenol] 325 mg capsule 650 mg PO Q6H PRN (Reason: pain (scale score 4-6)) Qty: 30 2RF doxycycline hyclate 100 mg tablet 100 mg PO BID Qty: 20 0RF cyclobenzaprine 10 mg tablet 10 mg PO TID PRN (Reason: muscle spasm) Qty: 10 0RF ibuprofen 800 mg tablet 800 mg PO Q8H PRN (Reason: pain) Qty: 14 0RF prednisone 20 mg tablet 40 mg PO DAILY 5 Days Qty: 10 0RF lidocaine [Lidoderm] 5 % adhesive patch,medicated 1 patch topical DAILY Qty: 15 0RF Rx Instructions: leave on most painful area for up to 12 hrs ketorolac 10 mg tablet 10 mg PO TID 5 Days Qty: 15 0RF cyclobenzaprine 10 mg tablet 10 mg PO BEDTIME PRN (Reason: muscle spasm) Qty: 7 0RF lidocaine 5 % adhesive patch,medicated 1 patch topical DAILY PRN (Reason: pain) Qty: 15 0RF Rx Instructions: leave on most painful area for up to 12 hrs ondansetron 4 mg tablet,disintegrating 4 mg PO Q6-8H PRN (Reason: nausea and vomiting) Qty: 7 0RF amoxicillin-pot clavulanate 875-125 mg tablet 1 tab PO BID 7 Days Qty: 14 0RF cefuroxime axetil 500 mg tablet 500 mg PO BID 5 Days Qty: 10 0RF cyclobenzaprine 5 mg tablet 5 mg PO TID PRN (Reason: muscle spasm) Qty: 14 0RF naproxen 500 mg tablet 500 mg PO BID PRN (Reason: pain) Qty: 30 0RF lidocaine 4 % adhesive patch,medicated 1 patch topical TID PRN (Reason: pain) Qty: 10 0RF amoxicillin-pot clavulanate 875-125 mg tablet 1 tab PO BID 10 Days Qty: 20 0RF Stand Alone Forms: Work/School Release Interventions: ED Discharge Assessment Last Done: 11/17/22 14:52 Discharge Date/Time: 11/17/22 15:02
[2022-11-17 14:44] VITALS: BP 136/77; PULSE 77; RESP 18; TEMP 36.3; O2SAT 99; BMI 31.1
== END 2022-11-17 15:02 | disposition home or self-care (01) ==
PROVIDERS: Emergency Provider Student in an Organized Health Care Education/Training Program
DX: M54.50 Low back pain, unspecified (principal)
CPT/HCPCS: 99282; 99283

== ENCOUNTER 2023-01-06 14:40 | Emergency (ER) | payer MEDICAID, SELFPAY ==
[2023-01-06 15:00] VITALS: BP 123/77; PULSE 79; RESP 16; TEMP 36.2; O2SAT 95; BMI 31.0
--- NOTE | 2023-01-06 15:00 | ED.UPPEXIN ---
HPI - Extremity Injury (Upper) General Chief Complaint: Extremity Injury, Upper Stated Complaint: R shoulder pain Time Seen by Provider: 01/06/23 15:10 Source: patient Mode of arrival: ambulatory Limitations: no limitations History of Present Illness HPI narrative: 37 yo female arline, right hand dominant here with complaints of intermittent right shoulder pain x several weeks with no known injury or trauma. Patient reports symptoms are all gone now but her employer is requesting a note for her to return to work. Patient denies any weakness, pain in the extremity, numbness, tingling. When she had pain she described it as pain her right shoulder which was worsened with movement of the arm and laying on the affected side at nighttime. Related Data Previous Rx's Medication Instructions Recorded cyclobenzaprine 10 mg tablet 10 mg PO TID PRN muscle spasm #10 05/23/20 tabs ibuprofen 800 mg tablet 800 mg PO Q8H PRN pain #14 tabs 05/23/20 lidocaine 5 % topical patch 1 patch topical DAILY pain #15 ea 05/23/20 (Lidoderm) prednisone 20 mg tablet 40 mg PO DAILY inflammation 5 05/23/20 days #10 tabs ketorolac 10 mg tablet 10 mg PO TID 5 days #15 tabs 04/22/21 acetaminophen 325 mg capsule 650 mg PO Q6H PRN pain (scale 06/03/21 (Tylenol) score 4-6) #30 caps doxycycline hyclate 100 mg tablet 100 mg PO BID Hidradenitis #20 06/04/21 tabs cyclobenzaprine 10 mg tablet 10 mg PO BEDTIME PRN muscle spasm 03/10/22 #7 tabs lidocaine 5 % topical patch 1 patch topical DAILY PRN pain #15 03/10/22 ea ondansetron 4 mg disintegrating 4 mg PO Q6-8H PRN nausea and 05/25/22 tablet vomiting #7 tabs cefuroxime axetil 500 mg tablet 500 mg PO BID 5 days #10 tabs 06/14/22 cyclobenzaprine 5 mg tablet 5 mg PO TID PRN muscle spasm #14 06/14/22 tabs lidocaine 4 % topical patch 1 patch topical TID PRN pain #10 ea 06/14/22 naproxen 500 mg tablet 500 mg PO BID PRN pain #30 tabs 06/14/22 amoxicillin 875 mg-potassium 1 tab PO BID 7 days #14 tabs 07/05/22 clavulanate 125 mg tablet amoxicillin 875 mg-potassium 1 tab PO BID dog bite 10 days #20 07/07/22 clavulanate 125 mg tablet tabs cyclobenzaprine 10 mg tablet 10 mg PO TID PRN muscle spasm #14 11/17/22 tabs lidocaine 5 % topical patch 1 patch topical DAILY #15 ea 11/17/22 (Lidoderm) naproxen 500 mg tablet 500 mg PO BID PRN pain #20 tabs 11/17/22 Allergies Allergy/AdvReac Type Severity Reaction Status Date / Time No Known Allergies Allergy Verified 01/06/23 15:00 Review of Systems Review of Systems: Yes all other systems are reviewed and are negative Constitutional: Constitutional: Reports no additional constitutional complaints, Denies body ache(s), Denies chills, Denies fever(s), Denies headache(s) and Denies weakness Eyes: Eyes: Reports no additional eye complaints and Denies change in vision ENT: Reports system reviewed and no additional complaints, except as documented, Denies dizziness, Denies headache(s), Denies nasal congestion, Denies nasal discharge and Denies neck pain Cardiovascular: Cardiovascular: Reports no additional cardiovascular complaints, Denies chest pain, Denies leg edema and Denies dyspnea Respiratory: Respiratory: Reports no additional respiratory complaints, Denies cough and Denies dyspnea Gastrointestinal: Gastrointestinal: Reports no additional gastrointestinal complaints, Denies abdominal pain, Denies diarrhea, Denies nausea and Denies vomiting Genitourinary: Genitourinary: Reports no additional female genitourinary complaints and Denies urinary incontinence Musculoskeletal: Musculoskeletal: Reports no additional musculoskeletal complaints, Denies back pain, Reports arthralgias, Denies joint swelling, Denies limited range of motion, Denies neck pain, Denies numbness and Denies tingling Integumentary/Breasts: Skin/Breast: Reports system reviewed and no additional complaints, except as docu and Denies rash Neurologic: Reports system reviewed and no additional complaints, except as documented, Denies Abnormal speech present, Denies dizziness, Denies headache(s), Denies numbness, Denies tingling and Denies weakness PMFSH Past Medical History Attestation statement: The following information was validated with the patient. Source: old records reviewed and nursing notes reviewed Medical History Asthma COVID-19 Surgical History History of appendectomy History of axillary surgery History of axillary surgery (~2020) Family History Family History Brother Leukemia Social History Social History Alcohol intake: never Patient Tobacco Use Status: Never used Tobacco Smoked in Last 30 Days: No Use of substances other than those prescribed or required for medical reasons: No Advance Directives: No Advance Directives Information Provided: No Physical Exam Vital Signs: Vital Signs: Last Vital Signs Temp 97.2 F 01/06/23 15:00 Pulse 71 01/06/23 15:59 Resp 18 01/06/23 15:59 BP 130/80 01/06/23 15:59 Pulse Ox 99 01/06/23 15:59 O2 Del Method Room Air 01/06/23 15:59 BMI result Body Mass Index 31.0 Const: General: cooperative, healthy appearing, comfortable and no acute distress Orientation/consciousness: patient oriented x3 Limitations: no limitations HEENT: Head: Yes normal to inspection Ears: hearing grossly normal bilaterally General nose exam: Normal external nose present Face and sinus: Yes normal facial exam Mouth: Normal oral and palatal mucosa present Throat: Yes posterior oropharynx normal Eyes: General: appearance normal, both eyes and all related structures Pupils: Equal, round and reactive pupils present Neck: Neck: Yes normal visual inspection Chest: Chest palpation & inspection: normal inspection of the chest Resp: Effort & Inspection: normal respiratory effort Auscultation: clear to auscultation bilaterally Cardio: Rate: regular rate Rhythm: regular rhythm Peripheral pulses: Peripheral pulses 2+ throughout GI: Inspection: Yes normal to inspection Palpation (GI): Soft to palpation and nontender Auscultation: normal bowel sounds Back/Spine/Pelvis: Thoracic/Lumbar Spine: thoracic and lumbar spine normal to inspection Skin: General skin exam: no rashes or lesions noted Neuro: General: patient oriented x3, no focal motor deficits and normal sensation to monofilament Cranial nerves: Yes Equal, round and reactive pupils present Cognition (Neuro): normal cognition Speech: No Abnormal speech present Gait exam (Neuro): Normal gait present Motor exam (neuro): 5/5 motor strength present throughout Extrem: Other: FROM both active and passive of the right shoulder. No erythema swelling or deformity. No pain on palpation. Normal radial and ulnar pulses, normal sensation General: Yes normal to inspection Course Course Course Narrative: RME: 37-year-old female with past medical history of asthma, hidradenitis, presenting to the ED complaining of?R shoulder pain radiating down RUE x3 days w/assoc RUE numbness/tingling. Works as [employer], was sent to ED for clearance. Pain worse w/sleeping. denies injury/fall, EMERSON, neck pain, weakness EKG, R shoulder XR ordered Full HPI, ROS and PE to be performed by primary ED provider. Reevaluation(s) Reevaluation #1: X-ray shows no acute finding. EKG shows no new changes. Patient is asymptomatic here. Patient reports she needs a note to return to work. As she tells me her symptoms are resolved and she is feeling better I will give her note to return to work. She should see her doctor if she has any continued symptoms. Reviewed worrisome signs and symptoms of when to return to the emergency room. Comfortable plan for discharge home. Medical Decision Making Medical Decision Making MDM Narrative: 37 yo female right hand dominant here seeking note to return to work. It seems she had been having some intermittent right shoulder pain which is resolved. On exam, normal inspection with FROM and no pain on palpation. x-rays ,EKG ordered from triage. Differential Diagnosis Differential Diagnoses: The differential diagnosis associated with the presentation includes Independent Interpretation I performed an independent interpretation of an: EKG and Plain X-Ray Interpretation: EKG shows normal sinus rhythm with a rate of 76, normal VT, normal QRS, normal QT, nonspecific ST changes seen which are unchanged from previous EKG 05/25/2022 I independently reviewed the x-ray and agree with radiologist's report Radiology Impression Discussion of test interpretation with radiology: I have reviewed the radiologist's reading. Radiologist Impression: Launch?Image [address] [address] XRay Report Signed Patient: Keli Tuttle MR#: [id number] : 1985 Acct:[id number] Age/Sex: 37 / F ADM Date: 01/06/23 Loc: HO.ED Attending Dr: Ordering Physician: Evelin Luna Date of Service: 01/06/23 Procedure(s): XR shoulder RT min 2V Accession Number(s): [id number] cc: Evelin Luna~ EXAMINATION: XR SHOULDER, RIGHT CLINICAL INFORMATION: Shoulder pain? COMPARISON: None available.? TECHNIQUE: 5 views of the right shoulder. FINDINGS: No evidence of acute fracture or dislocation. Glenohumeral and acromioclavicular alignment is anatomic with normal joint space. No abnormal soft tissue calcifications. No suspicious lung findings. XR/XR shoulder RT min 2V IMPRESSION: No radiographic evidence of acute osseous abnormality. Discharge Plan Discharge Clinical Impression: Shoulder pain, right Patient Disposition: Home, Self-Care Instructions: Arthralgia (ED) Additional Instructions: x-ray is normal EKG is normal Prescriptions: No Action acetaminophen [Tylenol] 325 mg capsule 650 mg PO Q6H PRN (Reason: pain (scale score 4-6)) Qty: 30 2RF doxycycline hyclate 100 mg tablet 100 mg PO BID Qty: 20 0RF cyclobenzaprine 10 mg tablet 10 mg PO TID PRN (Reason: muscle spasm) Qty: 10 0RF ibuprofen 800 mg tablet 800 mg PO Q8H PRN (Reason: pain) Qty: 14 0RF prednisone 20 mg tablet 40 mg PO DAILY 5 Days Qty: 10 0RF lidocaine [Lidoderm] 5 % adhesive patch,medicated 1 patch topical DAILY Qty: 15 0RF Rx Instructions: leave on most painful area for up to 12 hrs ketorolac 10 mg tablet 10 mg PO TID 5 Days Qty: 15 0RF cyclobenzaprine 10 mg tablet 10 mg PO BEDTIME PRN (Reason: muscle spasm) Qty: 7 0RF lidocaine 5 % adhesive patch,medicated 1 patch topical DAILY PRN (Reason: pain) Qty: 15 0RF Rx Instructions: leave on most painful area for up to 12 hrs ondansetron 4 mg tablet,disintegrating 4 mg PO Q6-8H PRN (Reason: nausea and vomiting) Qty: 7 0RF amoxicillin-pot clavulanate 875-125 mg tablet 1 tab PO BID 7 Days Qty: 14 0RF cefuroxime axetil 500 mg tablet 500 mg PO BID 5 Days Qty: 10 0RF cyclobenzaprine 5 mg tablet 5 mg PO TID PRN (Reason: muscle spasm) Qty: 14 0RF naproxen 500 mg tablet 500 mg PO BID PRN (Reason: pain) Qty: 30 0RF lidocaine 4 % adhesive patch,medicated 1 patch topical TID PRN (Reason: pain) Qty: 10 0RF amoxicillin-pot clavulanate 875-125 mg tablet 1 tab PO BID 10 Days Qty: 20 0RF cyclobenzaprine 10 mg tablet 10 mg PO TID PRN (Reason: muscle spasm) Qty: 14 0RF naproxen 500 mg tablet 500 mg PO BID PRN (Reason: pain) Qty: 20 0RF lidocaine [Lidoderm] 5 % adhesive patch,medicated 1 patch topical DAILY Qty: 15 0RF Rx Instructions: leave on most painful area for up to 12 hrs Referrals: [facility] [Primary Care Provider] - 1 week (as needed) Stand Alone Forms: Work/School Release Interventions: ED Discharge Assessment Last Done: 01/06/23 16:01 Discharge Date/Time: 01/06/23 16:02
[2023-01-06 15:59] VITALS: BP 130/80; PULSE 71; RESP 18; O2SAT 99
== END 2023-01-06 16:02 | disposition home or self-care (01) ==
PROVIDERS: Emergency Provider Emergency Medicine Emergency Medical Services
DX: M25.511 Pain in right shoulder (principal); J45.909 Unspecified asthma, uncomplicated; L73.2 Hidradenitis suppurativa
CPT/HCPCS: 73030; 93005; 99283; 99284

== ENCOUNTER 2023-01-31 14:05 | Emergency (ER) | payer MEDICAID, SELFPAY ==
--- NOTE | ~2023-01-31 | XR_ITS ---
EXAMINATION: XR ANKLE, RIGHT CLINICAL INFORMATION: Ankle pain COMPARISON: 12/25/2021 ankle radiographs TECHNIQUE: AP, lateral, and mortise views of the right ankle. FINDINGS: No acute fracture or dislocation. Joint spaces are maintained. Soft tissues are unremarkable. No joint effusion. XR/XR ankle RT min 3V IMPRESSION: No acute fracture or dislocation.
--- NOTE | ~2023-01-31 | US_ITS ---
EXAMINATION: US PELVIS CLINICAL INFORMATION: Suprapubic pain and vomiting COMPARISON: CT abdomen pelvis performed same day TECHNIQUE: Ultrasound of the pelvis is performed using both transabdominal and transvaginal transducers along with Doppler. Transvaginal imaging is performed due to inadequate visualization transabdominally. FINDINGS: Uterus: The uterus is anteverted and measures 9.4 x 4.8 x 5.8 cm. Trace fluid in the endocervical canal. The double wall endometrial thickness is 14 mm. The uterus is smooth in contour and has normal myometrial echogenicity. No visible fibroid. Adnexa: Both ovaries are visualized. There is normal color flow to the adnexa. There is no ovarian torsion. There is no pelvic ascites or fluid collection. Right ovary measures 2.3 x 2.6 x 1.5 cm. Left ovary measures 2.5 x 3.3 x 2.7 cm. US/US pelvic and transvaginal IMPRESSION: Trace fluid in the endocervical canal. Otherwise unremarkable pelvic ultrasound.
--- NOTE | ~2023-01-31 | CT_ITS ---
EXAMINATION: CT ABDOMEN AND PELVIS WITH CONTRAST CLINICAL INFORMATION: Right lower quadrant pain COMPARISON: CT of abdomen pelvis 05/23/2020 TECHNIQUE: Multidetector volumetric images were obtained from the superior aspect of the liver through the pubic symphysis following administration 85 mL of Omnipaque 350 intravenous contrast. Sagittal and coronal reformatted images were obtained on the technologist's workstation. Oral contrast: No This CT examination was performed using dose optimization techniques as appropriate, variously including the following: *Automated exposure control *Adjustment of mA and/or kV according to patient size (this includes techniques or standardized protocols for targeted exams where dose is matched to indication/reason for exam; i.e. extremities or head) *Use of iterative reconstruction technique DLP: 666 mGy-cm FINDINGS: LUNG BASES: Unremarkable. ABDOMINAL AND PELVIC WALL: There is subcutaneous fat stranding and skin thickening involving the left inguinal and left vulvar soft tissues raising suspicion for cellulitis. Diastases of the rectus abdominis musculature. LIVER AND BILIARY TREE: Liver is enlarged measuring 18.5 cm in span. GALLBLADDER: Unremarkable. PANCREAS: Unremarkable. SPLEEN: Unremarkable. ADRENAL GLANDS: Unremarkable. KIDNEYS AND URETERS: Unremarkable. GASTROINTESTINAL TRACT: Colonic diverticulosis without evidence of diverticulitis. Surgical sutures in the expected region of the appendix. VASCULAR: Unremarkable. LYMPH NODES/PERITONEUM: Bilateral inguinal lymphadenopathy, measuring up to 1.4 cm on the right short axis. FREE FLUID: None. BLADDER: Unremarkable. PELVIC VISCERA: Unremarkable. OSSEOUS STRUCTURES: Unremarkable. CT/CT abdomen pelvis w IV con IMPRESSION: 1. There is subcutaneous fat stranding and skin thickening involving the left inguinal and left vulvar soft tissues raising suspicion for cellulitis. 2. Bilateral inguinal lymphadenopathy, measuring up to 1.4 cm on the right short axis, possibly reactive given suspected adjacent infection. 3. Hepatomegaly.
--- NOTE | ~2023-01-31 | US_ITS ---
EXAMINATION: US PELVIS CLINICAL INFORMATION: Suprapubic pain and vomiting COMPARISON: CT abdomen pelvis performed same day TECHNIQUE: Ultrasound of the pelvis is performed using both transabdominal and transvaginal transducers along with Doppler. Transvaginal imaging is performed due to inadequate visualization transabdominally. FINDINGS: Uterus: The uterus is anteverted and measures 9.4 x 4.8 x 5.8 cm. Trace fluid in the endocervical canal. The double wall endometrial thickness is 14 mm. The uterus is smooth in contour and has normal myometrial echogenicity. No visible fibroid. Adnexa: Both ovaries are visualized. There is normal color flow to the adnexa. There is no ovarian torsion. There is no pelvic ascites or fluid collection. Right ovary measures 2.3 x 2.6 x 1.5 cm. Left ovary measures 2.5 x 3.3 x 2.7 cm. US/US pelvic ovarian doppler IMPRESSION: Trace fluid in the endocervical canal. Otherwise unremarkable pelvic ultrasound.
--- NOTE | 2023-01-31 14:15 | ED_ITS ---
HPI - General Adult General Chief complaint: General Medical Stated complaint: stomach pain, right ankle pain Time Seen by Provider: 01/31/23 14:54 Source: patient Mode of arrival: ambulatory Limitations: no limitations History of Present Illness HPI narrative: 37-year-old female presents to the emergency department today with a complaint of lower abdominal pain and associated nausea/vomiting x2 days. Patient reports sudden onset of lower abdominal pain bilaterally described as a cramping sensation without radiation. She reports nausea with 1 episode of nonbloody vomiting 2 days ago secondary to the pain severity. She currently rates her abdominal pain 9/10, non radiating. Her last bowel movement was 2 days ago however has been passing flatus, hx of appendectomy. Currently follows with OBGYN, last examination was 1 year ago. Last menstrual period 01/15/2023. Addition patient reports she would like an x-ray of her right ankle, has been intermittently swelling for the past few months status post rolling her ankle. No calf pain, numbness, tingling. Related Data Previous Rx's Medication Instructions Recorded cyclobenzaprine 10 mg tablet 10 mg PO TID PRN muscle spasm #10 05/23/20 tabs ibuprofen 800 mg tablet 800 mg PO Q8H PRN pain #14 tabs 05/23/20 lidocaine 5 % topical patch 1 patch topical DAILY pain #15 ea 05/23/20 (Lidoderm) prednisone 20 mg tablet 40 mg PO DAILY inflammation 5 05/23/20 days #10 tabs ketorolac 10 mg tablet 10 mg PO TID 5 days #15 tabs 04/22/21 acetaminophen 325 mg capsule 650 mg PO Q6H PRN pain (scale 06/03/21 (Tylenol) score 4-6) #30 caps doxycycline hyclate 100 mg tablet 100 mg PO BID Hidradenitis #20 06/04/21 tabs cyclobenzaprine 10 mg tablet 10 mg PO BEDTIME PRN muscle spasm 03/10/22 #7 tabs lidocaine 5 % topical patch 1 patch topical DAILY PRN pain #15 03/10/22 ea ondansetron 4 mg disintegrating 4 mg PO Q6-8H PRN nausea and 05/25/22 tablet vomiting #7 tabs cefuroxime axetil 500 mg tablet 500 mg PO BID 5 days #10 tabs 06/14/22 cyclobenzaprine 5 mg tablet 5 mg PO TID PRN muscle spasm #14 06/14/22 tabs lidocaine 4 % topical patch 1 patch topical TID PRN pain #10 ea 06/14/22 naproxen 500 mg tablet 500 mg PO BID PRN pain #30 tabs 06/14/22 amoxicillin 875 mg-potassium 1 tab PO BID 7 days #14 tabs 07/05/22 clavulanate 125 mg tablet amoxicillin 875 mg-potassium 1 tab PO BID dog bite 10 days #20 07/07/22 clavulanate 125 mg tablet tabs cyclobenzaprine 10 mg tablet 10 mg PO TID PRN muscle spasm #14 11/17/22 tabs lidocaine 5 % topical patch 1 patch topical DAILY #15 ea 11/17/22 (Lidoderm) naproxen 500 mg tablet 500 mg PO BID PRN pain #20 tabs 11/17/22 Allergies Allergy/AdvReac Type Severity Reaction Status Date / Time No Known Allergies Allergy Verified 01/31/23 14:20 Review of Systems Review of Systems: Constitutional : No Weight loss, No Fever, No Chills, No Fatigue, No Malaise ENT/Mouth : No sore throat, No Rhinorrhea Eyes: No Eye Pain, No Swelling, No Redness Cardiovascular : No Chest Pain, No SOB, No Dyspnea on Exertion, No Orthopnea, No Edema, No Palpitations Respiratory : No Cough, No Sputum, No Wheezing Gastrointestinal : + Nausea, + Vomiting, No Diarrhea, No Constipation, + abdominal Pain, No Hematochezia, No Melena Genitourinary : No Dysuria, No Urinary Frequency, No Hematuria, Musculoskeletal : No joint pain, No Myalgias, No Joint Swelling Skin : No Skin Lesions, No rash Neuro : No Weakness, No Numbness, No Dizziness, No Headache Psych : No Anxiety/Panic, No Depression All other systems reviewed and are negative Yes all other systems are reviewed and are negative REPLACED BY [facility] Past Medical History Attestation statement: The following information was validated with the patient. Source: old records reviewed and nursing notes reviewed Medical History Asthma COVID-19 Surgical History History of appendectomy History of axillary surgery History of axillary surgery (~2021) Family History Family History Brother Leukemia Social History Social History Alcohol intake: never Patient Tobacco Use Status: Never used Tobacco Advance Directives: No Advance Directives Information Provided: No Physical Exam ED Vital Signs: Vital Signs - 24 hr 01/31/23 14:16 01/31/23 15:13 Temperature 96.9 F 98.4 F Pulse Rate 77 69 Respiratory Rate 20 16 Blood Pressure 109/72 117/70 Pulse Oximetry 96 98 Oxygen Delivery Method Room Air Room Air BMI result Body Mass Index 30.7 Vital signs stable Appearance: Alert.? Oriented X3.? No acute distress.? Head: Normocephalic, atraumatic, no step-offs or deformities Eyes: Pupils equal, round and reactive to light.? ENT: Pharynx normal.? Neck: Normal inspection.? Neck supple.? CVS: Normal heart rate and rhythm.? Pulses normal.? Respiratory: No respiratory distress.? Breath sounds normal.? Abdomen: Soft, nondistended, tenderness to palpation of the suprapubic region, no rebound tenderness or guarding, normoactive bowel sounds throughout Skin: Skin warm and dry.? Normal skin color.? Normal skin turgor.? Extremities: No lower extremity edema.? No calf ttp. 5/5 strength to bilateral upper and lower extremities, negative Homans sign b/l Back: No midline tenderness, no C-spine tenderness, full range of motion, no CVA tenderness bilaterally Neuro: Oriented X 3.? No motor deficit.? No sensory deficit. CN 2-12 intact Course Course Course Narrative: This is a rapid medical exam: Additional HPI, ROS, PE not included below will be deferred to primary provider. Patient is a 37-year-old female with history of asthma, appendectomy, and hidradenitis suppurative presenting to the emergency department with complaint of lower abdominal pain for 2-3 days. Also reports ongoing intermittent right ankle pain related to a prior sprain. Reports vomiting at work the other day related to the pain. had diarrhea. Decreased appetite, able to tolerate fluids. Denies any fevers. Reports low back pain but states this is chronic. Abdomen is soft and mildly tender throughout, no CVA tenderness. Plan: UA, labs Reevaluation(s) Reevaluation #1: CBC with no acute findings. Chemistry unremarkable. HCG negative. Unlikely topic. Or intrauterine . UA without infection. Ankle x-ray unremarkable. CT abdomen pelvis pending. Pelvic ultrasound pending. Sign out tonight provider Lauren. Time: 16:42 Medical Decision Making Medical Decision Making [facility] Narrative: 1530 37-year-old female presents with suprapubic abdominal pain x3 days with nausea and vomiting. Additionally reports acute on chronic chronic ankle pain and swelling status post sprain 2 years ago Vital signs are stable, normal sinus rhythm, afebrile. Physical exam notable for tenderness to palpation of the suprapubic region, no rebound or guarding, normoactive BS throughout, no CVA tenderness. Right ankle without deformity, ecchymoses, edema, erythema. No tenderness noted over the lateral or medial malleolus or at the base of the 5th metatarsal. Clinical concern for ovarian cyst versus ovarian torsion, will obtain transvaginal ultrasound with Doppler flow to rule out. Patient's LMP was 2 weeks ago however reports unprotected intercourse, concern for intrauterine versus ectopic will rule out. Unlikely appendicitis this patient is status post appendectomy, no signs of acute abdomen, pancreatitis, obstruction, cholecystitis, cholangitis, choledocholithiasis. Possible ovarian cyst. Concern for musculoskeletal sprain/strain versus fracture versus dislocation. DVT less likely as patient is PERC negative. Low concern for septic joint, osteomyelitis, compartment syndrome, threat to limb, arterial occlusion. Plan: Labs, right ankle x-ray, imaging Differential Diagnosis Differential Diagnoses: The differential diagnosis associated with the presentation includes Clinical concern for ovarian cyst versus ovarian torsion, will obtain transv aginal ultrasound with Doppler flow to rule out. Patient's LMP was 2 weeks ago however reports unprotected intercourse, concern for intrauterine versus ectopic will rule out. Unlikely appendicitis this patient is status post appendectomy, no signs of acute abdomen, pancreatitis, obstruction, cholecystitis, cholangitis, choledocholithiasis. Possible ovarian cyst. Concern for musculoskeletal sprain/strain versus fracture versus dislocation. DVT less likely as patient is PERC negative. Low concern for septic joint, osteomyelitis, compartment syndrome, threat to limb, arterial occlusion. Admission/Observation Consideration of admission/observation: Escalation of care including admission/observation considered Unlikely Lab Data [facility] Lab Attestation statement: I reviewed the patient's lab results. 01/31/23 14:36 01/31/23 14:36 Labs: Lab Results 01/31/23 01/31/23 01/31/23 Range/Units 14:36 14:36 14:36 WBC 8.5 (4.8-10.8) X10*3/uL RBC 4.88 (4.20-5.50) X10*6/uL Hgb 12.3 (12.0-16.0) g/dl Hct 39.5 (37.0-47.0) % MCV 80.9 (80.0-98.0) fL MCH 25.2 L (27.0-33.0) pg MCHC 31.1 (31.0-35.0) g/dl RDW 13.4 (11.0-16.0) % Plt Count 348 (160-400) X10*3/uL MPV 10.8 (9.4-12.3) fL Immature Gran % (Auto) 0.4 (0.0-0.4) % Neut % (Auto) 62.4 (45-73) % Lymph % (Auto) 28.2 (20-40) % [place] % (Auto) 5.9 (2-11) % Eos % (Auto) 2.4 (0-4) % Baso % (Auto) 0.7 (0-2) % Lymph # (Auto) 2.4 (1.2-4.9) X10*3/uL [place] # (Auto) 0.5 (0.1-1.2) X10*3/uL Eos # (Auto) 0.2 (0.0-0.4) X10*3/uL Baso # (Auto) 0.1 (0.0-0.2) X10*3/uL Abs Immat Gran (auto) 0.03 (0.00-0.03) X10*3/uL Absolute Neuts (auto) 5.3 (2.0-8.3) x10*3/uL Absolute Nucleated RBC 0.000 (0.0-0.012) X10*3/uL Nucleated RBC % (auto) 0.0 (0.0-0.2) /100WBC Sodium 139 (135-145) mmol/L Potassium 4.1 (3.3-5.1) mmol/L Chloride 107 (96-108) mmol/L Carbon Dioxide 21 L (22-29) mmol/L Anion Gap 15 (12-20) BUN 13 (9-16) mg/dL Creatinine 0.76 (0.5-1.4) mg/dL Estim Creat Clear Calc 113.1 Estimated GFR > 60 Random Glucose 100 (60-115) mg/dL Calcium 9.4 (8.4-10.2) mg/dL Total Bilirubin 0.2 (0.0-1.0) mg/dL AST 17 (5-31) U/L ALT 23 (0-31) U/L Alkaline Phosphatase 68 (39-117) U/L Total Protein 8.3 H (6.5-8.0) g/dL Albumin 4.3 (3.5-5.0) g/dL Beta HCG, Quant < 2 mIU/mL Urine Color Urine Appearance Urine pH (5.0-9.0) Ur Specific [place] (1.005-1.025) Urine Protein (Neg-Trace) mg/dL Urine Glucose (UA) (Negative) mg/dL Urine Ketones (Negative) mg/dL Urine Blood (Negative) Urine Nitrite (Negative) Ur Leukocyte Esterase (Negative) 01/31/23 Range/Units 15:17 WBC (4.8-10.8) X10*3/uL RBC (4.20-5.50) X10*6/uL Hgb (12.0-16.0) g/dl Hct (37.0-47.0) % MCV (80.0-98.0) fL MCH (27.0-33.0) pg MCHC (31.0-35.0) g/dl RDW (11.0-16.0) % Plt Count (160-400) X10*3/uL MPV (9.4-12.3) fL Immature Gran % (Auto) (0.0-0.4) % Neut % (Auto) (45-73) % Lymph % (Auto) (20-40) % Latimer % (Auto) (2-11) % Eos % (Auto) (0-4) % Baso % (Auto) (0-2) % Lymph # (Auto) (1.2-4.9) X10*3/uL [place]imer # (Auto) (0.1-1.2) X10*3/uL Eos # (Auto) (0.0-0.4) X10*3/uL Baso # (Auto) (0.0-0.2) X10*3/uL Abs Immat Gran (auto) (0.00-0.03) X10*3/uL Absolute Neuts (auto) (2.0-8.3) x10*3/uL Absolute Nucleated RBC (0.0-0.012) X10*3/uL Nucleated RBC % (auto) (0.0-0.2) /100WBC Sodium (135-145) mmol/L Potassium (3.3-5.1) mmol/L Chloride (96-108) mmol/L Carbon Dioxide (22-29) mmol/L Anion Gap (12-20) BUN (9-16) mg/dL Creatinine (0.5-1.4) mg/dL Estim Creat Clear Calc Estimated GFR Random Glucose (60-115) mg/dL Calcium (8.4-10.2) mg/dL Total Bilirubin (0.0-1.0) mg/dL AST (5-31) U/L ALT (0-31) U/L Alkaline Phosphatase (39-117) U/L Total Protein (6.5-8.0) g/dL Albumin (3.5-5.0) g/dL Beta HCG, Quant mIU/mL Urine Color Yellow Urine Appearance Cloudy Urine pH 6.0 (5.0-9.0) Ur Specific [place] 1.025 (1.005-1.025) Urine Protein Negative (Neg-Trace) mg/dL Urine Glucose (UA) Negative (Negative) mg/dL Urine Ketones Negative (Negative) mg/dL Urine Blood Negative (Negative) Urine Nitrite Negative (Negative) Ur Leukocyte Esterase Negative (Negative) Independent Interpretation I performed an independent interpretation of an: Plain X-Ray (XR/XR ankle RT min 3V IMPRESSION: No acute fracture or dislocation.) Radiology Impression Discussion of test interpretation with radiology: I have reviewed the radi ologist's reading. External Record Review External record reviewed: Inpatient record, Office record, Outpatient record, Prior outpatient labs, Prior outpatient radiology, Primary care record and Outside ED record Prescription Management I considered prescription management with: Pain Medication Core Measures AMI core measures followed: Yes Measure exclusions: not indicated Critical Care Time Critical Care Time Critical Care Time: No Discharge Plan Discharge Clinical Impression: Lower abdominal pain, Ankle pain, right Patient Disposition: Still a Patient Prescriptions: No Action acetaminophen [Tylenol] 325 mg capsule 650 mg PO Q6H PRN (Reason: pain (scale score 4-6)) Qty: 30 2RF doxycycline hyclate 100 mg tablet 100 mg PO BID Qty: 20 0RF cyclobenzaprine 10 mg tablet 10 mg PO TID PRN (Reason: muscle spasm) Qty: 10 0RF ibuprofen 800 mg tablet 800 mg PO Q8H PRN (Reason: pain) Qty: 14 0RF prednisone 20 mg tablet 40 mg PO DAILY 5 Days Qty: 10 0RF lidocaine [Lidoderm] 5 % adhesive patch,medicated 1 patch topical DAILY Qty: 15 0RF Rx Instructions: leave on most painful area for up to 12 hrs ketorolac 10 mg tablet 10 mg PO TID 5 Days Qty: 15 0RF cyclobenzaprine 10 mg tablet 10 mg PO BEDTIME PRN (Reason: muscle spasm) Qty: 7 0RF lidocaine 5 % adhesive patch,medicated 1 patch topical DAILY PRN (Reason: pain) Qty: 15 0RF Rx Instructions: leave on most painful area for up to 12 hrs ondansetron 4 mg tablet,disintegrating 4 mg PO Q6-8H PRN (Reason: nausea and vomiting) Qty: 7 0RF amoxicillin-pot clavulanate 875-125 mg tablet 1 tab PO BID 7 Days Qty: 14 0RF cefuroxime axetil 500 mg tablet 500 mg PO BID 5 Days Qty: 10 0RF cyclobenzaprine 5 mg tablet 5 mg PO TID PRN (Reason: muscle spasm) Qty: 14 0RF naproxen 500 mg tablet 500 mg PO BID PRN (Reason: pain) Qty: 30 0RF lidocaine 4 % adhesive patch,medicated 1 patch topical TID PRN (Reason: pain) Qty: 10 0RF amoxicillin-pot clavulanate 875-125 mg tablet 1 tab PO BID 10 Days Qty: 20 0RF cyclobenzaprine 10 mg tablet 10 mg PO TID PRN (Reason: muscle spasm) Qty: 14 0RF naproxen 500 mg tablet 500 mg PO BID PRN (Reason: pain) Qty: 20 0RF lidocaine [Lidoderm] 5 % adhesive patch,medicated 1 patch topical DAILY Qty: 15 0RF Rx Instructions: leave on most painful area for up to 12 hrs
[2023-01-31 14:16] VITALS: BP 109/72; PULSE 77; RESP 20; TEMP 36.1; O2SAT 96; BMI 30.7
[2023-01-31 14:49] LABS: MANUAL DIFF FLAG NO
[2023-01-31 14:50] LABS: Basophils Absolute Auto 0.1 X10*3/uL (0.0-0.2); Basophils Percent Auto 0.7 % (0-2); Eosinophils Absolute Auto 0.2 X10*3/uL (0.0-0.4); Eosinophils Percent Auto 2.4 % (0-4); Hematocrit 39.5 % (37.0-47.0); Hemoglobin 12.3 g/dl (12.0-16.0); Imm Gran Abs Auto 0.03 X10*3/uL (0.00-0.03); Imm Gran Pct Auto 0.4 % (0.0-0.4); Lymphocytes Absolute Auto 2.4 X10*3/uL (1.2-4.9); Lymphocytes Percent Auto 28.2 % (20-40); Mean Corpuscular HGB Conc 31.1 g/dl (31.0-35.0); Mean Corpuscular Hemoglobin 25.2 pg (27.0-33.0); Mean Corpuscular Volume 80.9 fL (80.0-98.0); Mean Platelet Volume 10.8 fL (9.4-12.3); Monocytes Absolute Auto 0.5 X10*3/uL (0.1-1.2); Monocytes Percent Auto 5.9 % (2-11); Neutrophils Absolute Auto 5.3 x10*3/uL (2.0-8.3); Neutrophils Percent Auto 62.4 % (45-73); Platelet Count 348 X10*3/uL (160-400); Red Blood Count 4.88 X10*6/uL (4.20-5.50); Red Cell Distribution Width 13.4 % (11.0-16.0); White Blood Count 8.5 X10*3/uL (4.8-10.8)
[2023-01-31 15:04] LABS: Alanine Aminotransferase 23 U/L (0-31); Albumin Level 4.3 g/dL (3.5-5.0); Alkaline Phosphatase 68 U/L (39-117); Anion Gap 15 (12-20); Aspartate Amino Transferase 17 U/L (5-31); Bilirubin Total 0.2 mg/dL (0.0-1.0); Blood Urea Nitrogen 13 mg/dL (9-16); Calcium 9.4 mg/dL (8.4-10.2); Carbon Dioxide 21 mmol/L (22-29); Chloride 107 mmol/L (96-108); Creatinine Clr Calc Pharmacy 113.1; Estimated Glomerular Filt Rate > 60; Glucose Random 100 mg/dL (60-115); Potassium 4.1 mmol/L (3.3-5.1); Sodium 139 mmol/L (135-145); Total Protein 8.3 g/dL (6.5-8.0)
[2023-01-31 15:13] VITALS: BP 117/70; PULSE 69; RESP 16; TEMP 36.9; O2SAT 98
[2023-01-31 15:16] LABS: HCG Quantitative < 2 mIU/mL
[2023-01-31 15:25] LABS: Appearance Urine Cloudy; Color Urine Yellow; Glucose Urine UA Negative (Negative); Leukocyte Esterase Urine Negative (Negative); Nitrite Urine Negative (Negative); Specific Gravity - Urine 1.025 (1.005-1.025); Urine Blood Negative (Negative); Urine Ketones Negative (Negative); Urine Protein Negative (Neg-Trace)
[2023-01-31] MEDS: Ketorolac Tromethamine 30 MG/ML VIAL IM (17:22)
--- NOTE | 2023-01-31 17:39 | PC.NURSE ---
pt medicated per SEP for 10 LLQ and ankle pain.
[2023-01-31 19:11] VITALS: BP 114/78; PULSE 98; RESP 18; TEMP 36.6; O2SAT 98
--- NOTE | 2023-01-31 19:19 | PC.NURSE ---
this rn assumed care of pt @ 1900. pt calm and cooperative. vss. pt ambulatory at discharge. pt family at bedside. pt provided with discharge packet and work note. pt verbalized understanding of discharge plan
== END 2023-01-31 19:20 | disposition home or self-care (01) ==
PROVIDERS: Registered Nurse Emergency; Emergency Provider Student in an Organized Health Care Education/Training Program
DX: R10.30 Lower abdominal pain, unspecified (principal); M25.571 Pain in right ankle and joints of right foot; R11.2 Nausea with vomiting, unspecified; Z79.899 Other long term (current) drug therapy
CPT/HCPCS: 36415; 73610; 74177; 76830; 76856; 80053; 81003; 84702; 85025; 93975; 96372; 99284; J1885

== ENCOUNTER 2023-04-02 12:55 | Outpatient (AMB) | payer MEDICAID, SELFPAY ==
--- NOTE | 2023-04-02 12:57 | MHC.OFFVIS ---
Intake Vital Signs 04/02/23 13:09 Height 5 ft 6 in Weight 187 lb BMI 30.2 BP 128/83 Blood Pressure Location Lt brachial Position Sitting Pulse 80 Intake Visit Reasons: hidradenitis Intake Note: Patient is seen in office for follow up, following hidradenitis. Patient c/o: admits to redness, some discharge, under bilateral breast and groin area flare up for the past couple of months, admits to pain Resolution Manager Required: No Accompanied by: Self / Same As Patient Allergies No Known Allergies Allergy (Verified 04/02/23 12:59) Medication List - Last Reconciled 04/02/23 by Ron Gibbs MD acetaminophen (Tylenol) 650 mg (2 x 325 mg) PO Q6H PRN amoxicillin-pot clavulanate 875-125 mg 1 tab PO BID 7 days amoxicillin-pot clavulanate 875-125 mg 1 tab PO BID 10 days cefuroxime axetil 500 mg PO BID 5 days cyclobenzaprine 10 mg PO TID PRN cyclobenzaprine 10 mg PO BEDTIME PRN cyclobenzaprine 5 mg PO TID PRN cyclobenzaprine 10 mg PO TID PRN doxycycline hyclate 100 mg PO BID doxycycline monohydrate 100 mg PO BID ibuprofen 800 mg PO Q8H PRN ketorolac 10 mg PO TID 5 days lidocaine 5% (Lidoderm) 1 patch topical DAILY lidocaine 5% 1 patch topical DAILY PRN lidocaine 4% 1 patch topical TID PRN lidocaine 5% (Lidoderm) 1 patch topical DAILY naproxen 500 mg PO BID PRN naproxen 500 mg PO BID PRN ondansetron 4 mg PO Q6-8H PRN prednisone 40 mg (2 x 20 mg) PO DAILY 5 days HPI HPI Comments History of Present Illness Details 37-year-old female patient returning for re-evaluation of hidradenitis. She has a previous history of bilateral axillary hidradenitis and underwent bilateral axillary excisions for persistent drainage. She now complains of pain below the bilateral breast with similar skin changes as in her axilla. She has intermittent areas of pain, redness and discharge which subsequently resolved after draining. She presents today to discuss possible excision of these lesions. She denies previous evaluation by Dermatology for biologic treatment. [facility] Medical History COVID-19 Asthma Surgical History History of axillary surgery (~2020) History of axillary surgery History of appendectomy Family History Brother Leukemia Social History Alcohol intake: never Patient Tobacco Use Status: Never used Tobacco Review of Systems Const All systems reviewed & are unremarkable except as noted in HPI and below Denies chills, Denies fever(s), Denies malaise and Denies weakness Card Denies chest pain, Denies irregular heart rhythm and Denies palpitations Resp Denies chest congestion, Denies cough, Denies hemoptysis and Denies wheezing GI Denies no additional complaints Musc Denies no additional complaints Skin/Breast Reports as per HPI, Reports furuncle, Reports erythema, Reports skin pain and Reports skin swelling Neuro Denies weakness Endo Denies palpitations Aller/Immun Denies wheezing Physical Exam Vital Signs: Last Vital Signs Pulse 80 04/02/23 13:09 BP 128/83 04/02/23 13:09 BMI result Body Mass Index 30.2 Const General: healthy appearing and no acute distress Nutritional Appearance: well nourished Orientation/consciousness: patient oriented x3 Limitations: no limitations Chest Other: Bilateral axillary hidradenitis with incisions which are clean, dry and intact. No active disease identify this time. Examination bilateral breasts reveal areas of hidradenitis located below the inframammary crease bilaterally with multiple chronic scars but no evidence of abscess formation at this time. Extensive area of disease is identified below her breast tissue. Resp Effort & Inspection: normal respiratory effort GI Inspection: Yes normal to inspection Skin Other: As noted above in the inframammary crease and axilla Neuro General: patient oriented x3 Assessment & Plan Assessment & Plan (1) Hidradenitis suppurativa: Code(s): L73.2 - Hidradenitis suppurativa Plan 37-year-old female patient presenting with multiple areas of hidradenitis including chest wall and axilla with no current active disease or abscess. She may benefit from a dermatology consultation for consideration of biologic treatment. I would not recommend any surgical procedure at this time. She expressed understanding and agrees with the plan. Orders: Referrals Dermatology Referral L73.2 - Hidradenitis suppurativa Coding Level of Care Code Est Pt Level 3 (51896) Diagnoses Hidradenitis suppurativa L73.2
[2023-04-02 13:09] VITALS: BP 128/83; PULSE 80; BMI 30.2
== END 2023-04-02 13:24 | disposition home or self-care (01) ==
PROVIDERS: PCP Registered Nurse; Visit Provider Surgery
DX: L73.2 Hidradenitis suppurativa (principal)
CPT/HCPCS: 99213

== ENCOUNTER → 2023-04-02 12:55 | Outpatient (BNVA) | payer MEDICAID, SELFPAY | PROVIDERS: PCP Registered Nurse; Visit Provider Surgery | DX: L73.2 Hidradenitis suppurativa (principal) | CPT/HCPCS: 99212 ==

== ENCOUNTER 2023-06-15 13:17 | Emergency (ER) | payer MEDICAID, SELFPAY ==
[2023-06-15 13:26] VITALS: BP 140/87; PULSE 66; RESP 18; TEMP 36.1; O2SAT 98; BMI 31.0
--- NOTE | 2023-06-15 13:28 | ED_ITS ---
HPI - General Adult General Chief complaint: Abdominal Pain Stated complaint: Vomiting/Sore throat/Fever Time Seen by Provider: 06/15/23 16:25 History of Present Illness HPI narrative: Patient has had 2 days of some mild nausea couple of episodes of diarrhea a headache feeling body aches and fatigue, mild sore throat She has not vomited, she is not dizzy or weak at this time she does not have a headache she is not confused she has no stiff neck she has no chest pain or shortness of breath no productive cough no abdominal pain now although she did have some episodes of mild crampy pain earlier, no pain with urination no change in urination Related Data Previous Rx's Medication Instructions Recorded cyclobenzaprine 10 mg tablet 10 mg PO TID PRN muscle spasm #10 05/23/20 tabs ibuprofen 800 mg tablet 800 mg PO Q8H PRN pain #14 tabs 05/23/20 lidocaine 5 % topical patch 1 patch topical DAILY pain #15 ea 05/23/20 (Lidoderm) prednisone 20 mg tablet 40 mg (2 x 20 mg) PO DAILY 05/23/20 inflammation 5 days #10 tabs ketorolac 10 mg tablet 10 mg PO TID 5 days #15 tabs 04/22/21 acetaminophen 325 mg capsule 650 mg (2 x 325 mg) PO Q6H PRN 06/03/21 (Tylenol) pain (scale score 4-6) #30 caps doxycycline hyclate 100 mg tablet 100 mg PO BID Hidradenitis #20 06/04/21 tabs cyclobenzaprine 10 mg tablet 10 mg PO BEDTIME PRN muscle spasm 03/10/22 #7 tabs lidocaine 5 % topical patch 1 patch topical DAILY PRN pain #15 03/10/22 ea ondansetron 4 mg disintegrating 4 mg PO Q6-8H PRN nausea and 05/25/22 tablet vomiting #7 tabs cefuroxime axetil 500 mg tablet 500 mg PO BID 5 days #10 tabs 06/14/22 cyclobenzaprine 5 mg tablet 5 mg PO TID PRN muscle spasm #14 06/14/22 tabs lidocaine 4 % topical patch 1 patch topical TID PRN pain #10 ea 06/14/22 naproxen 500 mg tablet 500 mg PO BID PRN pain #30 tabs 06/14/22 amoxicillin 875 mg-potassium 1 tab PO BID 7 days #14 tabs 07/05/22 clavulanate 125 mg tablet amoxicillin 875 mg-potassium 1 tab PO BID dog bite 10 days #20 07/07/22 clavulanate 125 mg tablet tabs cyclobenzaprine 10 mg tablet 10 mg PO TID PRN muscle spasm #14 11/17/22 tabs lidocaine 5 % topical patch 1 patch topical DAILY #15 ea 11/17/22 (Lidoderm) naproxen 500 mg tablet 500 mg PO BID PRN pain #20 tabs 11/17/22 doxycycline monohydrate 100 mg 100 mg PO BID #14 caps 01/31/23 capsule Allergies Allergy/AdvReac Type Severity Reaction Status Date / Time No Known Allergies Allergy Verified 06/15/23 13:28 FORMERLY [facility], [facility] Past Medical History Source: nursing notes reviewed Medical History COVID-19 Asthma Surgical History History of axillary surgery (~2020) History of axillary surgery History of appendectomy Family History Family History Brother Leukemia Social History Social History Alcohol intake: never Patient Tobacco Use Status: Never used Tobacco Advance Directives: No Physical Exam ED Vital Signs: Vital Signs - 24 hr 06/15/23 13:26 Temperature 96.9 F Pulse Rate 66 Respiratory Rate 18 Blood Pressure 140/87 H Pulse Oximetry 98 Oxygen Delivery Method Room Air BMI result Body Mass Index 31.0 General appearance no distress comfortable, cooperative Eyes are anicteric no pallor The pharynx is clear no redness swelling or exudate mucous membranes are moist Neck is supple Chest is clear to auscultation bilateral Heart no murmur Abdomen soft nontender Extremities full range motion x4 Skin no rash Course Course Course Narrative: Patient complains of intermittent crampy belly pain some headache some sore throat some nausea but no vomiting no diarrhea for 1 day No abdominal pain She refused test, COVID and flu tests are ordered This is rapid medical exam done in triage pending full evaluation by ER provider COVID and flu tests are negative, patient is comfortable without any vomiting or diarrhea, tolerating p.o., headache is gone during ER visit Repeat abdominal exam is normal no tenderness no rebound no guarding Well-appearing patient diagnosed with viral illness and is discharged Medical Decision Making Lab Data Labs: Lab Results 06/15/23 Range/Units 13:37 COVID-19 (PHI) Negative (Negative) COVID-19 Clin Com See Note Influenza Type A (ALEJANDRA) Negative (Negative) Influenza Type B (ALEJANDRA) Negative (Negative) Influenza A & B Note See Note Discharge Plan Discharge Clinical Impression: Acute viral syndrome Patient Disposition: Home, Self-Care Additional Instructions: COVID and flu tests were negative Your abdomen was not tender, your well-appearing and able to tolerate fluids No sign of any dangerous or emergent condition Return any time for any worse condition or any concerns, drink plenty of fluids Prescriptions: No Action acetaminophen [Tylenol] 325 mg capsule 650 mg PO Q6H PRN (Reason: pain (scale score 4-6)) Qty: 30 2RF doxycycline hyclate 100 mg tablet 100 mg PO BID Qty: 20 0RF cyclobenzaprine 10 mg tablet 10 mg PO TID PRN (Reason: muscle spasm) Qty: 10 0RF ibuprofen 800 mg tablet 800 mg PO Q8H PRN (Reason: pain) Qty: 14 0RF prednisone 20 mg tablet 40 mg PO DAILY 5 Days Qty: 10 0RF lidocaine [Lidoderm] 5 % adhesive patch,medicated 1 patch topical DAILY Qty: 15 0RF Rx Instructions: leave on most painful area for up to 12 hrs ketorolac 10 mg tablet 10 mg PO TID 5 Days Qty: 15 0RF cyclobenzaprine 10 mg tablet 10 mg PO BEDTIME PRN (Reason: muscle spasm) Qty: 7 0RF lidocaine 5 % adhesive patch,medicated 1 patch topical DAILY PRN (Reason: pain) Qty: 15 0RF Rx Instructions: leave on most painful area for up to 12 hrs ondansetron 4 mg tablet,disintegrating 4 mg PO Q6-8H PRN (Reason: nausea and vomiting) Qty: 7 0RF amoxicillin-pot clavulanate 875-125 mg tablet 1 tab PO BID 7 Days Qty: 14 0RF cefuroxime axetil 500 mg tablet 500 mg PO BID 5 Days Qty: 10 0RF cyclobenzaprine 5 mg tablet 5 mg PO TID PRN (Reason: muscle spasm) Qty: 14 0RF naproxen 500 mg tablet 500 mg PO BID PRN (Reason: pain) Qty: 30 0RF lidocaine 4 % adhesive patch,medicated 1 patch topical TID PRN (Reason: pain) Qty: 10 0RF amoxicillin-pot clavulanate 875-125 mg tablet 1 tab PO BID 10 Days Qty: 20 0RF cyclobenzaprine 10 mg tablet 10 mg PO TID PRN (Reason: muscle spasm) Qty: 14 0RF naproxen 500 mg tablet 500 mg PO BID PRN (Reason: pain) Qty: 20 0RF lidocaine [Lidoderm] 5 % adhesive patch,medicated 1 patch topical DAILY Qty: 15 0RF Rx Instructions: leave on most painful area for up to 12 hrs doxycycline monohydrate 100 mg capsule 100 mg PO BID Qty: 14 0RF Stand Alone Forms: Work/School Release
[2023-06-15 13:58] LABS: COVID-19 Test Negative (Negative); IDNOW Serial# 58CA691E
[2023-06-15 14:00] LABS: IDNOW Serial# 9DB6401D; Influenza A Negative (Negative); Influenza B2 Negative (Negative)
== END 2023-06-15 16:48 | disposition home or self-care (01) ==
PROVIDERS: Physician Assistant Medical; Emergency Provider Emergency Medicine; PCP Registered Nurse
DX: B34.9 Viral infection, unspecified (principal); R11.0 Nausea; R19.7 Diarrhea, unspecified; Z11.52 Encounter for screening for COVID-19
CPT/HCPCS: 87502; 87635; 99282; 99283

== ENCOUNTER 2023-07-25 13:50 | Emergency (ER) | payer MEDICAID, SELFPAY ==
--- NOTE | 2023-07-25 13:58 | ED.GENADULT ---
HPI - General Adult General Chief complaint: Abdominal Pain Stated complaint: vomiting and growth on r hand Time Seen by Provider: 07/25/23 14:36 Source: patient Mode of arrival: ambulatory History of Present Illness HPI narrative: 38-year-old female who denies any sick contacts but presents with a couple episodes of nausea and vomiting associated with epigastric discomfort this morning after drinking Pepsi. She then reports that she had vomiting of a blackish brown emesis. At this time she is feeling much improved. Related Data Previous Rx's Medication Instructions Recorded cyclobenzaprine 10 mg tablet 10 mg PO TID PRN muscle spasm #10 05/23/20 tabs ibuprofen 800 mg tablet 800 mg PO Q8H PRN pain #14 tabs 05/23/20 lidocaine 5 % topical patch 1 patch topical DAILY pain #15 ea 05/23/20 (Lidoderm) prednisone 20 mg tablet 40 mg (2 x 20 mg) PO DAILY 05/23/20 inflammation 5 days #10 tabs ketorolac 10 mg tablet 10 mg PO TID 5 days #15 tabs 04/22/21 acetaminophen 325 mg capsule 650 mg (2 x 325 mg) PO Q6H PRN 06/03/21 (Tylenol) pain (scale score 4-6) #30 caps doxycycline hyclate 100 mg tablet 100 mg PO BID Hidradenitis #20 06/04/21 tabs cyclobenzaprine 10 mg tablet 10 mg PO BEDTIME PRN muscle spasm 03/10/22 #7 tabs lidocaine 5 % topical patch 1 patch topical DAILY PRN pain #15 03/10/22 ea ondansetron 4 mg disintegrating 4 mg PO Q6-8H PRN nausea and 05/25/22 tablet vomiting #7 tabs cefuroxime axetil 500 mg tablet 500 mg PO BID 5 days #10 tabs 06/14/22 cyclobenzaprine 5 mg tablet 5 mg PO TID PRN muscle spasm #14 06/14/22 tabs lidocaine 4 % topical patch 1 patch topical TID PRN pain #10 ea 06/14/22 naproxen 500 mg tablet 500 mg PO BID PRN pain #30 tabs 06/14/22 amoxicillin 875 mg-potassium 1 tab PO BID 7 days #14 tabs 07/05/22 clavulanate 125 mg tablet amoxicillin 875 mg-potassium 1 tab PO BID dog bite 10 days #20 07/07/22 clavulanate 125 mg tablet tabs cyclobenzaprine 10 mg tablet 10 mg PO TID PRN muscle spasm #14 11/17/22 tabs lidocaine 5 % topical patch 1 patch topical DAILY #15 ea 11/17/22 (Lidoderm) naproxen 500 mg tablet 500 mg PO BID PRN pain #20 tabs 11/17/22 doxycycline monohydrate 100 mg 100 mg PO BID #14 caps 01/31/23 capsule ondansetron 4 mg disintegrating 4 mg PO Q8H PRN nausea and 07/25/23 tablet vomiting 4 days #10 tabs Allergies Allergy/AdvReac Type Severity Reaction Status Date / Time No Known Allergies Allergy Verified 06/15/23 13:28 Review of Systems Review of Systems: Pertinent positives and negatives as stated in [facility] Past Medical History Source: nursing notes reviewed Onset Date is defined in the Problem List Problems that require an onset date and time if occurred within 24 hrs of arrival to the ED Aortic Dissection and Rupture; Neurologic impairment; Cardiopulmonary Arrest; Endotracheal Intubation; Insertion or Replacement of Mechanical Circulatory Assist Device Medical History COVID-19 Asthma Surgical History History of axillary surgery (~2020) History of axillary surgery History of appendectomy Family History Family History Brother Leukemia Social History Social History Alcohol intake: never Patient Tobacco Use Status: Never used Tobacco Use of substances other than those prescribed or required for medical reasons: No Advance Directives: No Advance Directives Information Provided: No Physical Exam ED Vital Signs: Vital Signs - 24 hr 07/25/23 13:59 Temperature 97.2 F Pulse Rate 91 Respiratory Rate 18 Blood Pressure 131/86 Pulse Oximetry 97 Oxygen Delivery Method Room Air BMI result Body Mass Index 30.9 VITAL SIGNS: Reviewed. GENERAL: Well developed, well nourished, in no acute distress. HEAD: Normocephalic/atraumatic EYES: PERRLA, EOMI EARS: Ext canals without abnormality NOSE: Nares patent bilateral OROPHARYNX: no oral lesions noted, posterior pharynx clear NECK: Supple, no adenopathy LUNGS: Normal breath sounds. No adventitious sounds or accessory muscle use. SpO2<97> CARDIOVASCULAR: Regular rate and rhythm without noted murmurs ABDOMEN: Soft, non-tender, non-distended with bowel sounds. MUSCULOSKELETAL: No tenderness, deformities, or effusions noted on gross inspection. EXTREMITIES: No cyanosis, clubbing or edema. RIGHT HAND: small, well-circumscribed mass at dorsum of wrist without overlying erythema or induration SKIN: Inspection of the skin reveals no rashes NEUROLOGIC: Alert and oriented x 4. Strength and sensation to light touch were grossly intact x 4. Course Course Course Narrative: This is a rapid medical exam: Additional HPI, ROS, PE not included below will be deferred to primary provider. Patient is a 38-year-old female with history of appendectomy, asthma presenting to the emergency department with complaint of nausea and vomiting since this morning. Reports emesis is black-brown in color. One episode of diarrhea this morning. Epigastric abdominal pain. Also complaining of a mass to dorsal aspect of right hand which she noted on Thursday, states pain is radiating up forearm. Denies chest pain/dyspnea. Plan: viral swabs, labs, UA Medications Administered Discontinued Medications Generic Name Dose Route Start Last Admin Trade Name Freq PRN Reason Stop Dose Admin Ondansetron HCl 4 mg 07/25/23 15:33 07/25/23 15:42 Ondansetron Odt 4 Mg Tab.Rapdis TRANSLINGU 07/25/23 15:34 4 mg ONCE ONE Administration Medical Decision Making Medical Decision Making [facility] Narrative: 38-year-old female with history and clinical presentation, DDX: Viral gastroenteritis, , UTI, no clinical suspicion for cholecystitis/appendicitis/obstruction or pancreatitis. Reviewed all investigations and hematologic indices do not demonstrate a leukocytosis/anemia/thrombocytopenia. Coagulation studies are within normal limits. Chemistry indices are negative for JAIRO/electrolytes/liver enzyme derangements. Beta hCG is undetectable. Urinalysis is negative for UTI or hematuria. Viral testing negative for COVID-19/influenza. Patient received Zofran and is tolerating oral intake, my interpretation is it patient may have experienced an isolated episode of nausea and vomiting or potentially experiencing a viral gastroenteritis. She is discharged with a prescription for Zofran. Differential Diagnosis Differential Diagnoses: The differential diagnosis associated with the presentation includes Please see the discussion above Admission/Observation Consideration of admission/observation: Escalation of care including admission/observation considered Lab Data MDM Lab Attestation statement: I reviewed the patient's lab results. Please see the discussion above 07/25/23 14:15 07/25/23 14:15 Labs: Lab Results 07/25/23 07/25/23 Range/Units 14:15 14:16 WBC 10.8 (4.8-10.8) X10*3/uL RBC 4.95 (4.20-5.50) X10*6/uL Hgb 12.6 (12.0-16.0) g/dl Hct 39.4 (37.0-47.0) % MCV 79.6 L (80.0-98.0) fL MCH 25.5 L (27.0-33.0) pg MCHC 32.0 (31.0-35.0) g/dl RDW 13.7 (11.0-16.0) % Plt Count 387 (160-400) X10*3/uL MPV 10.6 (9.4-12.3) fL Immature Gran % (Auto) 0.3 (0.0-0.4) % Neut % (Auto) 73.6 H (45-73) % Lymph % (Auto) 21.0 (20-40) % Humphreys % (Auto) 4.1 (2-11) % Eos % (Auto) 0.5 (0-4) % Baso % (Auto) 0.5 (0-2) % Lymph # (Auto) 2.3 (1.2-4.9) X10*3/uL Humphreys # (Auto) 0.4 (0.1-1.2) X10*3/uL Eos # (Auto) 0.1 (0.0-0.4) X10*3/uL Baso # (Auto) 0.1 (0.0-0.2) X10*3/uL Abs Immat Gran (auto) 0.03 (0.00-0.03) X10*3/uL Absolute Neuts (auto) 8.0 (2.0-8.3) x10*3/uL Absolute Nucleated RBC 0.000 (0.0-0.012) X10*3/uL Nucleated RBC % (auto) 0.0 (0.0-0.2) /100WBC PT 12.1 (11.1-13.3) SEC INR 1.0 (0.9-1.1) Sodium 142 (135-145) mmol/L Potassium 3.5 (3.3-5.1) mmol/L Chloride 107 (96-108) mmol/L Carbon Dioxide 26 (22-29) mmol/L Anion Gap 13 (12-20) BUN 8 L (9-16) mg/dL Creatinine 0.76 (0.5-1.4) mg/dL Estim Creat Clear Calc 112.5 Estimated GFR > 60 Random Glucose 105 (60-115) mg/dL Calcium 9.4 (8.4-10.2) mg/dL Total Bilirubin 0.4 (0.0-1.0) mg/dL AST 24 (5-31) U/L ALT 27 (0-31) U/L Alkaline Phosphatase 72 (39-117) U/L Total Protein 8.8 H (6.5-8.0) g/dL Albumin 4.5 (3.5-5.0) g/dL Beta HCG, Quant < 2 mIU/mL Urine Color Yellow Urine Appearance Cloudy Urine pH 8.0 (5.0-9.0) Ur Specific Gulliver 1.025 (1.005-1.025) Urine Protein 100 (2+) H (Neg-Trace) mg/dL Urine Glucose (UA) Negative (Negative) mg/dL Urine Ketones Trace (Negative) mg/dL Urine Blood Negative (Negative) Urine Nitrite Negative (Negative) Ur Leukocyte Esterase Negative (Negative) Urine RBC 0-2 (0-2) /HPF Urine WBC 0-5 (0-5) /HPF Ur Squamous Epith Cells 11-20 (0-2) /HPF Urine Bacteria Trace (None Seen) Hyaline Casts 0-2 (0-2) /LPF Urine Test NEGATIVE (NEGATIVE) COVID-19 (PHI) Negative (Negative) COVID-19 Clin Com See Note Influenza Type A (ALEJANDRA) Negative (Negative) Influenza Type B (ALEJANDRA) Negative (Negative) Influenza A & B Note See Note Blood Type A Positive Antibody Screen NEGATIVE External Record Review External record reviewed: Outpatient record, Prior outpatient labs and Prior outpatient radiology Critical Care Time Critical Care Time Critical Care Time: Yes Total Critical Care Time: 30 Attestation: I personally attest to this time spent taking care of the patient. Discharge Plan Discharge Clinical Impression: Gastroenteritis, Ganglion cyst Patient Disposition: Home, Self-Care Instructions: Ganglion Cysts (ED), Gastroenteritis (ED) Additional Instructions: 1. Recommend Tylenol or ibuprofen for pain 2. Please follow-up with primary care doctor on Thursday morning. Return to the ER for any worsening symptoms. Prescriptions: New ondansetron 4 mg tablet,disintegrating 4 mg PO Q8H PRN (Reason: nausea and vomiting) 4 Days Qty: 10 0RF No Action acetaminophen [Tylenol] 325 mg capsule 650 mg PO Q6H PRN (Reason: pain (scale score 4-6)) Qty: 30 2RF doxycycline hyclate 100 mg tablet 100 mg PO BID Qty: 20 0RF cyclobenzaprine 10 mg tablet 10 mg PO TID PRN (Reason: muscle spasm) Qty: 10 0RF ibuprofen 800 mg tablet 800 mg PO Q8H PRN (Reason: pain) Qty: 14 0RF prednisone 20 mg tablet 40 mg PO DAILY 5 Days Qty: 10 0RF lidocaine [Lidoderm] 5 % adhesive patch,medicated 1 patch topical DAILY Qty: 15 0RF Rx Instructions: leave on most painful area for up to 12 hrs ketorolac 10 mg tablet 10 mg PO TID 5 Days Qty: 15 0RF cyclobenzaprine 10 mg tablet 10 mg PO BEDTIME PRN (Reason: muscle spasm) Qty: 7 0RF lidocaine 5 % adhesive patch,medicated 1 patch topical DAILY PRN (Reason: pain) Qty: 15 0RF Rx Instructions: leave on most painful area for up to 12 hrs ondansetron 4 mg tablet,disintegrating 4 mg PO Q6-8H PRN (Reason: nausea and vomiting) Qty: 7 0RF amoxicillin-pot clavulanate 875-125 mg tablet 1 tab PO BID 7 Days Qty: 14 0RF cefuroxime axetil 500 mg tablet 500 mg PO BID 5 Days Qty: 10 0RF cyclobenzaprine 5 mg tablet 5 mg PO TID PRN (Reason: muscle spasm) Qty: 14 0RF naproxen 500 mg tablet 500 mg PO BID PRN (Reason: pain) Qty: 30 0RF lidocaine 4 % adhesive patch,medicated 1 patch topical TID PRN (Reason: pain) Qty: 10 0RF amoxicillin-pot clavulanate 875-125 mg tablet 1 tab PO BID 10 Days Qty: 20 0RF cyclobenzaprine 10 mg tablet 10 mg PO TID PRN (Reason: muscle spasm) Qty: 14 0RF naproxen 500 mg tablet 500 mg PO BID PRN (Reason: pain) Qty: 20 0RF lidocaine [Lidoderm] 5 % adhesive patch,medicated 1 patch topical DAILY Qty: 15 0RF Rx Instructions: leave on most painful area for up to 12 hrs doxycycline monohydrate 100 mg capsule 100 mg PO BID Qty: 14 0RF Referrals: Susan Nagy FNP [Primary Care Provider] -
[2023-07-25 13:59] VITALS: BP 131/86; PULSE 91; RESP 18; TEMP 36.2; O2SAT 97; BMI 30.9
[2023-07-25 14:23] LABS: MANUAL DIFF FLAG NO
[2023-07-25 14:27] LABS: Basophils Absolute Auto 0.1 X10*3/uL (0.0-0.2); Basophils Percent Auto 0.5 % (0-2); Eosinophils Absolute Auto 0.1 X10*3/uL (0.0-0.4); Eosinophils Percent Auto 0.5 % (0-4); Hematocrit 39.4 % (37.0-47.0); Hemoglobin 12.6 g/dl (12.0-16.0); Imm Gran Abs Auto 0.03 X10*3/uL (0.00-0.03); Imm Gran Pct Auto 0.3 % (0.0-0.4); Lymphocytes Absolute Auto 2.3 X10*3/uL (1.2-4.9); Mean Corpuscular Hemoglobin 25.5 pg (27.0-33.0); Mean Corpuscular Volume 79.6 fL (80.0-98.0); Mean Platelet Volume 10.6 fL (9.4-12.3); Monocytes Absolute Auto 0.4 X10*3/uL (0.1-1.2); Monocytes Percent Auto 4.1 % (2-11); Neutrophils Percent Auto 73.6 % (45-73); Platelet Count 387 X10*3/uL (160-400); Red Blood Count 4.95 X10*6/uL (4.20-5.50); Red Cell Distribution Width 13.7 % (11.0-16.0); White Blood Count 10.8 X10*3/uL (4.8-10.8)
[2023-07-25 14:28] LABS: Appearance Urine Cloudy; Color Urine Yellow; Glucose Urine UA Negative (Negative); Leukocyte Esterase Urine Negative (Negative); Nitrite Urine Negative (Negative); Specific Gravity - Urine 1.025 (1.005-1.025); UMIC TRIGGER UACC YES; Urine Blood Negative (Negative); Urine Ketones Trace mg/dL (Negative); Urine Protein 100 (2+) mg/dL (Neg-Trace)
[2023-07-25 14:30] LABS: Prothrombin Time 12.1 SEC (11.1-13.3)
[2023-07-25 14:31] LABS: Bacteria Urine Trace (None Seen); Hyaline Casts Urine 0-2 /LPF (0-2); RBC Urine 0-2 /HPF (0-2); WBC Urine 0-5 /HPF (0-5)
[2023-07-25 14:42] LABS: Alanine Aminotransferase 27 U/L (0-31); Albumin Level 4.5 g/dL (3.5-5.0); Alkaline Phosphatase 72 U/L (39-117); Anion Gap 13 (12-20); Aspartate Amino Transferase 24 U/L (5-31); Bilirubin Total 0.4 mg/dL (0.0-1.0); Blood Urea Nitrogen 8 mg/dL (9-16); Calcium 9.4 mg/dL (8.4-10.2); Carbon Dioxide 26 mmol/L (22-29); Chloride 107 mmol/L (96-108); Creatinine Clr Calc Pharmacy 112.5; Estimated Glomerular Filt Rate > 60; Glucose Random 105 mg/dL (60-115); Potassium 3.5 mmol/L (3.3-5.1); Sodium 142 mmol/L (135-145); Total Protein 8.8 g/dL (6.5-8.0)
[2023-07-25 14:43] LABS: HCG Quantitative < 2 mIU/mL
[2023-07-25 14:51] LABS: COVID-19 Test Negative (Negative); IDNOW Serial# 08D9AD1C; IDNOW Serial# 152EDE1D; Influenza A Negative (Negative); Influenza B2 Negative (Negative)
[2023-07-25 14:59] LABS: UPreg QC Valid YES; Urine Pregnancy NEGATIVE (NEGATIVE)
[2023-07-25] MEDS: Ondansetron ODT 4 MG TAB.RAPDIS TRANSLINGU (15:42)
== END 2023-07-25 16:28 | disposition home or self-care (01) ==
PROVIDERS: Registered Nurse Emergency; Emergency Provider Student in an Organized Health Care Education/Training Program; PCP Registered Nurse
DX: K52.9 Noninfective gastroenteritis and colitis, unspecified (principal); R11.2 Nausea with vomiting, unspecified; M67.431 Ganglion, right wrist; Z11.52 Encounter for screening for COVID-19
CPT/HCPCS: 80053; 81001; 81025; 84702; 85025; 85610; 86850; 86900; 86901; 87502; 87635; 99283; 99284

== ENCOUNTER 2023-09-05 13:24 | Emergency (ER) | payer MEDICAID, SELFPAY ==
[2023-09-05 13:30] VITALS: BP 108/74; PULSE 80; RESP 18; TEMP 36.4; O2SAT 99; BMI 31.8
--- NOTE | 2023-09-05 13:32 | ED_ITS ---
HPI - General Adult General Chief complaint: Extremity Injury, Lower Stated complaint: back inj at work Time Seen by Provider: 09/05/23 13:34 Source: patient, RN notes reviewed and old records reviewed Mode of arrival: ambulatory Limitations: no limitations History of Present Illness HPI narrative: 38-year-old female presents for evaluation of left lower back pain. Patient reports the pain started 3 days ago. 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 her left lower back The pain goes across her lower back occasionally down the leg Denies numbness tingling Her pain is a 9/10 Denies any leg weakness, bladder or bowel incontinence Related Data Previous Rx's Medication Instructions Recorded cyclobenzaprine 10 mg tablet 10 mg PO TID PRN muscle spasm #10 05/23/20 tabs ibuprofen 800 mg tablet 800 mg PO Q8H PRN pain #14 tabs 05/23/20 lidocaine 5 % topical patch 1 patch topical DAILY pain #15 ea 05/23/20 (Lidoderm) prednisone 20 mg tablet 40 mg (2 x 20 mg) PO DAILY 05/23/20 inflammation 5 days #10 tabs ketorolac 10 mg tablet 10 mg PO TID 5 days #15 tabs 04/22/21 acetaminophen 325 mg capsule 650 mg (2 x 325 mg) PO Q6H PRN 06/03/21 (Tylenol) pain (scale score 4-6) #30 caps doxycycline hyclate 100 mg tablet 100 mg PO BID Hidradenitis #20 06/04/21 tabs cyclobenzaprine 10 mg tablet 10 mg PO BEDTIME PRN muscle spasm 03/10/22 #7 tabs lidocaine 5 % topical patch 1 patch topical DAILY PRN pain #15 03/10/22 ea ondansetron 4 mg disintegrating 4 mg PO Q6-8H PRN nausea and 05/25/22 tablet vomiting #7 tabs cefuroxime axetil 500 mg tablet 500 mg PO BID 5 days #10 tabs 06/14/22 cyclobenzaprine 5 mg tablet 5 mg PO TID PRN muscle spasm #14 06/14/22 tabs lidocaine 4 % topical patch 1 patch topical TID PRN pain #10 ea 06/14/22 naproxen 500 mg tablet 500 mg PO BID PRN pain #30 tabs 06/14/22 amoxicillin 875 mg-potassium 1 tab PO BID 7 days #14 tabs 07/05/22 clavulanate 125 mg tablet amoxicillin 875 mg-potassium 1 tab PO BID dog bite 10 days #20 07/07/22 clavulanate 125 mg tablet tabs cyclobenzaprine 10 mg tablet 10 mg PO TID PRN muscle spasm #14 11/17/22 tabs lidocaine 5 % topical patch 1 patch topical DAILY #15 ea 11/17/22 (Lidoderm) naproxen 500 mg tablet 500 mg PO BID PRN pain #20 tabs 11/17/22 doxycycline monohydrate 100 mg 100 mg PO BID #14 caps 01/31/23 capsule ondansetron 4 mg disintegrating 4 mg PO Q8H PRN nausea and 07/25/23 tablet vomiting 4 days #10 tabs cyclobenzaprine 10 mg tablet 10 mg PO TID PRN muscle spasm #15 09/05/23 tabs dexamethasone 4 mg tablet 4 mg PO BID #6 tabs 09/05/23 Allergies Allergy/AdvReac Type Severity Reaction Status Date / Time No Known Allergies Allergy Verified 09/05/23 13:34 Review of Systems Musculoskeletal: Musculoskeletal: Reports back pain, Denies numbness and Denies tingling Neurologic: Denies numbness and Denies tingling PMFSH Past Medical History Medical History COVID-19 Asthma Surgical History History of axillary surgery (~2020) History of axillary surgery History of appendectomy Family History Family History Brother Leukemia Social History Social History Alcohol intake: never Patient Tobacco Use Status: Never used Tobacco Physical Exam ED Vital Signs: Vital Signs - 24 hr 09/05/23 13:30 Temperature 97.6 F Pulse Rate 80 Respiratory Rate 18 Blood Pressure 108/74 Pulse Oximetry 99 Oxygen Delivery Method Room Air BMI result Body Mass Index 31.8 Const General: healthy appearing, comfortable, no acute distress, alert and awake Nutritional Appearance: well nourished Orientation/consciousness: patient oriented x3 HENMT Head: Yes normocephalic and Yes atraumatic Eyes Eyelids: Yes eyelids normal Conjunctivae: conjunctivae normal Sclerae: sclerae normal Corneas: corneas normal Pupils: Equal, round and reactive pupils present EOM: EOMs intact bilaterally Neck Neck: Yes full ROM Resp Effort & Inspection: normal respiratory effort, able to speak in complete sentences and not labored Back/Spine/Pelvis Other: Tenderness in the left lumbosacral region. No focal vertebral tenderness. Straight leg raise positive on the left. Skin General skin exam: elasticity normal Neuro General: patient oriented x3 Cranial nerves: Yes Equal, round and reactive pupils present and Yes Bilaterally intact EOM present Cognition (Neuro): normal cognition Motor exam (neuro): 5/5 motor strength present throughout Extrem Other: Moving all extremities well without any obvious deformities Medical Decision Making Medical Decision Making [facility] Narrative: [age] old female presents for evaluation of 3 days of left lower back pain that radiates down her leg. 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 No warning signs for cauda equina syndrome. Plan for symptomatic treatment and discharge Differential Diagnosis Differential Diagnoses: The differential diagnosis associated with the presentation includes Sciatica Lower back pain Muscle spasm Radiculopathy Discharge Plan Discharge Clinical Impression: Acute left-sided back pain with sciatica Patient Disposition: Home, Self-Care Instructions: Sciatica (ED) Additional Instructions: Your pain is most likely related to a pulled muscle. Use ibuprofen/Tylenol for pain. Take dexamethasone twice daily for the next 3 days Use cyclobenzaprine as needed for muscle spasms This may make you sleepy, do not drink alcohol or drive after taking it Return for new or worsening symptoms Prescriptions: New dexamethasone 4 mg tablet 4 mg PO BID Qty: 6 0RF cyclobenzaprine 10 mg tablet 10 mg PO TID PRN (Reason: muscle spasm) Qty: 15 0RF No Action acetaminophen [Tylenol] 325 mg capsule 650 mg PO Q6H PRN (Reason: pain (scale score 4-6)) Qty: 30 2RF doxycycline hyclate 100 mg tablet 100 mg PO BID Qty: 20 0RF cyclobenzaprine 10 mg tablet 10 mg PO TID PRN (Reason: muscle spasm) Qty: 10 0RF ibuprofen 800 mg tablet 800 mg PO Q8H PRN (Reason: pain) Qty: 14 0RF prednisone 20 mg tablet 40 mg PO DAILY 5 Days Qty: 10 0RF lidocaine [Lidoderm] 5 % adhesive patch,medicated 1 patch topical DAILY Qty: 15 0RF Rx Instructions: leave on most painful area for up to 12 hrs ketorolac 10 mg tablet 10 mg PO TID 5 Days Qty: 15 0RF cyclobenzaprine 10 mg tablet 10 mg PO BEDTIME PRN (Reason: muscle spasm) Qty: 7 0RF lidocaine 5 % adhesive patch,medicated 1 patch topical DAILY PRN (Reason: pain) Qty: 15 0RF Rx Instructions: leave on most painful area for up to 12 hrs ondansetron 4 mg tablet,disintegrating 4 mg PO Q6-8H PRN (Reason: nausea and vomiting) Qty: 7 0RF amoxicillin-pot clavulanate 875-125 mg tablet 1 tab PO BID 7 Days Qty: 14 0RF cefuroxime axetil 500 mg tablet 500 mg PO BID 5 Days Qty: 10 0RF cyclobenzaprine 5 mg tablet 5 mg PO TID PRN (Reason: muscle spasm) Qty: 14 0RF naproxen 500 mg tablet 500 mg PO BID PRN (Reason: pain) Qty: 30 0RF lidocaine 4 % adhesive patch,medicated 1 patch topical TID PRN (Reason: pain) Qty: 10 0RF amoxicillin-pot clavulanate 875-125 mg tablet 1 tab PO BID 10 Days Qty: 20 0RF ondansetron 4 mg tablet,disintegrating 4 mg PO Q8H PRN (Reason: nausea and vomiting) 4 Days Qty: 10 0RF cyclobenzaprine 10 mg tablet 10 mg PO TID PRN (Reason: muscle spasm) Qty: 14 0RF naproxen 500 mg tablet 500 mg PO BID PRN (Reason: pain) Qty: 20 0RF lidocaine [Lidoderm] 5 % adhesive patch,medicated 1 patch topical DAILY Qty: 15 0RF Rx Instructions: leave on most painful area for up to 12 hrs doxycycline monohydrate 100 mg capsule 100 mg PO BID Qty: 14 0RF Stand Alone Forms: Work/School Release
== END 2023-09-05 13:46 | disposition home or self-care (01) ==
LOC: HO.ED 13:45
PROVIDERS: Emergency Provider Emergency Medicine Emergency Medical Services; PCP Registered Nurse
DX: M54.32 Sciatica, left side (principal); M54.50 Low back pain, unspecified
CPT/HCPCS: 99282; 99283

== ENCOUNTER 2024-02-01 15:33 | Emergency (ER) | payer MEDICAID, SELFPAY ==
--- NOTE | ~2024-02-01 | CT_ITS ---
EXAMINATION: CT head/brain wo IV con CLINICAL INFORMATION: Reason for Exam headache, COMPARISON: CT head without contrast 03/10/2022 TECHNIQUE: Contiguous axial imaging was performed from the skull base to vertex without intravenous contrast. Sagittal and coronal reformatted images were obtained. This CT examination was performed using dose optimization techniques as appropriate, variously including the following: * Automated exposure control * Adjustment of mA and/or kV according to patient size (this includes techniques or standardized protocols for targeted exams where dose is matched to indication/reason for exam; i.e. extremities or head) Use of iterative reconstruction technique DLP: 610.54 mGy-cm FINDINGS: No acute osseous or soft tissue abnormality. The mastoid air cells and visualized portions of the paranasal sinuses are well aerated. There is no evidence of acute intracranial hemorrhage or territorial infarction. No abnormal mass effect or midline shift is seen. Waterman to white matter differentiation is well preserved. No extra-axial fluid collections are identified. No hydrocephalus. No significant volume loss. There is no abnormal attenuation within the brain parenchyma. CT/CT head/brain wo IV con IMPRESSION: No acute intracranial abnormality including hemorrhage, mass effect, hydrocephalus, or acute territorial edematous infarction.
[2024-02-01 15:58] VITALS: PULSE 74; RESP 16; TEMP 36.6; O2SAT 97; BMI 30.7
--- NOTE | 2024-02-01 15:58 | ED_ITS ---
HPI - Headache General Chief Complaint: Head Injury Stated Complaint: headache Time Seen by Provider: 02/01/24 17:19 Source: patient Mode of arrival: ambulatory Limitations: no limitations History of Present Illness ED Provider: Ba Reynolds PA-C HPI Narrative: 38 yo female presents to the ER for evaluation of frequent frontal headaches after a head injury 2 months ago. She reports they have been happening almost daily, no improvement with tylenol. pain is throbbing. no weakness, numbness, tingling, vision changes, N/V, gait instability. no chest pain or sob. had CT scan of her head after the injury. she does not have a neurologist. MD elicited complaint: headache Pertinent past history: recent trauma Onset (ago): month(s) (2) Onset description: gradually Location: frontal Severity: moderate Quality & Timing: throbbing Exacerbating factors: none Relieving factors: nothing Context: recent head injury Treatments prior to arrival: acetaminophen Related Data Previous Rx's ?Medication ?Instructions ?Recorded cyclobenzaprine 10 mg tablet 10 mg PO TID PRN muscle spasm #10 05/23/20 tabs ibuprofen 800 mg tablet 800 mg PO Q8H PRN pain #14 tabs 05/23/20 lidocaine 5 % topical patch 1 patch topical DAILY pain #15 ea 05/23/20 (Lidoderm) prednisone 20 mg tablet 40 mg (2 x 20 mg) PO DAILY 05/23/20 inflammation 5 days #10 tabs ketorolac 10 mg tablet 10 mg PO TID 5 days #15 tabs 04/22/21 acetaminophen 325 mg capsule 650 mg (2 x 325 mg) PO Q6H PRN 06/03/21 (Tylenol) pain (scale score 4-6) #30 caps doxycycline hyclate 100 mg tablet 100 mg PO BID Hidradenitis #20 06/04/21 tabs cyclobenzaprine 10 mg tablet 10 mg PO BEDTIME PRN muscle spasm 03/10/22 #7 tabs lidocaine 5 % topical patch 1 patch topical DAILY PRN pain #15 03/10/22 ea ondansetron 4 mg disintegrating 4 mg PO Q6-8H PRN nausea and 05/25/22 tablet vomiting #7 tabs cefuroxime axetil 500 mg tablet 500 mg PO BID 5 days #10 tabs 06/14/22 cyclobenzaprine 5 mg tablet 5 mg PO TID PRN muscle spasm #14 06/14/22 tabs lidocaine 4 % topical patch 1 patch topical TID PRN pain #10 ea 06/14/22 naproxen 500 mg tablet 500 mg PO BID PRN pain #30 tabs 06/14/22 amoxicillin 875 mg-potassium 1 tab PO BID 7 days #14 tabs 07/05/22 clavulanate 125 mg tablet amoxicillin 875 mg-potassium 1 tab PO BID dog bite 10 days #20 07/07/22 clavulanate 125 mg tablet tabs cyclobenzaprine 10 mg tablet 10 mg PO TID PRN muscle spasm #14 11/17/22 tabs lidocaine 5 % topical patch 1 patch topical DAILY #15 ea 11/17/22 (Lidoderm) naproxen 500 mg tablet 500 mg PO BID PRN pain #20 tabs 11/17/22 doxycycline monohydrate 100 mg 100 mg PO BID #14 caps 01/31/23 capsule ondansetron 4 mg disintegrating 4 mg PO Q8H PRN nausea and 07/25/23 tablet vomiting 4 days #10 tabs cyclobenzaprine 10 mg tablet 10 mg PO TID PRN muscle spasm #15 09/05/23 tabs dexamethasone 4 mg tablet 4 mg PO BID #6 tabs 09/05/23 [id number] 1 tab PO Q6H PRN headache #10 tabs 02/01/24 50 mg-325 mg-40 mg tablet Allergies Allergy/AdvReac Type Severity Reaction Status Date / Time No Known Allergies Allergy Verified 02/01/24 15:59 Review of Systems 2 Review of Systems: Yes all other systems are reviewed and are negative [facility] Past Medical History Medical History COVID-19 Asthma Surgical History History of axillary surgery (~2020) History of axillary surgery History of appendectomy Family History Family History Brother Leukemia Social History Social History Alcohol intake: never Patient Tobacco Use Status: Never used Tobacco Advance Directives: No Advance Directives Information Provided: No Physical Exam 2 Vital Signs: Vital Signs: Last Vital Signs Temp 97.8 F 02/01/24 18:29 Pulse 74 02/01/24 18:29 Resp 16 02/01/24 18:29 BP 0/0 L 02/01/24 18:29 Pulse Ox 97 02/01/24 18:29 O2 Del Method Room Air 02/01/24 18:29 BMI result Body Mass Index 30.7 Appearance: Alert. Oriented X3. No acute distress. Head: normocephalic, atraumatic. Eyes: Pupils equal, round and reactive to light. ENT: Pharynx normal. No tonsillar swelling or exudate. Neck: Normal inspection. Neck supple. CVS: Normal heart rate and rhythm. Pulses normal. Respiratory: No respiratory distress. Breath sounds normal. Abdomen: Soft and nontender. +BS x4 Skin: Skin warm and dry. Normal skin color. Normal skin turgor. No rashes. Extremities: No lower extremity edema. No joint swelling. Neuro/psych: Oriented X 3. No motor deficit. No sensory deficit. CN II-XII intact. Normal speech and cognition. Course Course Course Narrative: This is an RME: Additional HPI, ROS, PE not included below will be deferred to primary provider. RME assessment and note performed by: Shea Hawk PA-C This is a [id number]-yrmb-fee-female who presents to the ER with complaints of headache and lightheadedness. She states that her father and she struck her head on a brick wall 2 months ago. Has had pain since. Pain is frontal. Has tried motrin. Reporting fevers of 100 degrees last night. Plan: Labs, CT, viral swabs, further ER eval needed. Medical Decision Making Medical Decision Making [facility] Narrative: 38 yo female presenting with headaches for the last 2 months. occurring almost daily. no neurologic symptoms. exam is benign. labs and CT head are unremarkable. she is comfortable laying in the stretcher with her son. she has tried OTC tylenol and motrin with only brief relief. will give fiorcet a trial and have her f/u with PCP for possible neurology referral. stable for d/c home with outpatient follow up. Differential Diagnosis Differential Diagnoses: The differential diagnosis associated with the presentation includes post consussion headache, tension headache, migraines, cluster headache, viral syndrome, TBI Lab Data [facility] Lab Attestation statement: I reviewed the patient's lab results. no anemia, no major metabolic derangement 02/01/24 16:23 02/01/24 16:23 Labs: Lab Results 02/01/24 Range/Units 16:23 WBC 6.1 (4.8-10.8) X10*3/uL RBC 4.87 (4.20-5.50) X10*6/uL Hgb 12.4 (12.0-16.0) g/dl Hct 38.9 (37.0-47.0) % MCV 79.9 L (80.0-98.0) fL MCH 25.5 L (27.0-33.0) pg MCHC 31.9 (31.0-35.0) g/dl RDW 13.3 (11.0-16.0) % Plt Count 382 (160-400) X10*3/uL MPV 9.8 (9.4-12.3) fL Immature Gran % (Auto) 0.5 H (0.0-0.4) % Neut % (Auto) 69.6 (45-73) % Lymph % (Auto) 20.5 (20-40) % [place] % (Auto) 7.7 (2-11) % Eos % (Auto) 1.0 (0-4) % Baso % (Auto) 0.7 (0-2) % Lymph # (Auto) 1.3 (1.2-4.9) X10*3/uL [place] # (Auto) 0.5 (0.1-1.2) X10*3/uL Eos # (Auto) 0.1 (0.0-0.4) X10*3/uL Baso # (Auto) 0.0 (0.0-0.2) X10*3/uL Abs Immat Gran (auto) 0.03 (0.00-0.03) X10*3/uL Absolute Neuts (auto) 4.3 (2.0-8.3) x10*3/uL Absolute Nucleated RBC 0.000 (0.0-0.012) X10*3/uL Nucleated RBC % (auto) 0.0 (0.0-0.2) /100WBC Sodium 138 (135-145) mmol/L Potassium 4.1 (3.3-5.1) mmol/L Chloride 105 (96-108) mmol/L Carbon Dioxide 25 (22-29) mmol/L Anion Gap 12 (12-20) BUN 9 (9-16) mg/dL Creatinine 0.88 (0.5-1.4) mg/dL Estim Creat Clear Calc 96.9 Estimated GFR > 60 Random Glucose 91 (60-115) mg/dL Calcium 9.5 (8.4-10.2) mg/dL Magnesium 2.0 (1.6-2.6) mg/dL Total Bilirubin 0.4 (0.0-1.0) mg/dL Direct Bilirubin 0.1 (0.0-0.5) mg/dL AST 27 (5-31) U/L ALT 35 H (0-31) U/L Alkaline Phosphatase 87 (39-117) U/L Troponin I High Sens < 2.7 (<3.5-17.0) ng/L Total Protein 8.4 H (6.5-8.0) g/dL Albumin 4.3 (3.5-5.0) g/dL Influenza Type A (PCR) NEGATIVE (Negative) Influenza Type B (PCR) NEGATIVE (Negative) RSV RNA Qual (PCR) NEGATIVE (Negative) SARS-CoV-2 RNA (RT-PCR) NEGATIVE (Negative) Independent Interpretation I performed an independent interpretation of an: CT Scan Interpretation: no acute edema or bleed, agree w/ radiology read Radiology Impression Discussion of test interpretation with radiology: I have reviewed the radiologist's reading. Radiologist Impression: EXAMINATION: CT head/brain wo IV con CLINICAL INFORMATION: Reason for Exam headache, COMPARISON: CT head without contrast 03/10/2022 TECHNIQUE: Contiguous axial imaging was performed from the skull base to vertex without intravenous contrast. Sagittal and coronal reformatted images were obtained. This CT examination was performed using dose optimization techniques as appropriate, variously including the following: * Automated exposure control * Adjustment of mA and/or kV according to patient size (this includes techniques or standardized protocols for targeted exams where dose is matched to indication/reason for exam; i.e. extremities or head) Use of iterative reconstruction technique DLP: 610.54 mGy-cm FINDINGS: No acute osseous or soft tissue abnormality. The mastoid air cells and visualized portions of the paranasal sinuses are well aerated. There is no evidence of acute intracranial hemorrhage or territorial infarction. No abnormal mass effect or midline shift is seen. Waterman to white matter differentiation is well preserved. No extra-axial fluid collections are identified. No hydrocephalus. No significant volume loss. There is no abnormal attenuation within the brain parenchyma. CT/CT head/brain wo IV con IMPRESSION: No acute intracranial abnormality including hemorrhage, mass effect, hydrocephalus, or acute territorial edematous infarction. External Record Review External record reviewed: Office record, Outpatient record, Prior outpatient labs and Prior outpatient radiology Prescription Management I considered prescription management with: Pain Medication Chronic Conditions Patient?s care impacted by: Other (head injury) Critical Care Time Critical Care Time Critical Care Time: No Discharge Plan Discharge Clinical Impression: Headache Patient Disposition: Home, Self-Care Instructions: General Headache (ED) Additional Instructions: Your CT head today was normal. Your lab workup was unremarkable. You tested negative for COVID, flu, RSV Take the prescribed medication as needed for headaches. Recommend following up with your primary care doctor for further evaluation and treatment. Rest of make sure drinking plenty of fluids as dehydration can lead to headaches. If you develop new or worsening symptoms call 911 or come back to the ER for further evaluation. Prescriptions: New [id number]-[id number] 50-325-40 mg tablet 1 tab PO Q6H PRN (Reason: headache) Qty: 10 0RF No Action acetaminophen [Tylenol] 325 mg capsule 650 mg PO Q6H PRN (Reason: pain (scale score 4-6)) Qty: 30 2RF doxycycline hyclate 100 mg tablet 100 mg PO BID Qty: 20 0RF cyclobenzaprine 10 mg tablet 10 mg PO TID PRN (Reason: muscle spasm) Qty: 10 0RF ibuprofen 800 mg tablet 800 mg PO Q8H PRN (Reason: pain) Qty: 14 0RF prednisone 20 mg tablet 40 mg PO DAILY 5 Days Qty: 10 0RF lidocaine [Lidoderm] 5 % adhesive patch,medicated 1 patch topical DAILY Qty: 15 0RF Rx Instructions: leave on most painful area for up to 12 hrs ketorolac 10 mg tablet 10 mg PO TID 5 Days Qty: 15 0RF cyclobenzaprine 10 mg tablet 10 mg PO BEDTIME PRN (Reason: muscle spasm) Qty: 7 0RF lidocaine 5 % adhesive patch,medicated 1 patch topical DAILY PRN (Reason: pain) Qty: 15 0RF Rx Instructions: leave on most painful area for up to 12 hrs ondansetron 4 mg tablet,disintegrating 4 mg PO Q6-8H PRN (Reason: nausea and vomiting) Qty: 7 0RF amoxicillin-pot clavulanate 875-125 mg tablet 1 tab PO BID 7 Days Qty: 14 0RF cefuroxime axetil 500 mg tablet 500 mg PO BID 5 Days Qty: 10 0RF cyclobenzaprine 5 mg tablet 5 mg PO TID PRN (Reason: muscle spasm) Qty: 14 0RF naproxen 500 mg tablet 500 mg PO BID PRN (Reason: pain) Qty: 30 0RF lidocaine 4 % adhesive patch,medicated 1 patch topical TID PRN (Reason: pain) Qty: 10 0RF amoxicillin-pot clavulanate 875-125 mg tablet 1 tab PO BID 10 Days Qty: 20 0RF ondansetron 4 mg tablet,disintegrating 4 mg PO Q8H PRN (Reason: nausea and vomiting) 4 Days Qty: 10 0RF dexamethasone 4 mg tablet 4 mg PO BID Qty: 6 0RF cyclobenzaprine 10 mg tablet 10 mg PO TID PRN (Reason: muscle spasm) Qty: 15 0RF cyclobenzaprine 10 mg tablet 10 mg PO TID PRN (Reason: muscle spasm) Qty: 14 0RF naproxen 500 mg tablet 500 mg PO BID PRN (Reason: pain) Qty: 20 0RF lidocaine [Lidoderm] 5 % adhesive patch,medicated 1 patch topical DAILY Qty: 15 0RF Rx Instructions: leave on most painful area for up to 12 hrs doxycycline monohydrate 100 mg capsule 100 mg PO BID Qty: 14 0RF Interventions: ED Discharge Assessment Last Done: 02/01/24 18:29 Discharge Date/Time: 02/01/24 18:30 Print Language: [place]
--- NOTE | 2024-02-01 16:25 | MHC.EDTECH ---
Patient blood drawn ,and rsv/covid swab collected all sent to lab .
[2024-02-01 16:27] LABS: MANUAL DIFF FLAG NO
[2024-02-01 16:30] LABS: Basophils Percent Auto 0.7 % (0-2); Eosinophils Absolute Auto 0.1 X10*3/uL (0.0-0.4); Hematocrit 38.9 % (37.0-47.0); Hemoglobin 12.4 g/dl (12.0-16.0); Imm Gran Abs Auto 0.03 X10*3/uL (0.00-0.03); Imm Gran Pct Auto 0.5 % (0.0-0.4); Lymphocytes Absolute Auto 1.3 X10*3/uL (1.2-4.9); Lymphocytes Percent Auto 20.5 % (20-40); Mean Corpuscular HGB Conc 31.9 g/dl (31.0-35.0); Mean Corpuscular Hemoglobin 25.5 pg (27.0-33.0); Mean Corpuscular Volume 79.9 fL (80.0-98.0); Mean Platelet Volume 9.8 fL (9.4-12.3); Monocytes Absolute Auto 0.5 X10*3/uL (0.1-1.2); Monocytes Percent Auto 7.7 % (2-11); Neutrophils Absolute Auto 4.3 x10*3/uL (2.0-8.3); Neutrophils Percent Auto 69.6 % (45-73); Platelet Count 382 X10*3/uL (160-400); Red Blood Count 4.87 X10*6/uL (4.20-5.50); Red Cell Distribution Width 13.3 % (11.0-16.0); White Blood Count 6.1 X10*3/uL (4.8-10.8)
[2024-02-01 16:46] LABS: Alanine Aminotransferase 35 U/L (0-31); Albumin Level 4.3 g/dL (3.5-5.0); Alkaline Phosphatase 87 U/L (39-117); Anion Gap 12 (12-20); Aspartate Amino Transferase 27 U/L (5-31); Bilirubin Direct 0.1 mg/dL (0.0-0.5); Bilirubin Total 0.4 mg/dL (0.0-1.0); Blood Urea Nitrogen 9 mg/dL (9-16); Calcium 9.5 mg/dL (8.4-10.2); Carbon Dioxide 25 mmol/L (22-29); Chloride 105 mmol/L (96-108); Creatinine Clr Calc Pharmacy 96.9; Estimated Glomerular Filt Rate > 60; Glucose Random 91 mg/dL (60-115); Potassium 4.1 mmol/L (3.3-5.1); Sodium 138 mmol/L (135-145); Total Protein 8.4 g/dL (6.5-8.0)
[2024-02-01 16:55] LABS: Troponin-I High Sensitivity < 2.7 ng/L (<3.5-17.0)
[2024-02-01 17:10] LABS: Influenza A PCR NEGATIVE (Negative); Influenza B PCR NEGATIVE (Negative); Resp Syncy Virus RNA Qual PCR NEGATIVE (Negative); SARS COV2 PCR INHOUSE NEGATIVE (Negative)
[2024-02-01 18:29] VITALS: BP 0/0; PULSE 74; RESP 16; TEMP 36.6; O2SAT 97
--- NOTE | 2024-02-01 18:29 | PC.NURSE ---
Pt. refused d/c vitals.
== END 2024-02-01 18:30 | disposition home or self-care (01) ==
PROVIDERS: Physician Assistant Medical; Emergency Provider Emergency Medicine
DX: R51.9 Headache, unspecified (principal); R50.9 Fever, unspecified; Z79.899 Other long term (current) drug therapy; Z03.818 Encounter for observation for suspected exposure to other biological agents ruled out
CPT/HCPCS: 0241U; 70450; 80048; 80076; 83735; 84484; 85025; 99282; 99284

== ENCOUNTER 2024-02-20 21:56 | Emergency (ER) | payer MEDICAID, SELFPAY ==
--- NOTE | 2024-02-20 | ECG_ITS ---
Test Reason : dizziness Blood Pressure : / mmHG Vent. Rate : 086 BPM Atrial Rate : 086 BPM P-R Int : 126 ms QRS Dur : 080 ms QT Int : 368 ms P-R-T Axes : 048 -15 004 degrees QTc Int : 440 ms Normal sinus rhythm Possible Anterior infarct , age undetermined Abnormal ECG When compared with ECG of 06-JAN-2023 15:03, No significant change was found Referred By: Generic ED Physician Electronically Signed By:MELIZA JONES
[2024-02-20 22:00] VITALS: BP 127/81; PULSE 98; RESP 18; TEMP 36.8; O2SAT 100; BMI 30.9
[2024-02-20 22:27] LABS: MANUAL DIFF FLAG NO
[2024-02-20 22:28] LABS: Basophils Absolute Auto 0.1 X10*3/uL (0.0-0.2); Basophils Percent Auto 0.6 % (0-2); Eosinophils Absolute Auto 0.2 X10*3/uL (0.0-0.4); Eosinophils Percent Auto 2.1 % (0-4); Hematocrit 37.2 % (37.0-47.0); Hemoglobin 11.9 g/dl (12.0-16.0); Imm Gran Abs Auto 0.02 X10*3/uL (0.00-0.03); Imm Gran Pct Auto 0.2 % (0.0-0.4); Lymphocytes Absolute Auto 1.6 X10*3/uL (1.2-4.9); Lymphocytes Percent Auto 19.4 % (20-40); Mean Corpuscular Hemoglobin 25.3 pg (27.0-33.0); Mean Platelet Volume 9.7 fL (9.4-12.3); Monocytes Absolute Auto 0.6 X10*3/uL (0.1-1.2); Neutrophils Absolute Auto 5.8 x10*3/uL (2.0-8.3); Neutrophils Percent Auto 70.7 % (45-73); Platelet Count 406 X10*3/uL (160-400); Red Blood Count 4.71 X10*6/uL (4.20-5.50); Red Cell Distribution Width 13.7 % (11.0-16.0); White Blood Count 8.3 X10*3/uL (4.8-10.8)
[2024-02-20 22:52] LABS: Anion Gap 17 (12-20); Blood Urea Nitrogen 11 mg/dL (9-16); Calcium 9.6 mg/dL (8.4-10.2); Carbon Dioxide 21 mmol/L (22-29); Chloride 105 mmol/L (96-108); Creatinine Clr Calc Pharmacy 88.1; Estimated Glomerular Filt Rate > 60; Glucose Random 97 mg/dL (60-115); Potassium 4.4 mmol/L (3.3-5.1); Sodium 139 mmol/L (135-145)
--- NOTE | 2024-02-20 23:28 | PC.NURSE ---
Pt is ca&ox4, no signs of distress. Pt reports lump behind rt ear w/ 02/12 pain and pressure that shoots to the back of head onset 2 days ago Pt also reports a brief episode of light headedness and bilateral blurry vision. family at bedside. Plan of care ongoing.
--- NOTE | 2024-02-20 23:39 | ED_ITS ---
HPI - General Adult General Chief complaint: General Medical Stated complaint: right ear pain Time Seen by Provider: 02/20/24 23:09 Source: patient Mode of arrival: ambulatory Limitations: no limitations History of Present Illness ED Provider: corrina CLEMENTS narrative: Patient complaining of swelling behind the right ear for last 2 days no ear discharge no scalp lesion no fever or chills no family history of lymphomas no other lymph node enlargement Related Data Previous Rx's ?Medication ?Instructions ?Recorded cyclobenzaprine 10 mg tablet 10 mg PO TID PRN muscle spasm #10 05/23/20 tabs ibuprofen 800 mg tablet 800 mg PO Q8H PRN pain #14 tabs 05/23/20 lidocaine 5 % topical patch 1 patch topical DAILY pain #15 ea 05/23/20 (Lidoderm) prednisone 20 mg tablet 40 mg (2 x 20 mg) PO DAILY 05/23/20 inflammation 5 days #10 tabs ketorolac 10 mg tablet 10 mg PO TID 5 days #15 tabs 04/22/21 acetaminophen 325 mg capsule 650 mg (2 x 325 mg) PO Q6H PRN 06/03/21 (Tylenol) pain (scale score 4-6) #30 caps doxycycline hyclate 100 mg tablet 100 mg PO BID Hidradenitis #20 06/04/21 tabs cyclobenzaprine 10 mg tablet 10 mg PO BEDTIME PRN muscle spasm 03/10/22 #7 tabs lidocaine 5 % topical patch 1 patch topical DAILY PRN pain #15 03/10/22 ea ondansetron 4 mg disintegrating 4 mg PO Q6-8H PRN nausea and 05/25/22 tablet vomiting #7 tabs cefuroxime axetil 500 mg tablet 500 mg PO BID 5 days #10 tabs 06/14/22 cyclobenzaprine 5 mg tablet 5 mg PO TID PRN muscle spasm #14 06/14/22 tabs lidocaine 4 % topical patch 1 patch topical TID PRN pain #10 ea 06/14/22 naproxen 500 mg tablet 500 mg PO BID PRN pain #30 tabs 06/14/22 amoxicillin 875 mg-potassium 1 tab PO BID 7 days #14 tabs 07/05/22 clavulanate 125 mg tablet amoxicillin 875 mg-potassium 1 tab PO BID dog bite 10 days #20 07/07/22 clavulanate 125 mg tablet tabs cyclobenzaprine 10 mg tablet 10 mg PO TID PRN muscle spasm #14 11/17/22 tabs lidocaine 5 % topical patch 1 patch topical DAILY #15 ea 11/17/22 (Lidoderm) naproxen 500 mg tablet 500 mg PO BID PRN pain #20 tabs 11/17/22 doxycycline monohydrate 100 mg 100 mg PO BID #14 caps 01/31/23 capsule ondansetron 4 mg disintegrating 4 mg PO Q8H PRN nausea and 07/25/23 tablet vomiting 4 days #10 tabs cyclobenzaprine 10 mg tablet 10 mg PO TID PRN muscle spasm #15 09/05/23 tabs dexamethasone 4 mg tablet 4 mg PO BID #6 tabs 09/05/23 rpoqvuxocw-zhxpzrmospwlt-tnnpnqhy 1 tab PO Q6H PRN headache #10 tabs 02/01/24 50 mg-325 mg-40 mg tablet cephalexin 500 mg capsule 500 mg PO QID 10 days #40 caps 02/20/24 ibuprofen 600 mg tablet 600 mg PO Q6H PRN fever or pain 02/20/24 #30 tabs Allergies Allergy/AdvReac Type Severity Reaction Status Date / Time No Known Allergies Allergy Verified 02/20/24 22:04 Review of Systems 2 Review of Systems: Yes all other systems are reviewed and are negative PMFSH Past Medical History Medical History COVID-19 Asthma Surgical History History of axillary surgery (~2020) History of axillary surgery History of appendectomy Family History Family History Brother Leukemia Social History Social History Alcohol intake: never Patient Tobacco Use Status: Never used Tobacco Smoked in Last 30 Days: Yes Use of substances other than those prescribed or required for medical reasons: No Advance Directives: No Advance Directives Information Provided: Yes Do you have a plan to hurt others: No Plan Physical Exam ED Vital Signs: Vital Signs - 24 hr 02/20/24 22:00 Temperature 98.3 F Pulse Rate 98 Respiratory Rate 18 Blood Pressure 127/81 Pulse Oximetry 100 Oxygen Delivery Method Room Air BMI result Body Mass Index 30.9 Appearance: Alert. Oriented X3. No acute distress. ENT: Pharynx normal. Oral Mucosa moist no scalp lesion Neck: Normal inspection. Neck supple. No cervical adenopathy except for right posterior auricular CVS: Normal heart rate and rhythm. Pulses normal. Respiratory: No respiratory distress. Equal air entry bilateral, Abdomen: Soft and nontender. Bowel sounds are present, Skin: Skin warm and dry. Normal skin color. Normal skin turgor. Extremities: No lower extremity edema. No calf tenderness Neuro: Oriented X 3. [facility] Head images: 2 1. 1.5 x 1.5 cm lymph node slightly tender no discoloration of the skin Ears: hearing grossly normal bilaterally, TM's normal bilaterally and mastoids normal Medical Decision Making Lab Data [facility] Lab Attestation statement: I reviewed the patient's lab results. 02/20/24 22:20 02/20/24 22:20 Labs: Lab Results 02/20/24 Range/Units 22:20 WBC 8.3 (4.8-10.8) X10*3/uL RBC 4.71 (4.20-5.50) X10*6/uL Hgb 11.9 L (12.0-16.0) g/dl Hct 37.2 (37.0-47.0) % MCV 79.0 L (80.0-98.0) fL MCH 25.3 L (27.0-33.0) pg MCHC 32.0 (31.0-35.0) g/dl RDW 13.7 (11.0-16.0) % Plt Count 406 H (160-400) X10*3/uL MPV 9.7 (9.4-12.3) fL Immature Gran % (Auto) 0.2 (0.0-0.4) % Neut % (Auto) 70.7 (45-73) % Lymph % (Auto) 19.4 L (20-40) % Shannon % (Auto) 7.0 (2-11) % Eos % (Auto) 2.1 (0-4) % Baso % (Auto) 0.6 (0-2) % Lymph # (Auto) 1.6 (1.2-4.9) X10*3/uL Shannon # (Auto) 0.6 (0.1-1.2) X10*3/uL Eos # (Auto) 0.2 (0.0-0.4) X10*3/uL Baso # (Auto) 0.1 (0.0-0.2) X10*3/uL Abs Immat Gran (auto) 0.02 (0.00-0.03) X10*3/uL Absolute Neuts (auto) 5.8 (2.0-8.3) x10*3/uL Absolute Nucleated RBC 0.000 (0.0-0.012) X10*3/uL Nucleated RBC % (auto) 0.0 (0.0-0.2) /100WBC Sodium 139 (135-145) mmol/L Potassium 4.4 (3.3-5.1) mmol/L Chloride 105 (96-108) mmol/L Carbon Dioxide 21 L (22-29) mmol/L Anion Gap 17 (12-20) BUN 11 (9-16) mg/dL Creatinine 0.97 (0.5-1.4) mg/dL Estim Creat Clear Calc 88.1 Estimated GFR > 60 Random Glucose 97 (60-115) mg/dL Calcium 9.6 (8.4-10.2) mg/dL Discharge Plan Discharge Clinical Impression: Posterior auricular lymphadenopathy Patient Disposition: Home, Self-Care Instructions: Lymphadenopathy (ED) Additional Instructions: Likely you have an inflammatory lymph node enlargement Take antibiotics and ibuprofen for pain Report to the ER/PCP if lymph node get further enlarged in size Prescriptions: New cephalexin 500 mg capsule 500 mg PO QID 10 Days Qty: 40 0RF ibuprofen 600 mg tablet 600 mg PO Q6H PRN (Reason: fever or pain) Qty: 30 0RF No Action acetaminophen [Tylenol] 325 mg capsule 650 mg PO Q6H PRN (Reason: pain (scale score 4-6)) Qty: 30 2RF doxycycline hyclate 100 mg tablet 100 mg PO BID Qty: 20 0RF cyclobenzaprine 10 mg tablet 10 mg PO TID PRN (Reason: muscle spasm) Qty: 10 0RF ibuprofen 800 mg tablet 800 mg PO Q8H PRN (Reason: pain) Qty: 14 0RF prednisone 20 mg tablet 40 mg PO DAILY 5 Days Qty: 10 0RF lidocaine [Lidoderm] 5 % adhesive patch,medicated 1 patch topical DAILY Qty: 15 0RF Rx Instructions: leave on most painful area for up to 12 hrs ketorolac 10 mg tablet 10 mg PO TID 5 Days Qty: 15 0RF cyclobenzaprine 10 mg tablet 10 mg PO BEDTIME PRN (Reason: muscle spasm) Qty: 7 0RF lidocaine 5 % adhesive patch,medicated 1 patch topical DAILY PRN (Reason: pain) Qty: 15 0RF Rx Instructions: leave on most painful area for up to 12 hrs ondansetron 4 mg tablet,disintegrating 4 mg PO Q6-8H PRN (Reason: nausea and vomiting) Qty: 7 0RF amoxicillin-pot clavulanate 875-125 mg tablet 1 tab PO BID 7 Days Qty: 14 0RF cefuroxime axetil 500 mg tablet 500 mg PO BID 5 Days Qty: 10 0RF cyclobenzaprine 5 mg tablet 5 mg PO TID PRN (Reason: muscle spasm) Qty: 14 0RF naproxen 500 mg tablet 500 mg PO BID PRN (Reason: pain) Qty: 30 0RF lidocaine 4 % adhesive patch,medicated 1 patch topical TID PRN (Reason: pain) Qty: 10 0RF amoxicillin-pot clavulanate 875-125 mg tablet 1 tab PO BID 10 Days Qty: 20 0RF ondansetron 4 mg tablet,disintegrating 4 mg PO Q8H PRN (Reason: nausea and vomiting) 4 Days Qty: 10 0RF dexamethasone 4 mg tablet 4 mg PO BID Qty: 6 0RF cyclobenzaprine 10 mg tablet 10 mg PO TID PRN (Reason: muscle spasm) Qty: 15 0RF pwgedhhtir-andwntqvvghyw-aszh 50-325-40 mg tablet 1 tab PO Q6H PRN (Reason: headache) Qty: 10 0RF cyclobenzaprine 10 mg tablet 10 mg PO TID PRN (Reason: muscle spasm) Qty: 14 0RF naproxen 500 mg tablet 500 mg PO BID PRN (Reason: pain) Qty: 20 0RF lidocaine [Lidoderm] 5 % adhesive patch,medicated 1 patch topical DAILY Qty: 15 0RF Rx Instructions: leave on most painful area for up to 12 hrs doxycycline monohydrate 100 mg capsule 100 mg PO BID Qty: 14 0RF Print Language: Gabonese
[2024-02-21] MEDS: cephALEXin 500 MG CAPSULE PO (00:06)
[2024-02-21] MEDS: Ibuprofen 600 MG TABLET PO (00:06)
[2024-02-21 00:09] VITALS: BP 124/82; PULSE 85; RESP 16; TEMP 37.1; O2SAT 98
[2024-02-21 00:10] VITALS: BP 124/82; PULSE 85; RESP 16; TEMP 37.1; O2SAT 98
== END 2024-02-21 00:15 | disposition home or self-care (01) ==
PROVIDERS: Emergency Provider Internal Medicine
DX: R59.0 Localized enlarged lymph nodes (principal); H92.01 Otalgia, right ear
CPT/HCPCS: 36415; 80048; 85025; 93005; 99283; 99285

== ENCOUNTER 2024-05-05 13:26 | Outpatient (REF) | payer MEDICAID, SELFPAY | END 2024-05-05 13:27 | disposition home or self-care (01) | LOC: HO.HHCLNP 13:26 | PROVIDERS: Visit Provider Student in an Organized Health Care Education/Training Program | DX: R05.9 Cough, unspecified (principal) | CPT/HCPCS: 36415 ==

== ENCOUNTER 2024-10-10 12:47 | Emergency (ER) | payer MEDICAID, SELFPAY ==
[2024-10-10 13:01] VITALS: BP 107/68; PULSE 77; RESP 16; TEMP 36.7; O2SAT 97; BMI 29.0
--- NOTE | 2024-10-10 13:09 | ED.GENADULT ---
HPI - General Adult General Chief complaint: Upper Respiratory Symptoms Stated complaint: r ankle pain and feeling sick Time Seen by Provider: 10/10/24 13:49 Source: patient Mode of arrival: ambulatory Limitations: no limitations History of Present Illness ED Provider: Harry Flor HPI narrative: 39 yold female with pmh of hidraneitis, asthma presents to the ED for sore throat and coughing since last night. Mother states children also having similar symptoms. Patient denies any chest pain or shortness of breath. Patient denies any leg swelling, calf pain, ankle pain, pleurisy, recent long travel or recent surgery. Patient denies any estrogen or control use. Related Data Previous Rx's ?Medication ?Instructions ?Recorded cyclobenzaprine 10 mg tablet 10 mg PO TID PRN muscle spasm #10 05/23/20 tabs ibuprofen 800 mg tablet 800 mg PO Q8H PRN pain #14 tabs 05/23/20 lidocaine 5 % topical patch 1 patch topical DAILY pain #15 ea 05/23/20 (Lidoderm) prednisone 20 mg tablet 40 mg (2 x 20 mg) PO DAILY 05/23/20 inflammation 5 days #10 tabs ketorolac 10 mg tablet 10 mg PO TID 5 days #15 tabs 04/22/21 acetaminophen 325 mg capsule 650 mg (2 x 325 mg) PO Q6H PRN 06/03/21 (Tylenol) pain (scale score 4-6) #30 caps doxycycline hyclate 100 mg tablet 100 mg PO BID Hidradenitis #20 06/04/21 tabs cyclobenzaprine 10 mg tablet 10 mg PO BEDTIME PRN muscle spasm 03/10/22 #7 tabs lidocaine 5 % topical patch 1 patch topical DAILY PRN pain #15 03/10/22 ea ondansetron 4 mg disintegrating 4 mg PO Q6-8H PRN nausea and 05/25/22 tablet vomiting #7 tabs cefuroxime axetil 500 mg tablet 500 mg PO BID 5 days #10 tabs 06/14/22 cyclobenzaprine 5 mg tablet 5 mg PO TID PRN muscle spasm #14 06/14/22 tabs lidocaine 4 % topical patch 1 patch topical TID PRN pain #10 ea 06/14/22 naproxen 500 mg tablet 500 mg PO BID PRN pain #30 tabs 06/14/22 amoxicillin 875 mg-potassium 1 tab PO BID 7 days #14 tabs 07/05/22 clavulanate 125 mg tablet amoxicillin 875 mg-potassium 1 tab PO BID dog bite 10 days #20 07/07/22 clavulanate 125 mg tablet tabs cyclobenzaprine 10 mg tablet 10 mg PO TID PRN muscle spasm #14 11/17/22 tabs lidocaine 5 % topical patch 1 patch topical DAILY #15 ea 11/17/22 (Lidoderm) naproxen 500 mg tablet 500 mg PO BID PRN pain #20 tabs 11/17/22 doxycycline monohydrate 100 mg 100 mg PO BID #14 caps 01/31/23 capsule ondansetron 4 mg disintegrating 4 mg PO Q8H PRN nausea and 07/25/23 tablet vomiting 4 days #10 tabs cyclobenzaprine 10 mg tablet 10 mg PO TID PRN muscle spasm #15 09/05/23 tabs dexamethasone 4 mg tablet 4 mg PO BID #6 tabs 09/05/23 zoqxihkxdm-zaqeubtxhrhhr-ynjwooxy 1 tab PO Q6H PRN headache #10 tabs 02/01/24 50 mg-325 mg-40 mg tablet cephalexin 500 mg capsule 500 mg PO QID 10 days #40 caps 02/20/24 ibuprofen 600 mg tablet 600 mg PO Q6H PRN fever or pain 02/20/24 #30 tabs amoxicillin 875 mg-potassium 1 tab PO Q12H 10 days #20 tabs 10/10/24 clavulanate 125 mg tablet Allergies Allergy/AdvReac Type Severity Reaction Status Date / Time No Known Allergies Allergy Verified 10/10/24 13:03 Review of Systems Review of Systems: coughing, headache Yes all other systems are reviewed and are negative [facility] Past Medical History Medical History COVID-19 Asthma Surgical History History of axillary surgery (~2020) History of axillary surgery History of appendectomy Family History Family History Brother Leukemia Social History Social History Alcohol intake: never Patient Tobacco Use Status: Never used Tobacco Advance Directives: No Advance Directives Information Provided: Yes Do you have a plan to hurt others: No Plan Physical Exam ED Vital Signs: Vital Signs - 24 hr 10/10/24 13:01 10/10/24 14:45 Temperature 98.0 F 98.0 F Pulse Rate 77 77 Respiratory Rate 16 16 Blood Pressure 107/68 107/68 Pulse Oximetry 97 97 Oxygen Delivery Method Room Air Room Air BMI result Body Mass Index 29.0 Const General: cooperative, healthy appearing, comfortable, no acute distress, well developed, alert, awake and Physically active Orientation/consciousness: patient oriented x3 [facility] Head: Yes normal to inspection, Yes No palpable skull fracture present, Yes normocephalic and Yes atraumatic Throat: Yes posterior oropharynx normal, Yes uvula midline and Yes abnormal tonsil (erythema) Eyes General: appearance normal, both eyes and all related structures Neck Neck: Yes normal visual inspection, Yes full ROM, Yes no lymphadenopathy, Yes no meningeal signs, Yes trachea midline, Yes supple, No anterior neck swelling and No tender Chest Chest palpation & inspection: normal inspection of the chest and normal palpation of entire chest wall Resp Effort & Inspection: normal respiratory effort and able to speak in complete sentences Auscultation: clear to auscultation bilaterally Cardio Jugular venous distension: no JVD Heart sounds: S1 normal heart sound present and S2 normal heart sound present GI Inspection: Yes normal to inspection Palpation (GI): Soft to palpation, not firm, nontender, no guarding and not rigid General: Yes no CVA tenderness Back/Spine/Pelvis Back: no CVA tenderness and No back tenderness Skin General skin exam: no rashes or lesions noted, elasticity normal and turgor normal Neuro General: patient oriented x3, gait normal, tone normal, moves all extremities, Normal light touch and pain sensation, no meningeal signs, no focal motor deficits, CN's II-XI intact bilaterally and normal sensation to monofilament Extrem General: Yes normal to inspection, Yes full ROM and Yes capillary refill normal Psych Appearance: grossly normal, well kempt and not disheveled Course Course Course Narrative: RME: 39-year-old female presents to ED for coughing and headache since last night. Patient states children also have similar symptoms. Patient denies any chest pain, shortness of breath, coughing up blood, leg swelling, calf pain, ankle pain, any other concerning symptoms. Lungs are clear. SARs strep ordered. Medical Decision Making Medical Decision Making [facility] Narrative: 39-year-old female presents to ED for coughing headache when URI symptoms. Patient states children also have similar symptoms. Patient denies any chest pain or shortness of breath. Physical exam negative for signs of peritonsillar abscess. Patient not any distress. SARs negative. Strep positive. Patient explained worrisome signs and informed to return to the ED immediately. Not suspecting myocarditis, pericarditis, pneumonia, hypoxia, respiratory failure, or any other life threatening etiologies. . Differential Diagnosis Differential Diagnoses: The differential diagnosis associated with the presentation includes (Covid, strep, influenza) Admission/Observation Consideration of admission/observation: Escalation of care including admission/observation considered Lab Data [facility] Lab Attestation statement: I reviewed the patient's lab results. Labs: Lab Results 10/10/24 Range/Units 13:28 Influenza Type A (PCR) NEGATIVE (Negative) Influenza Type B (PCR) NEGATIVE (Negative) RSV RNA Qual (PCR) NEGATIVE (Negative) SARS-CoV-2 RNA (RT-PCR) NEGATIVE (Negative) S. pyogenes GrpA ALEJANDRA Positive A (Negative) Independent Historian Clinical information obtained from an independent historian. History obtained from or confirmed by: Other (patient) Prescription Management I considered prescription management with: Antibiotic Discharge Plan Discharge Clinical Impression: Strep throat Patient Disposition: Home, Self-Care Instructions: Strep Throat (ED) Additional Instructions: You tested positive for strep. You will be discharged with antibiotics. Return to the ED immediately for any drooling, change in voice, chest pain, shortness of breath, neck swelling, inability tolerate solid food/liquid, any other concerning symptoms. Recommend follow up with primary care provider Prescriptions: New amoxicillin-pot clavulanate 875-125 mg tablet 1 tab PO Q12H 10 Days Qty: 20 0RF No Action acetaminophen [Tylenol] 325 mg capsule 650 mg PO Q6H PRN (Reason: pain (scale score 4-6)) Qty: 30 2RF doxycycline hyclate 100 mg tablet 100 mg PO BID Qty: 20 0RF cyclobenzaprine 10 mg tablet 10 mg PO TID PRN (Reason: muscle spasm) Qty: 10 0RF ibuprofen 800 mg tablet 800 mg PO Q8H PRN (Reason: pain) Qty: 14 0RF prednisone 20 mg tablet 40 mg PO DAILY 5 Days Qty: 10 0RF lidocaine [Lidoderm] 5 % adhesive patch,medicated 1 patch topical DAILY Qty: 15 0RF Rx Instructions: leave on most painful area for up to 12 hrs ketorolac 10 mg tablet 10 mg PO TID 5 Days Qty: 15 0RF cyclobenzaprine 10 mg tablet 10 mg PO BEDTIME PRN (Reason: muscle spasm) Qty: 7 0RF lidocaine 5 % adhesive patch,medicated 1 patch topical DAILY PRN (Reason: pain) Qty: 15 0RF Rx Instructions: leave on most painful area for up to 12 hrs ondansetron 4 mg tablet,disintegrating 4 mg PO Q6-8H PRN (Reason: nausea and vomiting) Qty: 7 0RF amoxicillin-pot clavulanate 875-125 mg tablet 1 tab PO BID 7 Days Qty: 14 0RF cefuroxime axetil 500 mg tablet 500 mg PO BID 5 Days Qty: 10 0RF cyclobenzaprine 5 mg tablet 5 mg PO TID PRN (Reason: muscle spasm) Qty: 14 0RF naproxen 500 mg tablet 500 mg PO BID PRN (Reason: pain) Qty: 30 0RF lidocaine 4 % adhesive patch,medicated 1 patch topical TID PRN (Reason: pain) Qty: 10 0RF amoxicillin-pot clavulanate 875-125 mg tablet 1 tab PO BID 10 Days Qty: 20 0RF ondansetron 4 mg tablet,disintegrating 4 mg PO Q8H PRN (Reason: nausea and vomiting) 4 Days Qty: 10 0RF dexamethasone 4 mg tablet 4 mg PO BID Qty: 6 0RF cyclobenzaprine 10 mg tablet 10 mg PO TID PRN (Reason: muscle spasm) Qty: 15 0RF tuakgxwpmj-mwzuwaxptlfjx-ygqy 50-325-40 mg tablet 1 tab PO Q6H PRN (Reason: headache) Qty: 10 0RF cyclobenzaprine 10 mg tablet 10 mg PO TID PRN (Reason: muscle spasm) Qty: 14 0RF naproxen 500 mg tablet 500 mg PO BID PRN (Reason: pain) Qty: 20 0RF lidocaine [Lidoderm] 5 % adhesive patch,medicated 1 patch topical DAILY Qty: 15 0RF Rx Instructions: leave on most painful area for up to 12 hrs doxycycline monohydrate 100 mg capsule 100 mg PO BID Qty: 14 0RF cephalexin 500 mg capsule 500 mg PO QID 10 Days Qty: 40 0RF ibuprofen 600 mg tablet 600 mg PO Q6H PRN (Reason: fever or pain) Qty: 30 0RF Stand Alone Forms: Work/School Release Interventions: ED Discharge Assessment Last Done: 10/10/24 14:45 Discharge Date/Time: 10/10/24 14:49 Print Language: Romanian
[2024-10-10 13:49] LABS: IDNOW Serial# 58CA691E; Strep A Nucleic Acid Positive (Negative)
[2024-10-10 14:22] LABS: Influenza A PCR NEGATIVE (Negative); Influenza B PCR NEGATIVE (Negative); Resp Syncy Virus RNA Qual PCR NEGATIVE (Negative); SARS COV2 PCR INHOUSE NEGATIVE (Negative)
[2024-10-10 14:45] VITALS: BP 107/68; PULSE 77; RESP 16; TEMP 36.7; O2SAT 97
--- OUTSIDE RECORDS SUMMARY | 2024-10-10 17:36 | XMS_ITS | Encounter Summary ---
Author Organization [employer] Address [address] [place] [address] Care Team Providers Care Filler Picker Name Role Phone Kusum Austin NP Primary Care Provider [phone] Reason for Visit * Reason Onset Date Comments ER Follow-up 02/22/2024 Encounter Details Date Type Department Care Team ([facility] st Contact Info) Description 02/22/2024 Telephone [facility] MEDICINE [address] [place] [address] Kusum Austin NP [address] [place] [address] ER Follow-up Social History Tobacco Use Types Packs/Day Years Used Date Smoking Tobacco: Some Days Cigarettes Passive Smoke Exposure: Current Smokeless Tobacco: Never Alcohol Use Standard Drinks/Week Comments Not Currently 0 (1 standard drink = 0.6 oz pur e alcohol) Depression Answer Date Recorded Patient Health Questionnaire-9 Score 10 12/26/2022 Housing Stability Answer Date Recorded What is your housing situation today? I have delma gore 05/05/[address] you li ve. Do you have problems with any of the following? None of the above 05/05/2023 Food Insecurity Answer Date Recorded Within the past 12 months, y ou worried that your food would run out before you got money to buy more: Never True 05/05/2023 Within the past 12 months,th e food you bought just didn't last and you didn't have enough money to get more: Never True Transportation Answer Date Recorded In the past 12 months, has l ack of transportation kept you from medical appts, meetings, work or from getting things needed for daily living? No 05/05/2023 Utilities Answer Date Recorded In the past 12 months, has t he electric, gas, oil or water company threatened to shut off services in your home? Yes 04/12/2023 Depression Answer Date Recorded Patient Health Questionnaire-2 Score 2 12/26/2022 Comments Unknown Sex and Gender Information Value Date Recorded Sex Assigned at Female 05/05/2022 10:18 AM EDT Legal Sex Female 10:18 AM EDT Gender Identity Female 05/05/2022 10:18 AM EDT Sexual Orientation Straight 05/05/2022 10 :18 AM EDT documented as of this encounter Miscellaneous Notes * Telephone Encounter - Kate Orosco RN - 02/23/2024 1:35 PM EDT T/C to pt. For recent ED visit and status check. Pt. Has ED visit for lymphadenopathy ( an inflammatory lymph node enlargement ). Pt. Was prescribe for 10 days course of antibiotics and pain medication. Pt. Is doing ok. Advised to finish entire course of antibiotics. Advised to go to nearest ED in case of if lymph node get further enlarged in size. Also advised to call [facility] in case of any questions or concerns. [facility] hours are reviewed. ED summery scanned into pt's chart. * Telephone Encounter - Dayton Zazueta - 02/22/2024 2:38 PM EDT Patient calling to report ED visit on : Date: 02/20 Hospital: [facility] Seen for: Pain in the head and loss of sleep Patient advised will forward to team nurse for follow up documented in this encounter Plan of Treatment Upcoming Encounters Date Type Department Care Team (Late st Contact Info) Description 11/01/2024 10:30 AM EDT Office Visit [facility] ADULT DENTAL [address], [place] [phone] Preston Hong DDS [address], [place] [phone] documented as of this encounter Goals Goal Patient Goal Type Associated Problems Recent Progress Patient-Stated? Author Smoking cessation General No Promise Casas, Robert Take your medication every day Lifestyle No Promise Casas PharmD documented as of this encounter Visit Diagnoses Not on filedocumented in this encounter Additional Health Concerns Assessment Noted Time PHQ-9 Depression Total Score: 10 023 2:55 PM EDT documented as of this encounter Care Teams Filler Picker Relationship Specialty Start Date End Date Kusum Austin NP [address] [place] [address] PCP - General Family Medicine 09/17/23 documented as of this encounter
--- OUTSIDE RECORDS SUMMARY | 2024-10-10 17:36 | XMS_ITS | Encounter Summary ---
Author Organization [facility] Address [address] [place] [phone] Phone Care Team Providers Care News Specialist Name Role Phone Urvashi Leung MD Primary Care Provider Encounter Details Date Type Department Care Team (Late st Contact Info) Description 05/07/2017 Conversion Encounter [facility] [address] [place] [address] Social History Tobacco Use Types Packs/Day Years Used Date Smoking Tobacco: Never Assessed Comments Unknown Sex and Gender Information Value Date Recorded Sex Assigned at Not on file Legal Sex Female 4:11 PM EDT Gender Identity Not on file Sexual Orientation Not on file documented as of this encounter Plan of Treatment Not on file documented as of this encounter Visit Diagnoses Not on filedocumented in this encounter Care Teams News Specialist Relationship Specialty Start Date End Date Urvashi Leung MD [address] [place] [address] PCP - General 02/13/17 09/17/22 documented as of this encounter
--- OUTSIDE RECORDS SUMMARY | 2024-10-10 17:36 | XMS_ITS | Clinical Summary ---
Author Organization [employer] Address [address] [place] [address] Care Team Providers Care Auto Transmission Specialist Name Role Phone Kusum Austin NP Primary Care Provider [phone] Allergies No known active allergies Medications ketotifen (Zaditor) 0.025 % ophthalmic solutionIndicatio ns:Seasonal allergic rhinitis, unspecified trigger Administer 1 drop into affected eye(s) every 12 (twelve) hours. 10 mL 1 3 Active SM All Day Allergy Relief 10 MG tabletIndications :Seasonal allergic rhinitis, unspecified trigger Take 1 tablet (10 mg) by mouth in the morning. 90 tablet 1 3 Active fluticasone (Flonase) 50 MCG/ACT nasal sprayIndications: Seasonal allergic rhinitis, unspecified trigger INSTILL 2 SPRAYS IN EACH NOSTRIL ONCE DAILY IN THE MORNING 48 g 1 3 Active sertraline (Zoloft) 50 MG tabletIndications :Depressive disorder Take 1 tablet (50 mg) by mouth in the morning. 90 tablet 1 4 Active hydrOXYzine HCl (Atarax) 25 MG tabletIndications :Anxiety TAKE 1 TABLET BY MOUTH THREE TIMES DAILY IN THE MORNING, EVENING, AND BEDTIME NEEDED FOR ANXIETY 90 tablet 1 4 Active cyclobenzaprine (Flexeril) 5 MG tabletIndications :Chronic bilateral low back pain without sciatica TAKE 1 Tablet BY MOUTH THREE TIMES DAILY NEEDED FOR MUSCLE SPASMS 60 tablet 4 Active lidocaine (Lidoderm) 5 % patchIndications: Chronic bilateral low back pain without sciatica Apply 1 patch topically Once per day. Remove & discard patch within 12 hours or as directed by MD. 30 patch 3 4 Active albuterol 108 (90 Base) MCG/ACT inhalerIndication s:Cough, unspecified type,Mild intermittent asthma without complication Inhale 2 puffs every 6 (six) hours if needed for wheezing. 18 g 4 05/05/20 25 Active Active Problems Problem Noted Date Diagnosed Date Cough 05/06/2024 Assessment & Plan (05/06/2024 7:15 AM EDT): Flu ,covid strep neg today Cough for > 10 days dry and intense that can provoke vomit Kids at home w similar symptoms No wheezing on exam Will tx empirically for pertussis ,mycoplasma -RVP sent today -azithromycin 5 days -supportive tx and refilled her DOMINGO prn -alarm signs and symptoms discussed Ankle pain, right 08/31/2023 Asthma 08/31/2023 Concussion without loss of consciousness 024 COVID-19 08/31/2023 Ganglion cyst 08/31/2023 Gastroenteritis 08/31/2023 History of appendectomy 08/31/2023 Lumbar strain 08/31/2023 Muscle spasm 08/31/2023 Pharyngitis with viral syndrome 08/31/2023 Right ankle sprain 08/31/2023 Shoulder pain, right 08/31/2023 Urinary tract infection 08/31/2023 Chronic bilateral low back pain without sciatica 01/06/2023 Overview (01/06/2023): Chronic back pain Aggravated by lifting pt at work Safe to return to work w/ light duty Continue Flexeril 5mg TID PRN, lidocaine patches Referred PT 10/27/22 Assessment & Plan (01/06/2023 9:41 PM EDT): Refill meds Write work clearance Will task team to check on referral to PT F/u 3 month or sooner PRN Anxiety 09/05/2022 Hidradenitis suppurativa 09/27/2021 Depressive disorder 09/27/2021 Overview (01/06/2023): PHQ 9 score today was 10 Denies SI, children protective factor chronic depression. Treating with Zoloft 50 mg, Hydroxyzine 25 mg TID PRN for anxety Assessment & Plan (01/06/2023 9:39 PM EDT): Worsening Refer to outpatient F/u 3 month or sooner PRN Seasonal allergic rhinitis 09/27/2021 Encounters Date Type Department Care Team Description 09/16/2024 Population Health Risk Score [facility] () Department [address] [facility] [address] [place] [address] Provider, Population Health Generic 09/12/2024 Telephone [facility] [address], [place] [phone] Preston Hong DDS from Last 3 Months Immunizations Name Administration Dates Next Due DTP 02/16/1991, 9,04/26/1987,1986,1986 Hep B, Adolescent or Pediatric 09/25/1998,1997,01/16/1998 Hib ([facility]) 05/14/1989 Influenza injectable quadriv alent preservative free 05/06/2022 MMR 01/16/1998,10/16/1987 OPV, Trivalent 02/16/1991, 9,01/31/1987,1986 Td (adult), 5 Lf tetanus tox oid, preservative free, adsorbed 10/12/1998 Social History Tobacco Use Types Packs/Day Years Used Date Smoking Tobacco: Some Days Cigarettes Passive Smoke Exposure: Current Smokeless Tobacco: Never Tobacco Cessation:Ready to Q uit: Not Asked; Counseling Given: Not Answered Alcohol Use Standard Drinks/Week Comments Not Currently [...] Orientation Straight 05/05/2022 10 :18 AM EDT Last Filed Vital Signs Vital Sign Reading Time Taken Comments Blood Pressure 124/79 05/05/2024 9:24 AM EDT Pulse 92 05/05/2024 9:24 AM EDT Temperature 36.8 ??C (98.2 ??F) 05/05/2024 9:24 AM ED T Respiratory Rate 20 05/05/2024 9:24 AM EDT Oxygen Saturation 99% 05/05/2024 9:24 AM EDT Inhaled Oxygen Concentration - - Weight 83.1 kg (183 lb 3.2 oz) 05/05/2024 9:24 A M EDT Height 167.6 cm (5' 6 ) 05/05/2024 9:24 AM EDT Body Mass Index 29.57 05/05/2024 9:24 AM EDT Plan of Treatment Upcoming Encounters Date Type Department Care Team (Late st Contact Info) Description 11/01/2024 10:30 AM EDT Office Visit [facility] [address] [place] [phone] Preston Hong DDS [address] [place] [address] Health Maintenance Due Date Last Done Comments Dental Oral Exam 1986 Dental Prophylaxis 1986 Dental X-Ray: Full Mouth 1986 HIV Screening 1986 Alcohol/Substance Use Screening 1998 DTaP/Tdap/Td Vaccines (6 - Tdap) 10/13/1998 10/12/1998, 02/16/1991, 05/14/1989, Additional history exists Family Planning (PISQ) 2001 Hepatitis C Screening 2004 Pneumococcal Vaccine: Pediatrics (0 to 5 Years) and At-Risk Patients (6 to 49) Years) (1 of 2 - PCV) 2005 Pap Smear 2007 Cervical Cancer Screening 2016 HPV/Cotest 2016 Depression Monitoring (PHQ-9) 06/27/2023 12/26/2022, 12/26/2022 SDOH Screening 10/28/2023 10/27/2022 Depression Screening 12/27/2023 12/26/2022, 12/27/19 COVID-19 Vaccine ( season) 2024 04/11/2021, 03/21/2021 Influenza Vaccine (#1) 2024 05/06/2022 Dental X-Ray: Bitewings 09/01/2024 08/31/2023, 06/27 Tobacco Screening 05/05/2025 05/05/2024 Lipid Panel 10/28/2027 10/27/2022, 07/13/2020 Zoster Vaccines (1 of 2) 2036 RSV Patients and Patients Aged 60 years or older (1 - 1-dose 75+ series) 2061 HIB Vaccines Completed 05/14/1989 IPV Vaccines Completed 02/16/1991, 03/1989, 01/31/1987, Additional history exists Hepatitis B Vaccines Completed 09/25/1998, 05/07/1998, 01/16/1998 HPV Vaccines Aged Out No longer eligi ble based on patient's age to complete this topic Hepatitis A Vaccines Aged Out No long er eligible based on patient's age to complete this topic Meningococcal Vaccine Aged Out No rishi julito eligible based on patient's age to complete this topic RSV under 20 months Aged Out No longe r eligible based on patient's age to complete this topic Rotavirus Vaccines Aged Out No longer eligible based on patient's age to complete this topic Goals Goal Patient Goal Type Associated Problems Recent Progress Patient-Stated? Author Smoking cessation General No Promise Casas PharmD Take your medication every day Lifestyle No Promise Casas PharmD Procedures Procedure Name Priority Date/Time Associated Diagnosis Comments SARS COV2/INFLUENZA A/B AND RSV RNA QL NAAT Routine 10/10/2024 1:28 PM EDT STREP A NUCLEIC ACID Routine 10/10/2024 1:28 PM EDT BITEWING - SINGLE RADIOGRAPHIC IMAGE Routine 08/31/2023 11:30 AM EST Dental abscess Dental caries LIPID PANEL, STANDARD Routine 10/27/2022 2:36 PM EDT Elevated triglycerides with high cholesterol from Last 3 Months or Most Recently Relevant to Health Maintenance Results * (ABNORMAL) Strep A Nucleic Acid (10/10/2024 1:28 PM EDT) IDNOW SERIAL# [id number] [facility] Strep A Nucleic Acid Positive(A ) Negative [facility] Comment:All test results mus t be correlated with clinical findings.This test has not been evaluated for monitoring treatment ofinfection.Additional follow-up testing using the culture method isrequired if the result is negative and clinical symptomspersist, or in the event of an acute rheumatic feveroutbreak. 10/10/2024 1:28 PM EDT 10/10/2024 1:36 PM EDT us Generic External Data Provider LAB MICROBIOLOGY - GENERAL ORDERABLES Final Result [facility] [address] [place], [place] [phone] * SARS-CoV-2 RNA, Influenza A/B, and RSV RNA, Ql NAAT (10/10/2024 1:28 PM EDT) Influenza A PCR NEGATIVE Negative [facility] Influenza B PCR NEGATIVE Negative [facility] Resp Syncy Virus RNA Qual PCR NEGATIVE Negative [facility] SARS COV2 PCR NEGATIVE Negative [facility] Comment:All test results mus t be correlated with clinical findings.Negative results do not preclude SARS-CoV2, influenza Avirus, influenza B virus and/or RSV infectionand should not be used as the sole basis for treatment orother patient management decisions. Negative results must becombined with clinical observations, patient history, andepidemiological information.This test has not been evaluated for monitoring treatment ofinfection.This test has been authorized by the FDA under an EmergencyUse Authorization (EUA) for use by authorized laboratories.Testing performed on the [employer] GeneXpert utilizingreal-time RT-PCR.All SARS CoV2 and positive influenza A/B results arereported to [facility]. 10/10/2024 1:28 PM EDT 10/10/2024 1:36 PM EDT Generic External Data Provider LAB MICROBIOLOGY - GENERAL ORDERABLES Final Result [facility] [address] [place] [phone] * (ABNORMAL) Lipid Panel, Standard (10/27/2022 2:36 PM EDT) Cholesterol, Total 191 <200 mg/dL [facility] HDL Cholesterol 38(L) > OR = 50 mg/dL [facility] Triglycerides 215(H) <150 mg/dL [facility] Comment: If a non-fasting specimen was collected, consider repeat triglyceride testing on a fasting specimen if clinically indicated. Davis et al. J. of Clin. Lipidol. 2015;9:129-169. LDL Cholesterol 119(H) mg/dL (calc) [facility] Comment: Reference range: <100 Desirable range <100 mg/dL for primary prevention; ?? <70 mg/dL for patients with CHD or diabetic patients with > or = 2 CHD risk factors. LDL-C is now calculated using the Freddie calculation, which is a validated novel method providing better accuracy than the Friedewald equation in the estimation of LDL-C. Isaac SANDOVAL et al. HARMEET. 2013;310(19): 7433-0229 (http://education.[employer]/faq/HLZ167) Chol/HDLC Ratio 5.0(H) <5.0 (calc) [facility] Non-HDL Cholesterol 153(H) <130 mg/dL (calc) [facility] Comment: For patients with diabetes plus 1 major ASCVD risk factor, treating to a non-HDL-C goal of <100 mg/dL (LDL-C of <70 mg/dL) is considered a therapeutic option. Blood Venous blood specimen / Unknown 10/27/2022 2:36 PM EDT 10/27/2022 2:37 PM EDT Narrative [facility] - 10/28/2022 3:03 AM EDT FASTING:YES FASTING: YES Susan Nagy INSTRUMENTATION SUPERVISOR LAB BLOOD ORDERABLES Final Result [facility] [address], [place] [address] [facility] [address] [place] [phone] from Last 3 Months or Most Recently Relevant to Health Maintenance Insurance [facility] C[facility] [place] ADULT Care Teams Auto Transmission Specialist Relationship Specialty Start Date End Date Kusum Austin NP [address] [place] [phone] PCP - General Family Medicine 09/17/23
--- OUTSIDE RECORDS SUMMARY | 2024-10-10 17:36 | XMS_ITS | Clinical Summary ---
Author Organization [facility] Address [address] [place] [address] Phone Care Team Providers Care Energy Attorney Name Role Phone Unavailable Primary Care Provider Unavailabl e Immunizations Immunization Administration Dates Next Due DTP 02/16/1991, 9,04/26/1987,1986,1986 Hep B, ped/adol 09/25/1998,05/07/1998,01/16/1998 Hib ([facility]) 05/14/1989 MMR 01/16/1998,10/16/1987 OPV 02/16/1991, 9,01/31/1987,1986 [facility] 5 Lf t etanus toxoid, PF, adsorbed 10/12/1998 Social History Tobacco Use Types Packs/Day Years Used Date Smoking Tobacco: Never Assessed Comments Unknown Sex and Gender Information Value Date Recorded Sex Assigned at Not on file Legal Sex Female 4:11 PM EDT Gender Identity Not on file Sexual Orientation Not on file Plan of Treatment Health Maintenance Due Date Last Done Comments DTaP,Tdap,and Td Vaccines (6 - Tdap) 10/13/1998 10/12/1998, 02/16/1991, 05/14/1989, Additional history exists Varicella Vaccines (1 of 2 - 13+ 2-dose series) 1999 Influenza Vaccines (#1) 2024 COVID-19 Vaccine (2023- season) 2024 HIB Vaccines Completed 05/14/1989 IPV Vaccines Completed 02/16/1991, 03/1989, 01/31/1987, Additional history exists MMR Vaccines Completed 01/16/1998, 10/16/1987 Hepatitis B Vaccines Completed 09/25/1998, 05/07/1998, 01/16/1998 HPV Vaccines Aged Out No longer eligi ble based on patient's age to complete this topic Hepatitis A Vaccines Aged Out No long er eligible based on patient's age to complete this topic Men B Vaccine Aged Out No longer elig ible based on patient's age to complete this topic Meningococcal Vaccine Aged Out No rishi julito eligible based on patient's age to complete this topic Pneumococcal Vaccine Aged Out No long er eligible based on patient's age to complete this topic
== END 2024-10-10 14:49 | disposition home or self-care (01) ==
LOC: HO.ED 14:44
PROVIDERS: Physician Assistant; Emergency Provider Emergency Medicine
DX: J02.0 Streptococcal pharyngitis (principal); R05.9 Cough, unspecified; Z03.818 Encounter for observation for suspected exposure to other biological agents ruled out
CPT/HCPCS: 0241U; 87651; 99282; 99283

== ENCOUNTER 2024-11-25 16:00 | Emergency (ER) | payer MEDICAID, SELFPAY ==
--- NOTE | 2024-11-25 16:02 | ECG_ITS ---
Test Reason : cp Blood Pressure : */* mmHG Vent. Rate : 76 BPM Atrial Rate : 76 BPM P-R Int : 124 ms QRS Dur : 76 ms QT Int : 372 ms P-R-T Axes : 21 -16 0 degrees QTcB Int : 418 ms Normal sinus rhythm Low voltage QRS Borderline ECG When compared with ECG of 20-Feb-2024 22:12, No significant change was found Referred By: Frank Stearns Electronically Signed By: Vik Guajardo
[2024-11-25 16:06] VITALS: BP 124/77; PULSE 75; RESP 18; TEMP 36.6; O2SAT 99; BMI 29.9
--- NOTE | 2024-11-25 16:14 | ED.GENADULT ---
HPI - General Adult General Chief complaint: Anxiety Stated complaint: Chest pain Time Seen by Provider: 11/25/24 16:52 History of Present Illness HPI narrative: Patient is a 31-year-old female with a history of anxiety. Presented today feeling anxious. Patient ran out of her Lexapro, Franciscoivan, Ambien. All those medications out a few months ago. Patient had some mild chest tightness. There is no fever no chills no cough no congestion or upper respiratory symptoms not on control. No history of diabetes, hypertension, high cholesterol, no history of NE. positive history of occasional smoking. Patient is from home. No travel history no leg swelling. Not on control. No history of blood clots. Patient not suicidal not homicidal does want help with her anxiety. Related Data Previous Rx's ?Medication ?Instructions ?Recorded cyclobenzaprine 10 mg tablet 10 mg PO TID PRN muscle spasm #10 05/23/20 tabs ibuprofen 800 mg tablet 800 mg PO Q8H PRN pain #14 tabs 05/23/20 lidocaine 5 % topical patch 1 patch topical DAILY pain #15 ea 05/23/20 (Lidoderm) prednisone 20 mg tablet 40 mg (2 x 20 mg) PO DAILY 05/23/20 inflammation 5 days #10 tabs ketorolac 10 mg tablet 10 mg PO TID 5 days #15 tabs 04/22/21 acetaminophen 325 mg capsule 650 mg (2 x 325 mg) PO Q6H PRN 06/03/21 (Tylenol) pain (scale score 4-6) #30 caps doxycycline hyclate 100 mg tablet 100 mg PO BID Hidradenitis #20 06/04/21 tabs cyclobenzaprine 10 mg tablet 10 mg PO BEDTIME PRN muscle spasm 03/10/22 #7 tabs lidocaine 5 % topical patch 1 patch topical DAILY PRN pain #15 03/10/22 ea ondansetron 4 mg disintegrating 4 mg PO Q6-8H PRN nausea and 05/25/22 tablet vomiting #7 tabs cefuroxime axetil 500 mg tablet 500 mg PO BID 5 days #10 tabs 06/14/22 cyclobenzaprine 5 mg tablet 5 mg PO TID PRN muscle spasm #14 06/14/22 tabs lidocaine 4 % topical patch 1 patch topical TID PRN pain #10 ea 12/10/22 naproxen 500 mg tablet 500 mg PO BID PRN pain #30 tabs 06/14/22 amoxicillin 875 mg-potassium 1 tab PO BID 7 days #14 tabs 07/05/22 clavulanate 125 mg tablet amoxicillin 875 mg-potassium 1 tab PO BID dog bite 10 days #20 07/07/22 clavulanate 125 mg tablet tabs cyclobenzaprine 10 mg tablet 10 mg PO TID PRN muscle spasm #14 11/17/22 tabs lidocaine 5 % topical patch 1 patch topical DAILY #15 ea 11/17/22 (Lidoderm) naproxen 500 mg tablet 500 mg PO BID PRN pain #20 tabs 11/17/22 doxycycline monohydrate 100 mg 100 mg PO BID #14 caps 01/31/23 capsule ondansetron 4 mg disintegrating 4 mg PO Q8H PRN nausea and 07/25/23 tablet vomiting 4 days #10 tabs cyclobenzaprine 10 mg tablet 10 mg PO TID PRN muscle spasm #15 09/05/23 tabs dexamethasone 4 mg tablet 4 mg PO BID #6 tabs 09/05/23 qnedlckncf-pofottapsiksy-vbpbcswz 1 tab PO Q6H PRN headache #10 tabs 02/01/24 50 mg-325 mg-40 mg tablet cephalexin 500 mg capsule 500 mg PO QID 10 days #40 caps 02/20/24 ibuprofen 600 mg tablet 600 mg PO Q6H PRN fever or pain 02/20/24 #30 tabs amoxicillin 875 mg-potassium 1 tab PO Q12H 10 days #20 tabs 10/10/24 clavulanate 125 mg tablet lorazepam 0.5 mg tablet (Ativan) 0.5 mg PO TID PRN anxiety #7 tabs 11/25/24 Allergies Allergy/AdvReac Type Severity Reaction Status Date / Time No Known Allergies Allergy Verified 11/25/24 16:09 Review of Systems Review of Systems: Positive chest tightness PMFSH Past Medical History Medical History COVID-19 Asthma Surgical History History of axillary surgery (~2020) History of axillary surgery History of appendectomy Family History Family History Brother Leukemia Social History Social History Alcohol intake: never Patient Tobacco Use Status: Never used Tobacco Advance Directives: No Advance Directives Information Provided: No Physical Exam ED Vital Signs: Vital Signs - 24 hr 11/25/24 16:06 11/25/24 17:32 Temperature 98 F Pulse Rate 75 73 Respiratory Rate 18 14 Blood Pressure 124/77 117/78 Pulse Oximetry 99 100 Oxygen Delivery Method Room Air BMI result Body Mass Index 29.9 Appearance: Alert. Oriented X3. No acute distress. Eyes: Pupils equal, round and reactive to light. ENT: Pharynx normal. Neck: Normal inspection. Neck supple. No lymph nodes noted. No crepitus CVS: Normal heart rate and rhythm. Pulses normal. Normal S1 and S2 Respiratory: No respiratory distress. Breath sounds normal. No Wheezing. No rales Abdomen: Soft and nontender. No rigidity. No distention. good BS x4 Skin: Skin warm and dry. Normal skin color. Normal skin turgor. Extremities: No lower extremity edema. Neurovascular intact to all extremities. No Lacerations. No Rash Neuro: Oriented X 3. No motor deficit. No sensory deficit. Moving all extermities. No slurred speech Course Course Course Narrative: RME, this is a rapid medical exam performed by Shivam Stearns please refer to primary provider for complete H&P- 39-year-old female with past medical history significant for anxiety, depression presents for evaluation of anxiety and what she felt was a panic attack this morning. She reports that she has a history of mild anxiety that became more severe when her father about a year ago. She reports that she was started on Ativan, Ambien, and Lexapro and was doing okay until she ran out 3 months ago. This morning while she was in the shower she felt what she believes to be a panic attack prompting her to seek care today. She denies any suicidal thoughts but is interested in speaking to the care team Medical Decision Making Medical Decision Making MDM Narrative: Patient has a history of anxiety. No significant history of ACS. No history of diabetes, hypertension, high cholesterol. Positive history of occasional smoking never had a heart attack. Feels anxious. Similar to previous bouts of anxiety. My interpretation of her EKG showed a sinus rhythm heart rate is 70 NM QRS QTC normal there is T-wave inversion over lead 3. This appears to be old. When compared to a previous EKG. There is no acute ST segment elevation. Patient's troponin was negative. In the setting of atypical history, 1 risk factor 39 years old negative enzymes patient's heart score is less than 3. Will have patient follow-up on an outpatient basis. Patient has no suicidal homicidal ideation. Was seen by crisis. [place] patient symptoms does not warrant admission. Recommend outpatient follow-up. Patient previously was on Lexapro, Ativan, Ambien. Will have patient get a few tablets of Ativan for anxiety. Close follow-up on an outpatient basis with psychiatry. She is currently in stable condition. Will discharge home Differential Diagnosis Differential Diagnoses: The differential diagnosis associated with the presentation includes Anxiety, ACS, pneumonia, musculoskeletal chest pain Admission/Observation Consideration of admission/observation: Escalation of care including admission/observation considered Consult Healthcare Provider Management of the patient was discussed with: Behavioral Health Provider Lab Data [facility] Lab Attestation statement: I reviewed the patient's lab results. 11/25/24 16:32 11/25/24 16:32 Labs: Lab Results 11/25/24 11/25/24 Range/Units 16:32 16:37 WBC 9.1 (4.8-10.8) X10*3/uL RBC 4.69 (4.20-5.50) X10*6/uL Hgb 11.9 L (12.0-16.0) g/dl Hct 36.5 L (37.0-47.0) % MCV 77.8 L (80.0-98.0) fL MCH 25.4 L (27.0-33.0) pg MCHC 32.6 (31.0-35.0) g/dl RDW 14.6 (11.0-16.0) % Plt Count 411 H (160-400) X10*3/uL MPV 11.0 (9.4-12.3) fL Immature Gran % (Auto) 0.3 (0.0-0.4) % Neut % (Auto) 68.1 (45-73) % Lymph % (Auto) 24.9 (20-40) % [place] % (Auto) 4.8 (2-11) % Eos % (Auto) 1.2 (0-4) % Baso % (Auto) 0.7 (0-2) % Lymph # (Auto) 2.3 (1.2-4.9) X10*3/uL [place] # (Auto) 0.4 (0.1-1.2) X10*3/uL Eos # (Auto) 0.1 (0.0-0.4) X10*3/uL Baso # (Auto) 0.1 (0.0-0.2) X10*3/uL Abs Immat Gran (auto) 0.03 (0.00-0.03) X10*3/uL Absolute Neuts (auto) 6.2 (2.0-8.3) x10*3/uL Absolute Nucleated RBC 0.000 (0.0-0.012) X10*3/uL Nucleated RBC % (auto) 0.0 (0.0-0.2) /100WBC Sodium 142 (135-145) mmol/L Potassium 4.0 (3.3-5.1) mmol/L Chloride 110 H (96-108) mmol/L Carbon Dioxide 26 (22-29) mmol/L Anion Gap 10 L (12-20) BUN 12 (9-16) mg/dL Creatinine 0.81 (0.5-1.4) mg/dL Estim Creat Clear Calc 102.8 Estimated GFR > 60 Random Glucose 95 (60-115) mg/dL Calcium 9.2 (8.4-10.2) mg/dL Total Bilirubin 0.2 (0.0-1.0) mg/dL AST 20 (5-31) U/L ALT 18 (0-31) U/L Alkaline Phosphatase 74 (39-117) U/L Troponin I High Sens < 2.7 (<3.5-17.0) ng/L Total Protein 8.6 H (6.5-8.0) g/dL Albumin 4.6 (3.5-5.0) g/dL Urine Test NEGATIVE (NEGATIVE) Urine Opiates Screen Not Detected (Not Detect) Ur Buprenorphine Scrn Not Detected (Not Detect) ng/mL Ur Oxycodone Screen Not Detected (Not Detect) ng/mL Urine Methadone Screen Not Detected (Not Detect) ng/mL Urine Fentanyl Screen Not Detected (Not Detect) Ur Barbiturates Screen Not Detected (Not Detect) Ur Phencyclidine Scrn Not Detected (Not Detect) Ur Amphetamines Screen Not Detected (Not Detect) U Benzodiazepines Scrn Not Detected (Not Detect) Urine Cocaine Screen Not Detected (Not Detect) U Marijuana (THC) Screen Not Detected (Not Detect) Independent Interpretation I performed an independent interpretation of an: EKG (Sinus heart rate is 70 NM QRS QTC normal no acute ST segment elevation) Radiology Impression Discussion of test interpretation with radiology: I have reviewed the radiologist's reading. External Record Review Prior EKG reviewed Social Determinants Patient?s care significantly limited by Social Determinants of Health including: Problems related to primary support group Discharge Plan Discharge Clinical Impression: Chest pain, Anxiety Patient Disposition: Home, Self-Care Instructions: Chest Pain (ED), Anxiety (ED) Prescriptions: New lorazepam [Ativan] 0.5 mg tablet 0.5 mg PO TID PRN (Reason: anxiety) Qty: 7 0RF No Action acetaminophen [Tylenol] 325 mg capsule 650 mg PO Q6H PRN (Reason: pain (scale score 4-6)) Qty: 30 2RF doxycycline hyclate 100 mg tablet 100 mg PO BID Qty: 20 0RF cyclobenzaprine 10 mg tablet 10 mg PO TID PRN (Reason: muscle spasm) Qty: 10 0RF ibuprofen 800 mg tablet 800 mg PO Q8H PRN (Reason: pain) Qty: 14 0RF prednisone 20 mg tablet 40 mg PO DAILY 5 Days Qty: 10 0RF lidocaine [Lidoderm] 5 % adhesive patch,medicated 1 patch topical DAILY Qty: 15 0RF Rx Instructions: leave on most painful area for up to 12 hrs ketorolac 10 mg tablet 10 mg PO TID 5 Days Qty: 15 0RF cyclobenzaprine 10 mg tablet 10 mg PO BEDTIME PRN (Reason: muscle spasm) Qty: 7 0RF lidocaine 5 % adhesive patch,medicated 1 patch topical DAILY PRN (Reason: pain) Qty: 15 0RF Rx Instructions: leave on most painful area for up to 12 hrs ondansetron 4 mg tablet,disintegrating 4 mg PO Q6-8H PRN (Reason: nausea and vomiting) Qty: 7 0RF amoxicillin-pot clavulanate 875-125 mg tablet 1 tab PO BID 7 Days Qty: 14 0RF cefuroxime axetil 500 mg tablet 500 mg PO BID 5 Days Qty: 10 0RF cyclobenzaprine 5 mg tablet 5 mg PO TID PRN (Reason: muscle spasm) Qty: 14 0RF naproxen 500 mg tablet 500 mg PO BID PRN (Reason: pain) Qty: 30 0RF lidocaine 4 % adhesive patch,medicated 1 patch topical TID PRN (Reason: pain) Qty: 10 0RF amoxicillin-pot clavulanate 875-125 mg tablet 1 tab PO BID 10 Days Qty: 20 0RF ondansetron 4 mg tablet,disintegrating 4 mg PO Q8H PRN (Reason: nausea and vomiting) 4 Days Qty: 10 0RF dexamethasone 4 mg tablet 4 mg PO BID Qty: 6 0RF cyclobenzaprine 10 mg tablet 10 mg PO TID PRN (Reason: muscle spasm) Qty: 15 0RF szjamoxign-fcocnaidcinwt-tfxb 50-325-40 mg tablet 1 tab PO Q6H PRN (Reason: headache) Qty: 10 0RF amoxicillin-pot clavulanate 875-125 mg tablet 1 tab PO Q12H 10 Days Qty: 20 0RF cyclobenzaprine 10 mg tablet 10 mg PO TID PRN (Reason: muscle spasm) Qty: 14 0RF naproxen 500 mg tablet 500 mg PO BID PRN (Reason: pain) Qty: 20 0RF lidocaine [Lidoderm] 5 % adhesive patch,medicated 1 patch topical DAILY Qty: 15 0RF Rx Instructions: leave on most painful area for up to 12 hrs doxycycline monohydrate 100 mg capsule 100 mg PO BID Qty: 14 0RF cephalexin 500 mg capsule 500 mg PO QID 10 Days Qty: 40 0RF ibuprofen 600 mg tablet 600 mg PO Q6H PRN (Reason: fever or pain) Qty: 30 0RF [facility] - Vik Guajardo MD [Physician] - 11/28/24 Print Language: [place] Verdean
[2024-11-25 16:43] LABS: MANUAL DIFF FLAG NO
[2024-11-25 16:46] LABS: Basophils Absolute Auto 0.1 X10*3/uL (0.0-0.2); Basophils Percent Auto 0.7 % (0-2); Eosinophils Absolute Auto 0.1 X10*3/uL (0.0-0.4); Eosinophils Percent Auto 1.2 % (0-4); Hematocrit 36.5 % (37.0-47.0); Hemoglobin 11.9 g/dl (12.0-16.0); Imm Gran Abs Auto 0.03 X10*3/uL (0.00-0.03); Imm Gran Pct Auto 0.3 % (0.0-0.4); Lymphocytes Absolute Auto 2.3 X10*3/uL (1.2-4.9); Lymphocytes Percent Auto 24.9 % (20-40); Mean Corpuscular HGB Conc 32.6 g/dl (31.0-35.0); Mean Corpuscular Hemoglobin 25.4 pg (27.0-33.0); Mean Corpuscular Volume 77.8 fL (80.0-98.0); Monocytes Absolute Auto 0.4 X10*3/uL (0.1-1.2); Monocytes Percent Auto 4.8 % (2-11); Neutrophils Absolute Auto 6.2 x10*3/uL (2.0-8.3); Neutrophils Percent Auto 68.1 % (45-73); Platelet Count 411 X10*3/uL (160-400); Red Blood Count 4.69 X10*6/uL (4.20-5.50); Red Cell Distribution Width 14.6 % (11.0-16.0); White Blood Count 9.1 X10*3/uL (4.8-10.8)
[2024-11-25 16:47] LABS: UPreg QC Valid YES; Urine Pregnancy NEGATIVE (NEGATIVE)
[2024-11-25 16:57] LABS: Amphetamine Screen Urine Not Detected (Not Detect); Barbiturates, Urine Not Detected (Not Detect); Benzodiazepines Screen Urine Not Detected (Not Detect); Buprenorphine Scr Not Detected (Not Detect); Cannabinoid Screen Urine Not Detected (Not Detect); Cocaine Screen Urine Not Detected (Not Detect); Fentanyl, urine Not Detected (Not Detect); Methadone Screen, Urine Not Detected (Not Detect); Opiate Screen Urine Not Detected (Not Detect); Oxycodone Screen Urine Not Detected (Not Detect); Phencyclidine Screen Urine Not Detected (Not Detect)
[2024-11-25 17:08] LABS: Alanine Aminotransferase 18 U/L (0-31); Albumin Level 4.6 g/dL (3.5-5.0); Alkaline Phosphatase 74 U/L (39-117); Anion Gap 10 (12-20); Aspartate Amino Transferase 20 U/L (5-31); Bilirubin Total 0.2 mg/dL (0.0-1.0); Blood Urea Nitrogen 12 mg/dL (9-16); Calcium 9.2 mg/dL (8.4-10.2); Carbon Dioxide 26 mmol/L (22-29); Chloride 110 mmol/L (96-108); Creatinine Clr Calc Pharmacy 102.8; Estimated Glomerular Filt Rate > 60; Glucose Random 95 mg/dL (60-115); Sodium 142 mmol/L (135-145); Total Protein 8.6 g/dL (6.5-8.0)
--- NOTE | 2024-11-25 17:12 | PC.NURSE ---
Care Team at the bedside
[2024-11-25 17:32] VITALS: BP 117/78; PULSE 73; RESP 14; O2SAT 100
[2024-11-25 17:54] LABS: Troponin-I High Sensitivity < 2.7 ng/L (<3.5-17.0)
--- NOTE | 2024-11-25 17:57 | PC.NURSE ---
Patient is a 39 yo female who presents with a anxiety and a panic attack with assoc chest pain and sob. Psychiatrist forgot to fill patients prescription and patient is in a stressful situation at home. Denies SI/HI. Previous history of bilateral axillary hidradenitis and underwent bilateral axillary excisions for persistent drainage and asthma. Lungs clear bilat. Respirations even and non-labored. Abdomen soft, non-tender. Evaluated by the care team.
[2024-11-25 18:20] VITALS: BP 117/78; PULSE 73; RESP 14; TEMP 36.7; O2SAT 100
--- NOTE | 2024-11-29 15:30 | MHC.CARE ---
RAD Team faxed PHP referral for this pt. Will follow up
== END 2024-11-25 18:22 | disposition home or self-care (01) ==
PROVIDERS: Physician Assistant; Emergency Provider Emergency Medicine Emergency Medical Services
DX: R07.89 Other chest pain (principal); F41.9 Anxiety disorder, unspecified; Z79.899 Other long term (current) drug therapy; Z51.81 Encounter for therapeutic drug level monitoring
CPT/HCPCS: 36415; 80053; 80307; 81025; 84484; 85025; 93005; 99284; 99285; S9485

== ENCOUNTER → 2024-11-25 16:02 | Outpatient (BNV) | payer MEDICAID, SELFPAY | PROVIDERS: Emergency Provider Emergency Medicine Emergency Medical Services; Visit Provider Internal Medicine Cardiovascular Disease | DX: R07.9 Chest pain, unspecified (principal) | CPT/HCPCS: 93010 ==

== ENCOUNTER 2024-12-08 14:51 | Outpatient (AMB) | payer MEDICAID, SELFPAY ==
--- NOTE | 2024-12-08 15:18 | A.OFFVIS_ITS ---
Vital Signs 12/08/24 15:19 Height 5 ft 6 in Weight 185 lb 10.067 oz BMI 30.0 BP 110/72 Blood Pressure Location Lt brachial Position Sitting Pulse 66 Pulse Source Monitor Intake Visit Reasons: [facility] [place] f[place] Intake Note: [facility] f/up Solutions Architect Required: No Accompanied by: Self / Same As Patient Allergies No Known Allergies Allergy (Verified 11/25/24 16:09) Medication List - Last Reconciled 12/08/24 by Arsh Pop NP acetaminophen (Tylenol) 650 mg (2 x 325 mg) PO Q6H PRN escitalopram oxalate 10 mg PO DAILY lorazepam (Ativan) 0.5 mg PO TID PRN zolpidem 5 mg PO BEDTIME PRN HPI Comments Details: This is a 39-year-old female patient referred for cardiac evaluation after recent emergency room visit for chest pain. Patient with no known history of cardiomyopathy, coronary artery disease, or ischemic heart disease. Patient was recently seen in the emergency room for anxiety during which time patient had reported some chest tightness, however, workup in the emergency room was negative. Patient states that over a year patient has been having some intermittent random central chest pain that can happen with rest as well as with exertion, states that it is also reproducible at times. Patient notes that she does get some shortness of breath with this. Since her father's a year ago, patient has noticed increased frequency in these symptoms. Patient does note a strong family history of coronary artery disease. Patient is otherwise denying any associated symptoms of palpitations, dizziness, orthopnea or PND, leg edema, presyncope, or syncope. [facility] Medical History COVID-19 Asthma Surgical History History of axillary surgery (~2020) History of axillary surgery History of appendectomy Family History Brother Leukemia Father Coronary artery disease Paternal Grandfather Coronary artery disease Social History Alcohol intake: never Patient Tobacco Use Status: Never used Tobacco Review of Systems Const Denies chills, Denies fatigue, Denies fever(s), Denies frequent falls, Denies weakness, Denies weight gain and Denies weight loss ENT Denies dizziness Card Reports chest pain, Reports chest pain at rest, Reports chest pain with activity, Denies palpitations, Denies dyspnea and Denies dyspnea on exertion Resp Denies cough, Denies dyspnea and Denies dyspnea on exertion GI Denies hematochezia Musc Denies abnormal gait, Denies muscle weakness, Reports numbness, Reports radiating pain into limb and Reports tingling Neuro Denies abnormal gait, Denies dizziness, Denies frequent falls, Reports numbness, Reports tingling and Denies weakness Endo Denies fatigue and Denies palpitations Physical Exam Vital Signs: Last Vital Signs Pulse 66 12/08/24 15:19 BP 110/72 12/08/24 15:19 BMI result Body Mass Index 30.0 Const General: cooperative, healthy appearing, comfortable and no acute distress Orientation/consciousness: patient oriented x3 HEENT Head: Yes normal to inspection Neck Neck: Yes normal visual inspection, Yes trachea midline and Yes supple Chest Chest palpation & inspection: normal inspection of the chest Resp Effort & Inspection: normal respiratory effort Auscultation: clear to auscultation bilaterally, no crackles, no rales, no rhonchi and no wheezes Cardio Jugular venous distension: no JVD Palpation: normal PMI Rate: regular rate Rhythm: regular rhythm Heart sounds: S1 normal heart sound present, S2 normal heart sound present, no click, no gallops, no murmurs and no rubs Peripheral pulses: Peripheral pulses 2+ throughout GI Inspection: Yes normal to inspection Palpation (GI): Soft to palpation Auscultation: normal bowel sounds Skin General skin exam: no rashes or lesions noted Neuro General: patient oriented x3 Extrem General: Yes normal to inspection, No no pedal edema and No calf tenderness Psych Appearance: grossly normal Mental Status: mental status grossly normal Speech and movement: Normal speech and movement present Office Procedures EKG Details: EKG today shows normal sinus rhythm, rate 66 beats per minute, right axis deviation, nonspecific T-wave abnormality, [place], [place]. [id number], Complete Assessment & Plan Assessment & Plan (1) Chest pain: Code(s): R07.9 - Chest pain, unspecified Category: Medical (2) Shortness of breath: Code(s): R06.02 - Shortness of breath Category: Medical (3) Hospital discharge follow-up: Code(s): Z09 - Encounter for follow-up examination after completed treatment for conditions other than malignant neoplasm Plan Patient's workup was negative in the ER. Patient's chest pain sounding very atypical in nature and is more likely stress versus musculoskeletal related. However given her nonspecific T-wave abnormalities and strong family history of coronary artery disease, we will assess for cardiac etiology. We will get a echocardiogram to assess for LV systolic and diastolic dysfunction, wall motion abnormalities, or valvular pathology. We will also get a stress echocardiogram to look for any ischemic changes. Further treatment based findings. Advised heart healthy diet, regular exercise, losing weight, and aggressive management of vascular risk factors. Follow up in the office after completion of these tests. In the interim, patient will call the office with any concerns or change in symptoms. Advised patient to seek ER care in case of exertional chest pain not resolved with rest. This note was generated using voice recognition software. While every effort has been made to ensure accuracy and proper toe former, there may be occasional errors that could affect the content or meaning of the described symptoms. Orders: Orders AMB EKG-In Office Today R07.9 - Chest pain, unspecified CA echo transthoracic complete Today R06.02 - Shortness of breath, R07.9 - Chest pain, unspecified CA echo stress exercise Today R07.9 - Chest pain, unspecified Coding Level of Care Code Tele New Pt Level 4 (72882) Complex EM visit Add On G2211 Diagnoses Chest pain R07.9 Shortness of breath R06.02 Hospital discharge follow-up Z09 CPT Codes EKG - CPT: [id number], Complete ([id number]) Time Spent (min) 32 Comment Time spent in reviewing the chart, test results, assessment, counseling and documentation.
[2024-12-08 15:19] VITALS: BP 110/72; PULSE 66
--- OUTSIDE RECORDS SUMMARY | 2024-12-08 17:33 | XMS_ITS | Clinical Summary ---
Author Organization [employer] Address [address] [place] [address] [address] [place] [address] Care Team Providers Care Computed Tomography Scanner Operator Name Role Phone Kusum Austin NP Primary Care Provider [phone] Allergies No known active allergies Medications ketotifen [...] the morning. 90 tablet 1 4 Active cyclobenzaprine (Flexeril) [...] wheezing. 18 g 4 05/05/20 25 Active hydrOXYzine HCl (Atarax) 25 MG tabletIndications :Anxiety Take 1 tablet (25 mg) by mouth every 8 (eight) hours if needed for anxiety. 90 tablet 5 Active Active Problems Problem Noted Date Diagnosed [...] Encounters Date Type Department Care Team Description 10/27/2024 Telephone [facility] [address] [place] [address] Maryuri Riley RN 10/27/2024 Refill [facility] [address] [place], [place] [phone] Kusum Austin NP Anxiety 09/16/2024 Population Health Risk Score [facility] () Department [address] [phone] Provider, Population Health Generic 09/12/2024 Telephone [facility] [address] [place] [address] Preston Hong DDS from Last 3 Months Immunizations Immunization Administration Dates Next Due DTP 02/16/1991, 9,04/26/1987,1986,1986 Hep B, Adolescent or Pediatric 09/25/1998,1997,01/16/1998 Hib ([facility]) 05/14/1989 Influenza injectable quadriv alent preservative free [...] Care Team (Late st Contact Info) Description 01/04/2025 10:00 AM EDT Office Visit [facility] [address] [place] [address] Preston Hong, DDS [address] [place] [address] Health Maintenance Due Date Last Done Comments Dental Oral Exam 1986 Dental Prophylaxis 1986 Dental X-Ray: Full Mouth 1986 HIV Screening 1986 Disability Screening 1986 Alcohol/Substance Use Screening 1998 DTaP/Tdap/Td Vaccines (6 - Tdap) 10/13/1998 10/12/1998, 02/16/1991, 05/14/1989, Additional history exists Family Planning (PISQ) 2001 Hepatitis C Screening 2004 Pneumococcal Vaccine: Pediatrics (0 to 5 Years) and At-Risk Patients (6 to 49) Years) (1 of 2 - PCV) 2005 Pap Smear 2007 Cervical Cancer Screening 2016 HPV/Cotest 2016 Depression Monitoring 06/27/2023 12/26/2022, 023 SDOH Screening 10/28/2023 10/27/2022 COVID-19 Vaccine ( season) 2024 04/11/2021, 03/21/2021 Dental X-Ray: Bitewings 09/01/2024 08/31/2023, 06/27 Influenza Vaccine (Season Ended) 2025 05/06/2022 Tobacco Screening 05/05/2025 05/05/2024 Lipid Panel 10/28/2027 [...] patient's age to complete this topic Meningococcal B Vaccine Aged Out No l onger eligible based on patient's age to complete [...] Procedure Name Priority Date/Time Associated Diagnosis Comments DRUG MONITOR, PANEL 1, SCREEN, URINE Routine 11/25/2024 4:37 PM EDT HIGH SENSITIVITY TROPONIN I Routine 11/25/2024 4:32 PM EDT COMPREHENSIVE METABOLIC PANEL Routine 11/25/2024 4:32 PM EDT SARS COV2/INFLUENZA A/B AND RSV RNA QL NAAT Routine 10/10/2024 1:28 PM EDT STREP A NUCLEIC ACID Routine 10/10/2024 1:28 PM EDT BITEWING - SINGLE RADIOGRAPHIC IMAGE Routine 08/31/2023 11:30 AM EST Dental abscess Dental caries LIPID PANEL, STANDARD Routine 10/27/2022 2:36 PM EDT Elevated triglycerides with high cholesterol from Last 3 Months or Most Recently Relevant to Health Maintenance Results * Drug Monitoring, Panel 1, Screen, Urine (11/25/2024 4:37 PM EDT) Opiate Screen Urine Not Detected Not Detect [facility] Comment:Opiate cut-off is 30 0 ng/mL.Positive results are unconfirmed and should not be used fornon-medical purposes. Barbiturates, Urine Not Detected Not Detect [facility] Comment:Barbiturate cut-off is 200 ng/mL.Positive results are unconfirmed and should not be used fornon-medical purposes. Phencyclidine Screen Urine Not Detected Not Detect [facility] Comment:Phencyclidine cut-of f is 25 ng/mL.Positive results are unconfirmed and should not be used fornon-medical purposes. Amphetamine Screen Urine Not Detected Not Detect [facility] Comment:Amphetamine cut-off is 1000 ng/mL.Positive results are unconfirmed and should not be used fornon-medical purposes. Benzodiazepines Screen Urine Not Detected Not Detect [facility] Comment:Benzodiazepine cut-o ff is 200 ng/mL.Positive results are unconfirmed and should not be used fornon-medical purposes. Cocaine Screen Urine Not Detected Not Detect [facility] Comment:Cocaine cut-off is 3 00 ng/mL.Positive results are unconfirmed and should not be used fornon-medical purposes. Cannabinoid Screen Urine Not Detected Not Detect [facility] Comment:Cannabinoid cut-off is 50 ng/mL.Positive results are unconfirmed and should not be used fornon-medical purposes. Methadone Screen, Urine Not Detected Not Detect ng/mL [facility] Comment:Methadone cut-off is 300 ng/mL.Positive results are unconfirmed and should not be used fornon-medical purposes. FENTANYL URINE Not Detected Not Detect [facility] Comment:Fentanyl cut-off is 1 ng/mL.Positive results are unconfirmed and should not be used fornon-medical purposes. Oxycodone Urine Screen Not Detected Not Detect ng/mL [facility] Comment:Oxycodone cut-off is 100 ng/mL.Positive results are unconfirmed and should not be used fornon-medical purposes. Buprenorphine Screen Not Detected Not Detect ng/mL [facility] Comment:Buprenorphine cut-of f is 5 ng/mL.Positive results are unconfirmed and should not be used fornon-medical purposes. 11/25/2024 4:37 PM EDT 11/25/2024 4:41 PM EDT us Generic External Data Provider LAB URINE ORDERAB LES Final Result [facility] [address] [place] [address] [phone] * High Sensitivity Troponin I (11/25/2024 4:32 PM EDT) Pathologist [facility] TROPONIN I HIGH SENSITIVITY <2.7 <3.5 - 17.0 ng/L [facility] Comment:The Kelsey high sens itivity Troponin-I results should beused in conjunction with other diagnostic information suchas ECG, clinical observations and information, and patientsymptoms to aid in the diagnosis of PR. 11/25/2024 4:32 PM EDT 11/25/2024 5:32 PM EDT us Generic External Data Provider LAB BLOOD ORDERAB LES Final Result [facility] [address] [place] [phone] * (ABNORMAL) Comprehensive Metabolic Panel (11/25/2024 4:32 PM EDT) [facility] Sodium 142 135 - 145 mmol/L [facility] Potassium 4.0 3.3 - 5.1 mmol/L [facility] Chloride 110(H) 96 - 108 mmol/L [facility] Carbon Dioxide 26 22 - 29 mmol/L [facility] Anion Gap 10(L) 12 - 20 [facility] Urea Nitrogen (BUN) 12 9 - 16 mg/dL [facility] Creatinine, Serum 0.81 0.5 - 1.4 mg/dL [facility] Creatinine Clr Calc Pharmacy 102.8 [facility] Comment:Provided height and weight: 167.64 cm,84 kg.eGFR (calculated from the MDRD study equation) and eCrCl(calculated from the Cockcroft-Gault equation) are based ondifferent parameters and may not yield comparable results.If eCrCl result is absurd, please check patient'sheight/weight. Estimated Glomerular Filt Rate >60 [facility] Comment:Chronic Kidney Disea se: Estimated GFR < 60 mL/min/1.58l1Gggpxx Kidney Disease: Estimated GFR < 15 mL/min/1.73m2 Glucose 95 60 - 115 mg/dL [facility] Calcium 9.2 8.4 - 10.2 mg/dL [facility] Bilirubin, Total 0.2 0.0 - 1.0 mg/dL [facility] Aspartate Amino Transferase 20 5 - 31 U/L [facility] Alanine Aminotransferase 18 0 - 31 U/L [facility] Total Protein 8.6(H) 6.5 - 8.0 g/dL [facility] Albumin Level 4.6 3.5 - 5.0 g/dL [facility] Alkaline Phosphatase 74 39 - 117 U/L [facility] 11/25/2024 4:32 PM EDT 11/25/2024 4:41 PM EDT Generic External Data Provider LAB BLOOD ORDERAB LES Final Result Performing Organization Address [facility] Co de Phone Number [facility] [address] [place] [phone] * (ABNORMAL) Strep A Nucleic Acid (10/10/2024 1:28 PM EDT) [employer] SERIAL# [id number] [facility] Strep A Nucleic Acid Positive(A ) Negative [facility] Comment:All test results mus t [...] LAB MICROBIOLOGY - GENERAL ORDERABLES Final Result Performing Organization Address [facility]/ZIP Co de Phone Number [facility] [address] [place] [phone] * SARS-CoV-2 RNA, Influenza A/B, and RSV RNA, Ql NAAT (10/10/2024 1:28 PM EDT) Influenza A PCR NEGATIVE Negative [facility] Influenza B PCR NEGATIVE Negative [facility] Resp Syncy Virus RNA Qual PCR NEGATIVE Negative [facility] SARS COV2 PCR NEGATIVE Negative [facility] Comment:All test results mus t [...] use by authorized laboratories.Testing performed on the [employer] GeneXpert utilizingreal-time RT-PCR.All SARS CoV2 and positive influenza A/B results arereported to [facility]. 10/10/2024 1:28 PM EDT 10/10/2024 1:36 PM EDT Generic External Data Provider LAB MICROBIOLOGY - GENERAL ORDERABLES Final Result [facility] [address] [place] [address] [phone] * (ABNORMAL) Lipid Panel, Standard (10/27/2022 2:36 PM EDT) [facility] Cholesterol, Total 191 <200 mg/dL [facility] HDL Cholesterol 38(L) > OR = 50 mg/dL [facility] Triglycerides 215(H) <150 mg/dL [facility] Comment: If a non-fasting specimen was collected, consider repeat triglyceride testing on a fasting specimen if clinically indicated. Davis et al. J. of Clin. Lipidol. 2015;9:129-169. LDL Cholesterol 119(H) mg/dL (calc) [facility] Comment: Reference range: <100 Desirable range <100 mg/dL for primary prevention; ?? <70 mg/dL for patients with CHD or diabetic patients with > or = 2 CHD risk factors. LDL-C is now calculated using the Isaac-Cobos calculation, which is a validated novel method providing better accuracy than the Friedewald equation in the estimation of LDL-C. Isaac SS et al. HARMEET. 2013;310(19): 4843-7038 (http://education.Syntaxin/faq/MDR122) Chol/HDLC Ratio 5.0(H) <5.0 (calc) [facility] Non-HDL Cholesterol 153(H) <130 mg/dL (calc) [facility] Comment: For patients with diabetes plus 1 major ASCVD risk factor, treating to a non-HDL-C goal of <100 mg/dL (LDL-C of <70 mg/dL) is considered a therapeutic option. Blood Venous blood specimen / Unknown 10/27/2022 2:36 PM EDT 10/27/2022 2:37 PM EDT Narrative [facility] - 10/28/2022 3:03 AM EDT FASTING:YES FASTING: YES Susan Nagy [facility] LAB BLOOD ORDERABLES Final Result [facility] [address], [place] [address] [facility] [address] [place] [phone] from Last 3 Months or Most Recently Relevant to Health Maintenance [facility] AD[facility] Care Teams Computed Tomography Scanner Operator Relationship Specialty Start Date End Date Kusum Austin NP [address] [place] [phone] PCP - General Family Medicine 09/17/23
== END 2024-12-08 15:42 | disposition home or self-care (01) ==
LOC: HO.HCS 14:52
DX: R07.9 Chest pain, unspecified (principal); R06.02 Shortness of breath; Z09 Encounter for follow-up examination after completed treatment for conditions other than malignant neoplasm
CPT/HCPCS: 93010; 99214

== ENCOUNTER → 2024-12-08 14:51 | Outpatient (BNVA) | payer MEDICAID, SELFPAY | DX: Z09 Encounter for follow-up examination after completed treatment for conditions other than malignant neoplasm (principal); R07.9 Chest pain, unspecified; R06.02 Shortness of breath; R94.31 Abnormal electrocardiogram [ECG] [EKG] | CPT/HCPCS: 93005; 99212 ==